=== PATIENT | female | born 1945 | race Caucasian/White ===

== ENCOUNTER 2017-08-16 16:40 | Emergency (ER) | payer MEDICARE, MEDICAID ==
[~2017-08-16] VITALS: Ht 162.6 cm; Wt 73.0 kg
[~2017-08-16 16:40] MED LIST: ASPIRIN 325MG325 MG PO; ASPIRIN 81MG TA81 MG PO; FLEXERIL10 MG PO; LORTAB 5/500 501 TAB PO; MEDROL 4MG. DOSE4 MG PO; NASAL SPRAY NS; PLAVIX 75MG TAB75 MG PO
--- NOTE | 2017-08-16 16:45 | Emergency Room Report ---
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 Clinical Suspician of Infection? Mental Status: Sepsis Risk: Have you (or family members/close friends) recently traveled outside the [place]? If Yes, where/when: Have you had exposure to infectious disease within the past month? TB? Other? Specify: Source patient, RN notes reviewed Exam Limitations no limitations Comment Pt comes to the ED with complaints of trouble breathing for the past few days. History of COPD but no nebs or inhalers and not on O2. Feels like she gets hot and coughs but non-productive and no sore throat. She says she still smokes but not very much. Also complains of DONOVAN Cardiac Chest Pain Chest pain indicative of cardiac No ALLERGIES Coded Allergies: Penicillins (08/26/16) Sulfa (Sulfonamide Antibiotics) (08/26/16) diphtheria toxoid,fluid (08/26/16) tetanus and diphtheria toxoids (TETANUS & DIPHTHERIA TOXOIDS) (08/26/16) Home Medications Reported Medications ASPIRIN (Aspirin 325MG) 325 MG PO DAILY History Medical History General CAD? No Angina: No [place]: No Hypertension? No Hyperlipidemia? No CHF? No DVT? No PE? No COPD? Yes Asthma? No Anemia? No GERD? No Gastric ulcers? No GI Bleed? No Hernia? No Thyroid Problems? No Hypothyroidism? No CVA? No Seizures? No Diabetes? No Renal Insuffiency? No End Stage Renal Disease? No UTI? No Stones? No BPH? No GB Disease: No Nephritic Syndrome? No Asplenia? No Hepatitis? No Sickle Cell Disease? No Arthritis? No Migraines? No Cataracts? No Glaucoma? No MRSA? No HIV? No TB? No Anxiety? No Depression? No Cancer? No More? 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 Lung Sounds bilateral: decreased breath sounds. 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 No Results/Orders Laboratory Tests 08/16/17 1812: Urine Color Pending, Urine Appearance Pending, Urine pH Pending, Ur Specific [place] Pending 08/16/17 1640: Sodium 140, Potassium 3.9, Chloride 106, Carbon Dioxide 26, BUN 12, Creatinine 0.9, Estimated Creat Clear 66, Estimated GFR (MDRD) 62, Glucose 109 H, Calcium 9.2, Total Bilirubin 0.2, AST 23, ALT 25, Alkaline Phosphatase 109, Creatine Kinase 364 H, CK-MB (CK-2) Rel Index 1.1, CK and CKMB Interp 4.1 H, Troponin I < 0.02, Total Protein 7.4, Albumin 3.9, Globulin 3.5 H, Albumin/Globulin Ratio 1.1, WBC 9.6, RBC 4.55, Hgb 13.9, Hct 42.8, MCV 94.2, RDW 12.7, Plt Count 215, MPV 8.7, Gran % 54.4, Gran # 5.2, Lymphocytes % 33.8, Monocytes % 6.0, Eosinophils % 4.9, Basophils % 0.8, Lymphocytes # 3.3, Monocytes # 0.6, Eosinophils # 0.5 H, Basophils # 0.1, PUBS MCHC 32.4, MCH 30.5 Current Medication Orders Sig/Cathy Start time Last Medication Dose Route Stop Time Status Admin Albuterol/Ipratropium 0 .STK-MED ONE 08/16 1803 DC INH Methylprednisolone 0 .STK-MED ONE 08/16 1801 DC Sodium Succinate .ROUTE Albuterol/Ipratropium 3 ML ONCE ONE 08/16 1800 DC 08/16 INH 08/16 Methylprednisolone 125 MG ONCE ONE 08/16 1800 DC 08/16 Sodium Succinate IV 08/16 1801 1802 Sodium Chloride 10 ML PRN PRN 08/16 1700 AC IV 08/17 1647 Orders Procedure Date/time Status DIET-NOTHING BY MOUTH 08/16 D Active URINALYSIS/COMPLETE 08/16 1809 Active RT REQUEST DUONEB 08/16 1757 Active ELECTROCARDIOGRAM REQUEST 08/[address] HEAD REQ 08/16 1647 Active IV SALINE LOCK 08/16 1647 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 08/16 1647 Active CBC WITH AUTO DIFF 08/16 1647 Complete CARDIAC ENZYMES 08/16 164 Complete CHEM 12 PROFILE 08/16 1647 Complete XRAY/CT/US XRAY/CT/US XRAY chest XR interpretation by reviewed by me Xray Results normal/NAD, COPD BUT NO ACUTE INFILTRATES Departure Departure Time of Disposition 1808 Disposition DC Home or Self Care(routine) Clinical Impression Primary Impression: Acute exacerbation of chronic obstructive pulmonary disease Secondary Impressions: Cystitis without hematuria Rhabdomyolysis Qualifiers: Rhabdomyolysis type: non-traumatic Qualified Code: M62.82 - Rhabdomyolysis Condition STABLE Referrals Leonel Taylor MD (PCP/Family): 3 Days-Call Office Patient Instructions Acute Cystitis, Chronic Obstructive Pulmonary Disease, DI for Acute Cystitis, DI for Chronic Obstructive Pulmonary Disease, DI for Rhabdomyolysis Additional Instructions Use medicines as directed and followup with PCP in 2 to 3 days for re- evaluation. Return to the ED with any worsening symptoms. Pt encouraged to drink lots of fluids to help with the Muscle enymes being elevated. Discharge Counseling Counseled pt/family regarding diagnosis, test results, home care, follow up needs Prescriptions Current Visit Scripts Prednisone (Prednisone 5MG) 5 MG PO DIRECTED #39 TAB 6 tabs QD X 3D 4 tabs QD X 3D 2 tabs QD X 3D 1 tab QD X 3D Albuterol Sulfate (Proair Hfa) 2 PUFF IH Q6HP PRN COPD #1 INH Ref 1 Levofloxacin (Levaquin 500MG) 500 MG PO DAILY #10 TAB ED Critical Care Critical Care No If Critical Care minutes are documented, the time involved in the performance of seperately reportable procedures was not counted toward critical care time documented. I directly delivered medical care to this critically ill and/or injured patient. Timely evaluation and treatment was necessary to address the significant organ system(s) dysfunction present in this patient. at [id number]
[2017-08-16 16:52] LABS: HEMOGLOBIN 13.9 g/dL (12.2-16.2); LYMPH # 3.3 K/mm3 (0.7-4.5); LYMPH % 33.8 % (10-50.0)
[2017-08-16 17:17] LABS: BUN 12 mg/dL (7-18)
[2017-08-16 17:37] LABS: GFR (ESTIMATED) 62 ML/MIN (59-)
--- NOTE | 2017-08-16 18:02 | RADIOLOGY REPORT PS360 ---
CHEST(2 VIEWS-NOT PORTABLE) HISTORY: CHEST PAIN ORDERING PHYSICIAN: Veronika Borden MD PATIENT AGE: 71 years COMPARISON: 08/26/2016 FINDINGS: The cardiomediastinal silhouette and pulmonary vascularity are within normal limits. The lungs are clear without infiltrates, suspicious nodules, or pleural effusions. No acute bony abnormalities. IMPRESSION: No change with no acute finding
--- NOTE | 2017-08-16 18:04 | RADIOLOGY REPORT PS360 ---
CT HEAD W/O CONTRAST HISTORY: Headache, history of aneurysm C/O WORSENING PAIN IN HEAD; HX OF ANEURYSM ORDERING PHYSICIAN: Veronika Borden MD PATIENT AGE: 71 years COMPARISON: 05/04/2013 TECHNIQUE: Axial images obtained without contrast. Brain and bone windows reviewed. FINDINGS: No midline shift, mass effect, intracranial hemorrhage, hydrocephalus, or extra-axial fluid collection is evident. There is a stent present within the right carotid artery cavernous and suprasellar portion. Nonspecific hypoattenuation is present in the periventricular subcortical white matter consistent with ischemic gliotic change from microvascular disease The calvarium has an unremarkable appearance. No mastoid effusion. The visualized paranasal sinuses are unremarkable. IMPRESSION: 1. No acute intracranial pathology. 2. Chronic microangiopathic changes.
[2017-08-16] MEDS ORDERED: PROAIR HFA0.09 MG/AC IH (18:12)
[2017-08-16] MEDS ORDERED: PREDNISONE 5MG.5 MG PO (18:12)
[2017-08-16] MEDS ORDERED: LEVAQUIN500 MG PO (18:13)
[2017-08-16 18:29] LABS: URINE BILIRUBIN - DIPSTICK NEGATIVE (NEG); URINE BLOOD TRACE-LYSED (NEG)
[2017-08-16 18:38] LABS: URINE SQUAMOUS CELLS 20-50 #/hpf (0-5)
[2017-08-16 18:55] VITALS: BP 133/92
--- OUTSIDE RECORDS SUMMARY | 2017-08-17 04:34 | External Medical Summary Rpt | CCD ---
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 Name Role Phone A Karen MENDIETA MD PSC, A Unavailable Unavailable Karen MENDIETA MD PSC ABORDO MEETA, ABORDO Unavailable Unavailable MEETA ALHAJERI ABD, Unavailable Unavailable ALHAJERI ABD [facility] Unavailable Unavailable MEDICAL, [facility] AYACH SEGUNDO, AYACH SEGUNDO Unavailable Unavailable AYOOB AND, AYOOB AND Unavailable Unavailable BALLERT ELSA, BALLERT Unavailable Unavailable ELSA ERWIN FRA, ERIWN Unavailable Unavailable FRA BERNERT CHARLOTTE, BERNERT Unavailable Unavailable CHARLOTTE BESSON JULIO C, BESSON Unavailable Unavailable JULIO C NIKITA SHADIA, NIKITA Unavailable Unavailable SHADIA HADLEY ALL, HADLEY ALL Unavailable Unavailable [place] [facility] IM[facility] Unavailable Unavailable SERVICE, [facility] Unavailable Unavailable SERVICE, [facility] BRUENING JR FADUMO, Unavailable Unavailable BRUENING JR FADUMO RAEANN RAN, Unavailable Unavailable CALCHERYL RAN [facility] Unavailable Unavailable HOSP, [facility] Unavailable Unavailable CAMPUS, [facility] CELLAROSI - YORBA, Unavailable Unavailable ASIF M, CELLAROSATNAM - EWELINARBEduardo, ASIF M [facility] Unavailable Unavailable [facility], [facility] Unavailable Unavailable [facility], [facility] TOBY JR DAMIAN, Unavailable Unavailable TOBY JR DAMIAN CROSSFIELD SHADIA, Unavailable Unavailable CROSSFIELD SHADIA COLTEN GALLEGOS, COLTEN GALLEGOS Unavailable Unavailable GORDON MAT, GORDON Unavailable Unavailable MAT DORITY SRI, DORITY Unavailable Unavailable SRI EUGENIA GABBIE, EUGENIA Unavailable Unavailable GABBIE ERLANDSON MAXINE, Unavailable Unavailable ERLANDSON MAXINE ERNSPIKER MAXINE, Unavailable Unavailable ERNSPIKER MAXINE ELTON DUNN, Unavailable Unavailable ELTON DUNN FRIED A, FRIED A Unavailable [facility] CANDELARIO PASHA, CANDELARIO Unavailable Unavailable PASHA SORTO II ALA, SORTO II Unavailable Unavailable [facility] Un[facility] Un[facility], [facility] Unavailable Unavailable HOSPITAL P, [facility] P [facility] Unavailable Unavailable SPECIALISTS, [facility] MONTALVO JULIO C, MONTALVO JULIO C Unavailable Unavailable [facility] Unavailable Unavailable PSC, [facility] Unavailable Unavailable KATHERINE, [facility] KATHERINE BRAYDON SINGH RAL, BRAYDON Unavailable Unavailable JR RAL [facility] Unavailable Unavailable IMAGING [facility], [facility] Unavailable Unavailable LLC, [facility] KILPELA JEA, KILPELA Unavailable Unavailable JEA USHA LEEANN, USHA LEEANN Unavailable Unavailable CLAUDETTE C, CLAUDETTE C Unavailable Unavailable [facility]UD[facility], [facility] Un[facility], Unavailable [facility]available [email or web address] [place], Unavailable Unavailable ATTN: [facility], [facility], ATTN: [facility] Unavailable Unavailable HOLDINGS, [facility] Unavailable Unavailable HOLDINGS, [facility], Unavailable Unavailable [facility], Unavailable Unavailable [facility] LINDSEY KAYLYN, LINDSEY KAYLYN Unavailable Unavailable LUTZ TRA, LUTZ TRA Unavailable Unavailable [facility] Unavailable Unavailable SERVICES, [facility] FARHAT SANTIAGO, FARHAT Unavailable Unavailable PAMELA EHSAN PAB, EHSAN Unavailable Unavailable PAB EHSAN PAB, EHSAN Unavailable Unavailable PAB EHSAN, SHAKIRA, Unavailable Unavailable EHSAN, SHAKIRA RUBI JULIO C, RUBI JULIO C Unavailable Unavailable NOELLE BRILL YOL, Unavailable Unavailable NOELLE BRILL YOL LONG BRANT, LONG BRANT Unavailable [facility]available [facility] TSE DUN, TSE Unavailable Unavailable DUN OCTAVIA MICAELA, Unavailable Unavailable OCTAVIA MICAELA LEIDY DUANE, LEIDY DUANE Unavailable Unavailable PALIWAL, VIDHU H, Unavailable Unavailable PALIWAL, VIDHU H PAMPATI [facility], PAMPATI Unavailable Unavailable [facility] PAMPATI, MAHENDER, Unavailable Unavailable PAMANNALEE, MIKE [facility], Unavailable Unavailable PLL[facility], [facility] HOLT A, HOLT A Unavailable Unavailable HOLT, A R, HOLT, A Unavailable Unavailable R PODAPATI, NAGESWARA Unavailable Unavailable R, PODAPATI, NAGESWARA R [facility], [facility], Unavailable Unavailable [facility], Unavailable Unavailable [facility] Unavailable Unavailable LLC, [facility] Unavailable Unavailable LLC, [facility], Unavailable Unavailable [facility] RAMAIAH DIN, RAMAIAH Unavailable Unavailable DIN RASLAU FLA, RASLAU Unavailable Unavailable FLA RICE, CASA Y, RICE, Unavailable Unavailable CASA Y LAUREANO SHADIA, Unavailable Unavailable LAUREANO SHADIA YASMANY TATA, YASMANY TATA Unavailable Unavailable RUSU SHADIA, RUSU SHADIA Unavailable Unavailable KENDRA LOUISA, KENDRA Unavailable Unavailable LOUISA SARTAWI TAR, SARTAWI Unavailable Unavailable TAR SCHLEENBAKER RAN, Unavailable Unavailable SCHLEENBAKER RAN ARUN ABHI, ARUN ABHI Unavailable Unavailable SOKAN BAB, SOKAN BAB Unavailable Unavailable [facility] Unavailable Unavailable [facility], [facility] Unavailable Unavailable [facility], [facility] Unavailable Unavailable EXTENDED H, [facility] EXTENDED H BUCHANAN SCO, BUCHANAN Unavailable Unavailable SCO STEYN PIE, STEYN PIE Unavailable Unavailable STILES NAN, STILES Unavailable Unavailable NAN TALANOW ROL, TALANOW Unavailable Unavailable ROL LALA PHI, LALA PHI Unavailable Unavailable HARP RATNA, HARP RATNA Unavailable Unavailable JEANNETTE MAT, JEANNETTE MAT Unavailable Unavailable [facility], Unavailable Unavailable [facility] BIANCA LEEANN, Unavailable Unavailable BIANCALUIS BRADSHAW WALKER FOR, WALKER Unavailable Unavailable FOR WHAYNE JR THO, WHAYNE Unavailable Unavailable JR THO Purpose Continuity of Care Document - 12-18-2007 through 2016 Problems Code Diagnosis DOS Provider Status [id number] UNS OPEN 09-03-2016 [facility] U[facility] INITIAL ENCOUNTER J449 CHRONIC 08-26-2016 [facility] P DISEASE UNS [id number] PAIN IN 08-26-2016 [facility] R05 COUGH 08-26-2016 [facility] R0602 SHORTNESS 08-26-2016 [place] [facility] [id number] UNS INJURY 08-26-2016 [facility] ENCOUNTER [id number] UNSPECIFIED 08-26-2016 [facility] P ENCOUNTER Z720 TOBACCO USE 08-26-2016 [facility] P I671 CEREBRAL 05-28-2016 [facility] NONRUPTURED [facility] I739 PERIPHERAL 05-28-2016 [facility] DISEASE [facility] UNSPECIFIED H538 OTHER 05-23-2016 [facility] DISTURBANCE [facility] S H9313 TINNITUS 05-23-2016 [facility] R51 HEADACHE 05-23-2016 [facility] [id number] PRIMARY 05-07-2016 [facility]STEOARTH[facility] T[facility] RIGHT [facility] PSC SHOULDER [id number] OTHER 05-07-2016 [facility] SYNOVITIS [facility] PSC TENOSYNOVIT IS RIGHT SHOULDER N81385 PAIN IN 04-12-2016 [facility] 38151 OSTEOARTHRO 06-14-2015 [facility] UNSPEC SERV GEN/LOC [facility]OUNDATION PELV REGION&THIG H 90223 UNSPECIFIED 06-14-2015 [facility] ARTHROPATHY [facility] OTHER SPECIFIED SITES V4364 HIP JOINT 06-14-2015 [facility] BY OTHER MEANS 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 V5481 AFTERCARE 12-07-2014 [facility] FOLLOW[facility] JOINT [facility] REPLACEMENT 57698 PRESSURE 11-26-2014 [facility] UNSPECIFIED MEDICAL SITE EQUIPME 7209 UNSPECIFIED 11-26-2014 [facility] INFLAMMATOR MEDICAL Y EQUIPME SPONDYLOPAT HY 4373 CEREBRAL 09-20-2014 [facility], SERV NONRUPTURED FOUNDATION V1259 PERS HX, 09-20-2014 [facility] DISEASES OF CIRCULATORY SYSTEM V6709 FOLLOW-UP 09-20-2014 [facility] FOLLOWING OTHER SURGERY 5990 URINARY 09-13-2014 [facility] INFECTION LA SITE NOT SPECIFIED 2858 OTHER 08-03-2014 [facility] SPECIFIED HEALTH ANEMIAS CAMPUS 01098 OTHER 08-03-2014 [facility] CHRONIC HEALTH PAIN CAMPUS 496 CHRONIC 08-03-2014 [facility]WAY [facility] OBSTRUCTION CAMPUS NEC 16606 MUSCLE 08-03-2014 [facility] WEAKNESS HEALTH (GENERALIZE CAMPUS D) 7812 ABNORMALITY 08-03-2014 [facility] OF [facility] 99614 UNSPECIFIED 08-03-2014 [facility] HEALTH OF URINE CAMPUS 73773 UNSPECIFIED 08-03-2014 [facility] URINARY [facility] INCONTINENC CAMPUS E 49136 OTH 07-28-2014 A Karen DELGADO MD PSC NS DUE INTERNAL JOINT PROSTHESIS 62354 PAIN IN 07-20-2014 [facility] PELVIC REGION AND THIGH 26598 UNSPECIFIED 07-17-2014 [facility] ARTHROPATHY [facility] PELVIC REGION AND THIGH 77612 NONTRAUMATI 07-17-2014 [facility] RUPTURE SERV OF TENDONS [facility]OUND[facility] OF BICEPS 7993 UNSPECIFIED 07-17-2014 [facility]BILITY [facility] 2859 UNSPECIFIED 07-14-2014 [facility] ANEMIA [facility] 7823 EDEMA 07-14-2014 [facility] V4365 KNEE JOINT 07-14-2014 [facility] BY OTHER [facility] MEANS 3384 CHRONIC 07-13-2014 [facility] SYNDROME [facility] 67880 UNSPECIFIED 07-13-2014 [facility] CONSTIPATIO [place] N 63302 PRESSURE 07-09-2014 [facility] BUTTOCK [facility] 57775 PRESSURE 07-09-2014 [facility] STAGE SERV II [facility]OUND[facility] 82825 GENERALIZED 07-09-2014 [facility] 7292 UNSPECIFIED 07-08-2014 [facility] NEURALGIA SERV NEURITIS [facility] AND RADICULITIS 1123 CANDIDIASIS 07-03-2014 [facility] 57798 OTHER 07-03-2014 [facility] SPECIFIED SERV ERYTHEMATOU [facility]OUNDAT[facility] S CONDITION OTHER 19422 PRESSURE 07-03-2014 [facility] LOWER SERV BACK [facility] 16221 PRESSURE 07-03-2014 [facility] STAGE SERV I [facility] 7140 RHEUMATOID 07-03-2014 [facility]THRITIS SERV [facility] 7820 DISTURBANCE 07-03-2014 [facility] V1302 PERSONAL 07-03-2014 [facility] URINARY HOS[facility] TRACT INFECTION V5789 OTHER 07-03-2014 [facility]CIF[facility]HAB[facility]AT [facility] ION PROCEDURE OTHER 31294 PRIMARY LOC 06-30-2014 [facility] OSTEOARTHRO FOUNDAT[facility] SIS PELVIC REGION&THIG H 55749 CHEST PAIN 06-30-2014 [facility] UNSPECIFIED SERV [facility] V4589 OTHER 06-30-2014 [facility] POSTSURGICA SERV L STATUS [facility] OTHER V5881 FITTING AND 06-30-2014 [facility] OF [facility] VASCULAR CATHETER 2102 BENIGN 06-28-2014 [facility] OF SERV MAJOR [facility] SALIVARY GLANDS 7840 HEADACHE 06-28-2014 [facility] 77400 OTHER 06-28-2014 [facility] DYSPNEA AND SERV [facility] RESPIRATORY ABNORMALITI ES 7295 PAIN IN 06-24-2014 [facility]FT [facility] TISSUES OF FOUNDATION LIMB 55875 SHORTNESS 06-24-2014 [facility] SERV [facility] 14853 OTHER 06-24-2014 [facility] NONSPECIFIC SERV ABNORMAL [facility] FINDING OF LUNG FIELD 7881 DYSURIA 06-16-2014 [facility] 4329 UNSPECIFIED 06-06-2014 [facility] INTRACRANIA L HEMORRHAGE V5863 LONG-TERM 06-06-2014 [facility] USE OF HOSPITAL ANTIPLATELE T/ANTITHROM BOTIC 01692 UNSPECIFIED 05-03-2014 [facility] TINNITUS SERV [facility] 79620 UNSPECIFIED 05-03-2014 [facility] SENSORINEUR [facility] AL HEARING LOSS 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 38968 SPINAL STEN 04-21-2014 [facility]UMB [facility] SERV W/O FOUNDATIO NEUROGENIC CLAUDICATIO N 7243 SCIATICA 04-21-2014 [facility] 5967 HEMORRHAGE 01-03-2014 [facility] INTO [facility] BLADDER [facility] WALL 2270 BENIGN 01-02-2014 [facility] OF SERV ADRENAL FOUNDATIO GLAND 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 591 HYDRONEPHRO 01-02-2014 [facility] SIS [facility] 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 [facility] 5969 UNSPECIFIED 01-02-2014 [facility] DISORDER [facility] OF BLADDER [facility] 61157 HEMATURIA 01-02-2014 [facility] UNSPECIFIED SERV [facility] 6238 OTHER 01-02-2014 [facility] SPECIFIED [facility] NONINFLAMMA SERVICE TORY DISORDER VAGINA 6259 UNSPEC 01-02-2014 [facility]MPTOM [facility] ASSOC [facility] W/FEMALE GENITAL ORGANS 43124 ABDOMINAL 01-02-2014 [facility] PAIN, AMBULANCE UNSPECIFIED SERVICE SITE 5952 OTHER 12-16-2013 [facility]RON[facility] CYSTITIS [facility] 5959 UNSPECIFIED 12-16-2013 [facility] CYSTITIS [facility] 54784 OTHER 12-16-2013 [facility]CIF[facility] DISORDERS FOUNDAT[facility] OF BLADDER 28974 GROSS 12-16-2013 [facility]EMAT[facility] 4292 UNSPECIFIED 12-13-2013 [facility] CARDIOVASCU LAR DISEASE V7283 OTHER 12-13-2013 [facility] PRE-OPERATI VE EXAMINATION V7284 UNSPECIFIED 12-13-2013 [facility] PRE-OPERATI [facility] VE EXAMINATION 6256 FEMALE 11-24-2013 [facility] INCONTINENC E 11284 URGE 11-24-2013 [facility] HOSPITAL E 39265 INCONTINENC 11-24-2013 [facility] SENSORY AWARENESS 5539 ABHISHEK UNS 11-15-2013 [facility] ABD SERV CAV W/O FOUNDATIO MENTION OBST/GANGRE N 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 29491 DIVERTICULO 11-15-2013 [facility] COLON 45069 CALCU 11-15-2013 [facility] AZLE W/O MENTION CHOLECYST/O BST 7935 NONSPECIFIC 11-15-2013 [facility] FINDING RAD & OTH EXAM ORGAN 72997 ANEURYSM OF 11-09-2013 [facility] SPECIFIED ARTERY 32301 OTHER 10-06-2013 [facility] URINARY [facility] INCONTINENC FOUNDATIO E 34826 POLYURIA 10-01-2013 [facility] 79909 DEHYDRATION 09-16-2013 [facility] 7226 DEGENERATIO 09-16-2013 [facility] INTERVERTEB RAL DISC SITE UNSPEC V8801 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 82535 MALIHA 08-10-2013 [facility]IGRAINE SERV NEC W/O FOUNDATIO INTRACT W/O STAT MIGRNOSUS 63422 NUCLEAR 08-10-2013 [facility] SCLEROSIS SERV [facility] 2382 NEOPLASM OF 08-09-2013 [facility] BEHAVIOR OF SKIN 51458 OTHER 08-09-2013 [facility] KERATOSIS V5866 LONG-TERM 07-15-2013 [facility] ASPIRIN 2410 NONTOXIC 05-26-2013 [facility] 2409 GOITER, 05-05-2013 [facility] UNSPECIFIED SERV F[facility] 4371 OTH 05-05-2013 [facility] GENERALIZED SERV ISCHEMIC FOUNDATIO CEREBROVASC ULAR DISEASE 4429 OTHER 05-04-2013 [facility] UNSPECIFIED SITE 2559 UNSPECIFIED 11-19-[address] [facility] OF ADRENAL GLANDS 2558 OTHER 10-05-2012 [facility] HOSPITAL DISORDERS OF ADRENAL GLANDS 5718 OTHER 10-05-2012 [facility] NONALCOHOLI C LIVER DISEASE 1120 CANDIDIASIS 09-25-2012 A Karne FABIAN MD [facility] 54113 OSTEOARTHRO 09-14-2012 [facility] UNSPEC EMERGENCY WHETHER SERVICES GEN/LOC UNSPEC SITE 7220 DISPLCMT 09-14-2012 [facility] MEDICAL INTERVERT IMAGING ASS DISC WITHOUT MYELOPATHY 7224 DEGENERATIO 09-14-2012 [facility] OF MEDICAL CERVICAL IMAGING ASS INTERVERTEB RAL DISC 8470 NECK SPRAIN 09-14-2012 [facility] 7821 RASH AND 09-07-2012 A Karen SUAZO MD [facility] NONSPECIFIC SKIN ERUPTION 7842 SWELLING 08-24-2012 [facility] M[facility] OR SERV LUMP IN FOUNDATIO HEAD AND NECK 683 ACUTE 06-22-2012 [facility] LYMPHADENIT SERV IS FOUNDATIO 7242 LUMBAGO 06-15-2012 Eduardo MENDIETA MD [facility] 2469 UNSPECIFIED 05-15-2012 [facility] DISORDER [facility] OF THYROID [facility] 27817 COR 05-15-2012 [facility] ATHEROSLERO SERV UNSPEC FOUNDATIO TYPE VESSEL ELIM IRA/LYNN T 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 IRA CORONARY ARTERY 4779 ALLERGIC 05-15-2012 [facility] RHINITIS [facility] CAUSE [facility] UNSPECIFIED 5533 DIAPHRAGMAT 05-15-2012 [facility] W/O HOSPITAL MENTION OBSTRUCTION /GANGREN 7231 CERVICALGIA 05-15-2012 [facility] 12178 DYSPHONIA 05-15-2012 [facility] 7856 ENLARGEMENT 05-15-2012 [facility] NODES 57768 OTHER VOICE 01-27-2012 [facility] RESONANCE [facility] DISORDERS 2720 PURE 10-01-2011 [facility] TEROLEMIA 2724 OTHER AND 10-01-2011 [facility] UNSPECIFIED NEUMANNS EXTENDED H HYPERLIPIDE MARJORIE 3559 MONONEURITI 10-01-2011 [facility] S OF NEUMANNS UNSPECIFIED EXTENDED H SITE 4910 SIMPLE 10-01-2011 [facility] CHRONIC NEUMANNS BRONCHITIS EXTENDED H 11557 UNSPECIFIED 10-01-2011 [facility] NE[facility]AN[facility] ARTHROPATHY EXTENDED H SITE UNSPECIFIED V5861 LONG-TERM 10-01-2011 [facility] USE OF ANTICOAGULA NTS V6759 OTHER 10-01-2011 [facility] EXAMINATION OTHER 4240 MITRAL 09-10-2011 [facility] DISORD[facility] MEDICAL 69010 OTHER CHEST 09-10-2011 [facility] MEDICAL 05629 ABDOMINAL 09-10-2011 [facility], SERVICES GENERALIZED 79399 ABDOMINAL 09-10-2011 [facility] OTHER REGIONAL SPECIFIED MEDICAL SITE V641 SURG/OTH 09-10-2011 [facility] NOT REGIONAL DONE MEDICAL BECAUSE CONTRAINDIC ATION 4659 ACUTE URIS 08-27-2011 [facility] OF NEUMANNS UNSPECIFIED EXTENDED H SITE 24511 OTHER 08-05-2011 [facility]URODIAGNO MALAISE AND STICPSC FATIGUE V5883 ENCOUNTER 06-21-2011 [facility] THERAPEUTIC DRUG MONITORING V7109 OBSERVATION 06-21-2011 [facility] OF OTHER [facility]AGNO[facility]ICS SUSPECTED MENTAL CONDITION 0539 HERPES 05-23-2011 [facility] WITHOUT EXTENDED H MENTION OF COMPLICATIO N 7244 THORACIC/JAY 05-23-2011 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 [facility] OR LARYNX 4786 EDEMA OF 05-14-2011 [facility] 4241 AORTIC 04-25-2011 [facility]ORD[facility] 59599 PRECORDIAL 04-25-2011 HEART & PAIN WEBSITE ADMIN V5869 LONG-TERM 04-18-2011 [facility] (CURRENT) [facility] USE OF OTHER MEDICATIONS 2278 SHAYNE 04-06-2011 [facility] GLANDS&RELA CIERA STRCT 35307 JAW PAIN 04-06-2011 [facility], ATTN: DANIEL 2374 NEOPLASM 03-27-2011 [facility] UN[facility]AIN [facility] BHV F[facility] OTH&UNSPEC ENDOCRN GLANDS 4019 UNSPECIFIED 03-13-2011 [facility], HYPERTENSIO ATTN: DANIEL N 05843 OTHER 03-13-2011 [place] [facility], DISORDER OF ATTN: DANIEL INTESTINES 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 5789 UNSPECIFIED 03-07-2011 [facility] HEMORRHAGE PHYSICIAN OF KATHERINE GASTROINTES TINAL TRACT 5781 BLOOD IN 03-04-2011 [facility] 2350 NEOPLASM 02-18-2011 [facility] BEHAVIOR KATHERINE MAJOR SALIV GLANDS 65575 TOX DIFFUSE 02-18-2011 [facility] W/O CLINIC PSC THYROTOX CRISIS/STOR M 4780 HYPERTROPHY 02-18-2011 [facility] PSC TURBINATES 78338 DYSPHAGIA 02-18-2011 [facility] UNSPECIFIED CLINIC PSC 2397 NEOPLSM UNS 02-07-2011 [facility], ENDOCRN ATTN: DANIEL GLND&OTH PART NERV SYS 7062 SEBACEOUS 02-01-2011 E[facility] PAB CYST 93966 EFFUSION OF 12-03-2010 [facility] SHOULDER STICPS JOINT 29248 PAIN IN 12-03-2010 NEURODIAGNO JOINT, [facility] SHOULDER REGION 53239 STIFFNESS 12-03-2010 NEURODIAGNO OF JOINT [facility] SHOULDER REGION 96353 OTHER 11-08-2010 [facility] SPECIFIED MEDI ARTHROPATHY [facility] SITE UNSPECIFIED 02839 LOC 10-04-2010 [facility] OSTEOARTHRO MED CTR, S NOT SPEC ATTN: DENE WHETHER PRIM/SEC HAND 00618 OSTEOARTHRO 10-04-2010 [facility] SIS UNSPEC [facility] GEN/LOCALIZ ED HAND 70065 SWELLING OF 10-04-2010 [facility] LIMB MED CTR, ATTN: DENE 9158 OTH&UNSPEC 10-04-2010 [facility] SUP INJURY MED CTR, FINGER ATTN: DENE WITHOUT MENTION INF 90682 OTHER&UNSPE 09-21-2010 [facility] C DISC MED CTR, DISORDER ATTN: EVERE UNSPEC REGION V571 OTHER 09-21-2010 [facility] PHYSICAL MED CTR, THERAPY ATTN: DENE 7212 THORACIC 09-04-2010 [facility] SPONDYLOSIS MED CTR WITHOUT MYELOPATHY 7241 PAIN IN 09-04-2010 [facility] THORACIC MED CTR SPINE 7245 UNSPECIFIED 09-04-2010 [facility] PAB BACKACHE 66890 PAINFUL 08-25-2010 [facility] RESPIRATION MED CTR 95242 HERPES 08-24-2010 [facility] PAB ZOSTER KERATOCONJU NCTIVITIS V574 ORTHOPTIC 08-21-2010 [facility] TRAINING MED CTR 66149 PAIN IN 07-19-2010 E[facility] PAB JOINT, LOWER LEG 24788 GALLSTONE 06-13-2010 [facility] 86784 DISORDER OF 06-06-2010 [facility] UNSPECIFIED CENT 39160 ACUTE 05-17-2009 [facility], LARYNGITIS, SHAKIRA WITHOUT MENTION OF OBSTRUCTIO 7234 BRACHIAL 03-02-2009 [facility], NEURITIS OR SHAKIRA RADICULITIS NOS 9156 FINGER SUP 09-07-2008 [place] [facility] W/O CODY MED CTR OPEN WOUND&W/O MENTION INF 21398 NAUSEA 12-19-2007 [facility] Allergies, Adverse Reactions, Alerts Type Drug Allergy Adverse Reaction to Substance Substance Reaction Severity PCN (penicillin) Unknown Unknown SULFA (sulfonamide) Unknown Unknown Dtap (Daptacel, Unknown Unknown Infanrix, [employer]) Diphtheria Toxoid, Unknown Unknown Adsorbed Vital Signs 05-04-2013 20:11 Name Value Interpretat Reference Comment ion Range Body 98.8 [degF] Temperature BP 83 mm[Hg] Diastolic BP Systolic 137 mm[Hg] Heart 78 /min Rate/Pulse O2% 96 % Respiratory 18 /min Rate 05-04-2013 20:03 Name Value Interpretat Reference Comment ion Range Body 98.8 [degF] Temperature 05-04-2013 19:24 Name Value Interpretat Reference Comment ion Range BP 90 mm[Hg] Diastolic BP Systolic 142 mm[Hg] Heart 79 /min Rate/Pulse O2% 96 % Respiratory 18 /min Rate Results Labs Lab Lab Date Result Refere Interp Status Commen Order Detail nces retati t Range on CBC w auto diff (08-16-2017 16:40) Automat = 4.9 % 0.1-12. complet ed 017 0 ed blood 16:40 eosinop hils/10 0 leukocy t Blood = 5.2 1.8-7.8 complet granulo 017 K/mm3 ed cytes 16:40 automat ed count (numb Granulo = 54.4 37.0-80 complet cyte 017 % .0 ed percent 16:40 age Blood = 42.8 37.0-47 complet hematoc 017 % .0 ed rit 16:40 (volume fractio n) Blood = 13.9 12.2-16 complet hemoglo 017 g/dL .2 ed bin 16:40 measure ment (mass/v olum Absolut = 3.3 0.7-4.5 complet e 017 K/mm3 ed lymphoc 16:40 yte count Lymphoc = 33.8 10-50.0 complet yte 017 % ed count, 16:40 blood, automat ed Mean = 30.5 27-31.2 complet corpusc 017 pg ed ular 16:40 hemoglo bin ([facility]) determ Automat = 32.4 31.8-35 complet ed 017 g/dl .4 ed erythro 16:40 cyte mean corpusc ular h Automat = 94.2 82.2-97 complet ed 017 fl .8 ed erythro 16:40 cyte mean corpusc ular v Absolut = 0.6 0.1-1.0 complet e 017 K/mm3 ed monocyt 16:40 e count Gilchrist % = 6.0 % 1.7-9.3 complet 017 ed 16:40 Automat = 8.7 7.4-10. complet ed 017 fl 4 ed blood 16:40 platele t mean volume landry Blood = 215 142-424 complet platele 017 K/mm3 ed t count 16:40 Red = 4.55 4.2-5.4 complet blood 017 M/mm3 ed cell 16:40 count Automat = 12.7 11.5-17 complet ed 017 % .5 ed erythro 16:40 cyte distrib ution width Blood = 9.6 4.8-10. complet leukocy 017 K/MM3 8 ed alen 16:40 count (number /volume ) Automat = 0.1 0-0.2 complet ed 017 K/MM3 ed blood 16:40 basophi l count (count/ vo Baso % = 0.8 % 0.1-2.0 complet 017 ed 16:40 Automat = 0.5 0.0-0.4 complet ed 017 K/mm3 ed blood 16:40 eosinop hil count BASIC METABOLIC PANEL (05-04-2013 19:10) Glucose 108 74-106 complet 013 mg/dL ed Bld-mCn 19:10 c BUN 11 7-18 complet Bld-mCn 013 mg/dL ed c 19:10 Creat 0.9 0.6-1.0 complet SerPl-m 013 mg/dL ed Cnc 19:10 ESTIMAT 05-04-2 78 50-200 complet ED 013 ML/MIN ed CREATIN 19:10 INE CLEARAN CE GFR 62 59- complet (ESTIMA 013 ML/MIN ed CIERA) 19:10 Sodium 05-04-2 141 136-145 complet SerPl-s 013 mmoL/L ed Cnc 19:10 Potassi 2 4.1 3.5-5.1 complet um 013 mmoL/L ed SerPl-s 19:10 Cnc Chlorid 105 98-107 complet e 013 mmoL/L ed SerPl-s 19:10 Cnc CO2 05-04- 30 21.0-32 complet SerPl-s 013 mmoL/L .0 ed Cnc 19:10 Calcium 05-04- 9.2 8.5-10. complet 013 mg/dL 1 ed SerPl-m 19:10 Cnc CBC with AUTO DIFF (05-04-2013 19:10) WBC # 07-02-2 10.6 4.8-10. complet Bld 013 K/MM3 8 ed Auto 19:10 RBC # 02-2 5.08 4.2-5.4 complet Bld 013 M/mm3 ed Auto 19:10 Hgb 02-2 15.4 12.2-16 complet Bld-mCn 013 g/dL .2 ed c 19:10 Hct Fr 05-04-2 48.1 % 37.0-47 complet Bld 013 .0 ed 19:10 MCV RBC 05-04-2 94.7 fl 82.2-97 complet 013 .8 ed 19:10 MCH RBC 02-2 30.4 pg 27-31.2 complet Qn 013 ed Auto 19:10 MEAN 02-2 32.1 31.8-35 complet CORPUSC 013 g/dl .4 ed ULAR 19:10 HGB CONC RDW RBC 02-2 13.7 % 11.5-17 complet Auto 013 .5 ed 19:10 Platele 05-04- 228 142-424 complet t Bld 013 K/mm3 ed Ql 19:10 Manual MEAN 05-04-2 7.9 fl 7.4-10. complet PLATELE 013 4 ed T 19:10 VOLUME Granulo 07-02-2 57.1 % 37.0-80 complet cytes 013 .0 ed Fr Bld 19:10 Auto LYMPH % 07-02-2 32.8 % 10-50.0 complet 013 ed 19:10 Monocyt 07-02-2 5.4 % 1.7-9.3 complet es Fr 013 ed Bld 19:10 Auto Eosinop 07-02-2 4.1 % 0.1-12. complet hil Fr 013 0 ed Bld 19:10 Auto Basophi 07-02-2 0.6 % 0.1-2.0 complet ls Fr 013 ed Bld 19:10 Auto Granulo 07-02-2 6.0 1.8-7.8 complet cytes # 013 K/mm3 ed Bld 19:10 Auto Lymphoc 07-02-2 3.5 0.7-4.5 complet ytes Fr 013 K/mm3 ed Bld 19:10 Auto Monocyt 07-02-2 0.6 0.1-1.0 complet es # 013 K/mm3 ed Bld 19:10 Auto Eosinop 07-02-2 0.4 0.0-0.4 complet hil # 013 K/mm3 ed Bld 19:10 Auto Basophi 07-02-2 0.1 0-0.2 complet ls # 013 K/MM3 ed Bld 19:10 Auto Procedures Procedure DOS Code Location Performer Comment DEBRIDEME 11619 [facility] NT OPEN [facility] WOUND 20 INC INC SQ CM/< DEBRIDEME 49455 TVAO VO NT OPEN 6 [facility] WOUND 20 INC INC SQ CM/< PHYSICAL 73504 [facility] VO THERAPY 6 [facility] EVALUATIO INC INC N RADIOLOGI 42947 [facility] ALL C EXAM 6 MEDICAL CHEST 2 IMAGING VIEWS ASS FRONTAL&L ATERAL CREATINE 72971 [facility] VO KINASE MB 6 [facility] FRACTION INC INC ONLY RADIOLOGI 47515 [facility] C 6 MEDICAL EXAMINATI IMAGING ON KNEE 3 ASS VIEWS CREATINE 49178 [facility] VO KINASE 6 [facility] TOTAL INC INC ECG 89879 [facility] VO ROUTINE 6 [facility] ECG INC INC W/LEAST 12 LDS TRCG ONLY W/O I&R COMPREHEN 06312 [facility] SIVE 6 [facility] [place] [address] T[facility] VO TROPONIN 6 [facility] QUANTITAT INC INC [place] BLOOD 30324 TAVO VO COUNT 6 [facility] COMPLETE INC INC AUTO&AUTO DIFRNTL WBC ECG 73958 TAVO FABRICIO ROUTINE 6 [facility] W/LEAST P 12 LDS I&R ONLY ANGIOGRAP 28123 [place] ALHAJERI HY 6 MEDICAL ABD EXTREMITY SERV FOUNDATIO UNILATERA N L RS&I 3D 74572 [place] ALHAJER[place] RENDERING 6 MEDICAL ABD SERV W/INTERP& FOUNDATIO POSTPROC N DIFF WORK STATION ANESTHESI 78804 [place] DORITY A 6 MEDICAL SRI DIAGNOSTI SERV C FOUNDATIO ARTERIOGR N APHY/VENO GRAPH SLCTV 92986 [place] LUZ MARINA CATH 6 MEDICAL ABD CAROTID/I SERV NNOM ART FOUNDATIO ANGIO N INTRCRANL ART CREATININ 863[address] [facility] E BLOOD 6 Y [place] [address] [place] RASLAU ANGIOGRAP 6 MEDICAL FLA HY HEAD SERV W/CONTRAS FOUNDATIO T/NONCONT N RAST LOCM Q9967 [facility] UNIVERS [phone] 6 Y Y MG/ML HOSPITAL HOSPITAL IODINE CONCENTRA TION PER ML THERAPEUT 67256 PROFESSIO CROSSFIEL IC PX 1/> 6 [facility] EACH 15 PSC MIN EXERCISES THERAPEUT 10902 PROFESSIO CROSSFIEL IC PX 1/> 6 [facility] EACH 15 PSC MIN EXERCISES PHYSICAL 26924 PROFESSIO CROSSFIEL THERAPY 6 NAL REHAB D SHADIA EVALUATIO ASSOC N PSC RADEX 89523 [facility]AC[facility] ALL SHOULDER 6 MEDICAL 1 VIEW IMAGING ASS RADEX 34880 TAVO VO SHOULDER 6 [facility] COMPLETE INC INC MINIMUM 2 VIEWS [address] [facility] HIPS 5 [facility] 2 VIEWS ANTEROPOS T PELVIS RADEX HIP 77112 LESLIE HOOD 5 MEDICAL FRA UNILATERA SERV L FOUNDATIO COMPLETE N MINIMUM 2 VIEWS RADIOLOGI 65230 LESLIE HOOD C 5 MEDICAL FRA EXAMINATI SERV ON PELVIS FOUNDATIO 1/2 N VIEWS HOS BED E0260 [facility] SEMI-ELEC 5 HOME HOME W/ANY MEDICAL MEDICAL TYPE SIDE EQUIPME EQUIPME RAIL W/MATTRSS PWR E0181 [facility] PRESSURE 5 HOME HOME REDUCING MEDICAL MEDICAL MATTRESS EQUIPME EQUIPME OVERLY/PA D PUMP PWR E0181 [facility] PRESSURE 4 HOME HOME REDUCING MEDICAL MEDICAL MATTRESS EQUIPME EQUIPME OVERLY/PA D PUMP HOS BED E0260 [facility] HOW[facility] SEMI-ELEC 4 HOME HOME W/ANY MEDICAL MEDICAL TYPE SIDE EQUIPME EQUIPME RAIL W/MATTRSS HOS BED E0260 [facility] HOW[facility] SEMI-ELEC 4 HOME HOME W/ANY MEDICAL MEDICAL TYPE SIDE EQUIPME EQUIPME RAIL W/MATTRSS PWR E0181 [facility] PRESSURE 4 HOME HOME REDUCING MEDICAL MEDICAL MATTRESS EQUIPME EQUIPME OVERLY/PA D PUMP GUIDE C17[address] [facility] WIRE 4 Y Y HOSPITAL HOSPITAL INJECTION J1644 [facility] HEPARIN 4 Y Y SODIUM [facility] PER 1000 [address]HROM[address] [facility] IN TIME 4 Y Y HOSPITAL HOSPITAL LOCM Q9967 [facility] [phone] 4 Y Y MG/ML HOSPITAL HOSPITAL IODINE CONCENTRA TION PER ML COMPREHEN [address] [facility] SIVE 4 Y Y METABOLIC [facility] PANEL INJECTION J0330 [facility] 4 Y Y SUCCINYLC [facility] HOLINE CHLORIDE UP TO 20 MG SLCTV 02819 [place] ALHAJER[place] CATH 4 MEDICAL ABD INTRNL SERV CAROTID FOUNDATIO ART ANGIO N INTRCRNL ART CLOSURE C[address] [facility] DEVICE 4 Y Y VASCULAR H[facility]PITAL HOSPITAL INTRDUCR/ C1894 [facility] SHEATH 4 Y Y NOT GUID [facility] INTRACARD EP NON-LASR BLOOD [address] [facility] COUNT 4 Y Y COMPLETE [facility] AUTOMATED INJECTION J3[address] [facility] FENTANYL 4 Y Y CITRATE [facility] 0.1 MG ANESTHESI 24877 [place] RAMAIAH A 4 MEDICAL DIN CAROTID/C SERV ORONARY FOUNDATIO THER N IVNTL RAD INFUSION J7030 [facility] NORMAL 4 Y Y SALINE [facility] SOLUTION 1000 CC SLCTV 34036 [place] ALHAJERI CATH 4 MEDICAL ABD CAROTID/I SERV NNOM ART FOUNDATIO ANGIO N INTRCRANL ART 3D 51845 [place] RENDERING 4 MEDICAL MEDICAL SERV SERV W/INTERP& FOUNDATIO FOUNDATIO POSTPROC N N DIFF WORK STATION US VASC [address] [facility] ACCESS 4 Y Y SITS VSL [facility] PATENCY NDL ENTRY PLCMT G0269 [facility] OCCL DEVC 4 Y Y [facility] IRENE/ART POST SURG/INTR VNL PROC CULTURE 28679 COMBINED COMBINED BACTERIAL 4 PHYSICIAN PHYSICIAN S LA S LA QUANTTATI VE COLONY COUNT URINE URNLS DIP 18340 COMBINED COMBINED 4 PHYSICIAN PHYSICIAN STICK/TAB S LA S LA LET REAGENT AUTO MICROSCOP Y SUSCEPTIB 59941 COMBINED COMBINED ILITY 4 PHYSICIAN PHYSICIAN STUDY S LA S LA ANTIMICRO BIAL DISK METHOD PWR E0181 [facility] LAWRENCE PRESSURE 4 HOME HOME REDUCING MEDICAL MEDICAL MATTRESS EQUIPME EQUIPME OVERLY/PA D PUMP HOS BED E0260 [facility] LAWRENCE SEMI-ELEC 4 HOME HOME W/ANY MEDICAL MEDICAL TYPE SIDE EQUIPME EQUIPME RAIL W/MATTRSS WHL ATTCH E0155 [facility] LAWRENCE RIGD 4 HOME HOME PICK-UP MEDICAL MEDICAL WALK-PAIR EQUIPME EQUIPME SEAT ATTCH WALK SBSQ 16917 A C KILPELA NURSING 4 GAYATRI ART [facility] PSC CARE/DAY E/M STABLE 10 MIN SBSQ 66350 A C KILPELA NURSING 4 GAYATRI ART [facility] PSC CARE/DAY E/M STABLE 10 MIN RADEX HIP [address] [facility] 4 Y Y UNILATERA [facility] L 1 VIEW RADIOLOGI 74252 [facility] 4 Y Y [facility] PELVIS 11/04 [facility] [address] [facility] 4 MEDICAL NAN DAY SERV MANAGEMEN FOUNDATIO T 30 MIN/< SBSQ 73596 [place] [address] MEDICAL [place] CARE/DAY SERV 25 FOUNDATIO MINUTES SBSQ 66560 [place] [address] MEDICAL NAN CARE/DAY SERV 25 FOUNDATIO MINUTES SBSQ 68189 [place] [address] MEDICAL NAN CARE/DAY SERV 25 FOUNDATIO MINUTES SBSQ 44169 [place] [address] MEDICAL NAN CARE/DAY SERV 25 FOUNDATIO MINUTES SBSQ 23208 [place] [address] MEDICAL NAN CARE/DAY SERV 25 FOUNDATIO MINUTES SBSQ 37997 [place] [address] MEDICAL NAN CARE/DAY SERV 25 FOUNDATIO MINUTES SBSQ 67654 [place] [address] MEDICAL MAXINE CARE/DAY SERV 25 FOUNDATIO MINUTES SBSQ 22174 [place] [address] MEDICAL KER RAN CARE/DAY SERV 25 FOUNDATIO MINUTES SBSQ 31050 [facility] 4 MEDICAL KER RAN CARE/DAY SERV 25 FOUNDATIO MINUTES SBSQ 93035 [place] [address] MEDICAL NAN CARE/DAY SERV 25 FOUNDATIO MINUTES SBSQ 75004 [place] [address] MEDICAL NAN CARE/DAY SERV 25 FOUNDATIO MINUTES SBSQ 45600 [place] [address] MEDICAL NAN CARE/DAY SERV 25 FOUNDATIO MINUTES SBSQ 20050 [place] [address] MEDICAL NAN CARE/DAY SERV 25 FOUNDATIO MINUTES DUP-SCAN 47953 EUGENIA EUGENIA XTR VEINS 4 GABBIE GABBIE COMPLETE BILATERAL STUDY SBSQ 37414 [place] [address] MEDICAL MICAELA CARE/DAY SERV 35 FOUNDATIO MINUTES SBSQ 06640 [place] [address] MEDICAL ALA CARE/DAY SERV 35 FOUNDATIO MINUTES N INITIAL 54385 [facility] 4 MEDICAL MICAELA CARE/DAY SERV 70 FOUNDATIO MINUTES SBSQ 87479 [facility] 4 MEDICAL ALA CARE/DAY SERV 35 FOUNDATIO MINUTES N SBSQ 35754 [facility] 4 MEDICAL ALA CARE/DAY SERV 25 FOUNDATIO MINUTES N SBSQ 28909 [facility] 4 MEDICAL ALA CARE/DAY SERV 25 FOUNDATIO MINUTES N LEVEL III 39776 [place] LAUREANO SURG 4 MEDICAL SHADIA PATHOLOGY SERV FOUNDATIO GROSS&MIRTA ROSCOPIC EXAM DECALCIFI 04876 [place] LAUREANO CATION 4 MEDICAL SHADIA PROCEDURE SERV FOUNDATIO ECG 75383 [place] CLAUDETTE CHI ROUTINE 4 MEDICAL ECG SERV W/LEAST FOUNDATIO 12 LDS N I&R ONLY RADEX HIP 78657 [facility] 4 MEDICAL MEDICAL UNILATERA SERV SERV L FOUNDATIO FOUNDATIO COMPLETE MINIMUM 2 VIEWS RADIOLOGI 93091 [place] ERWIN 4 MEDICAL FRA EXAMINATI SERV ON PELVIS FOUNDATIO 1/2 VIEWS ARTHRP 07602 [place] ARUN ABHI ACETBLR/P 4 MEDICAL EVELIN FEM SERV PROSTC FOUNDATIO AGRFT/ALG RFT SBSQ 59239 [facility] 4 MEDICAL ALA CARE/DAY SERV 25 FOUNDATIO MINUTES N SBSQ 20083 [facility] 4 MEDICAL ALA CARE/DAY SERV 25 FOUNDATIO MINUTES N SBSQ 54765 [facility] 4 MEDICAL CARE/DAY SERV 25 FOUNDATIO MINUTES N SBSQ 52539 [facility] 4 MEDICAL CARE/DAY SERV 25 FOUNDATIO MINUTES N SBSQ 21055 [facility] 4 MEDICAL CARE/DAY SERV 25 FOUNDATIO MINUTES N RADIOLOGI 81952 [facility] LEEANN C 4 MEDICAL EXAMINATI SERV ON CHEST FOUNDATIO [place] FRONTAL RADIOLOGI 16299 [place] [facility] C 4 MEDICAL EXAMINATI SERV ON CHEST FOUNDATIO [place] FRONTAL RADEX HIP 12833 [place] [facility] 4 MEDICAL UNILATERA SERV L FOUNDATIO COMPLETE MINIMUM 2 VIEWS ARTHRP 12257 [place] ARUN ABHI ACETBLR/P 4 MEDICAL EVELIN FEM SERV PROSTC FOUNDATIO AGRFT/ALG RFT ANESTHESI 45609 [facility] A OPEN 4 LTH JR FADUMO TOTAL HIP ANESTHESI A PSC ARTHROPLA STY RADIOLOGI 92584 [place] USHA LEEANN C 4 MEDICAL EXAMINATI SERV ON PELVIS FOUNDATIO 1/2 VIEWS ECG 14244 [place] CLAUDETTE CHI ROUTINE 4 MEDICAL ECG SERV W/LEAST FOUNDATIO 12 LDS N I&R ONLY LEVEL III 74239 [facility] SURG 4 MEDICAL [place] PATHOLOGY SERV FOUNDATIO GROSS&MIRTA ROSCOPIC EXAM DECALCIFI 49468 [facility] CATION 4 MEDICAL [place] PROCEDURE SERV FOUNDATIO INITIAL 63107 [facility] 4 MEDICAL CARE/DAY SERV 50 FOUNDATIO MINUTES N CUL BACT 35434 [facility] 4 DIAGNOSTI DIAGNOSTI ADDL [facility] Cream Style METHS DEFINITIV E EA ISOL CULTURE 18947 [facility] BCT 4 DIAGNOSTI DIAGNOSTI ISOL&PRSM [facility] PTV ID ISOLATE EA URINE CULTURE 55811 [facility] BACTERIAL 4 DIAGNOSTI DIAGNOSTI [facility] QUANTTATI VE COLONY COUNT URINE SUSCEPTIB 57198 [facility] LTY STDY 4 DIAGNOSTI DIAGNOSTI ANTIMICRB [facility] IAL MICRO/AGA R DILUTJ BLOOD 67518 [facility] UNIVERS COUNT 4 Y Y COMPLETE [facility] AUTOMATED URNLS DIP 45566 [facility] UNIVERS 4 Y Y STICK/TAB [facility] LET REAGENT AUTO MICROSCOP Y PREALBUMI [address] [facility] N 4 Y Y HOSPITAL HOSPITAL COLLECTIO [address] [facility] N VENOUS 4 Y Y BLOOD [facility] VENIPUNCT URE CULTURE [address] [facility] BACTERIAL 4 Y Y HOSPITAL [facility] QUANTTATI VE COLONY COUNT URINE CUL BACT 51163 [facility] UNIVERS AEROBIC 4 Y Y ADDL [facility] METHS DEFINITIV E EA ISOL SUSCEPTIB [address] [facility] LTY STDY 4 Y Y [facility] IAL MICRO/AGA R DILUTJ BASIC [address] [facility] METABOLIC 4 Y Y PANEL [facility] CALCIUM TOTAL RADEX HIP 29645 [facility] VO 4 MEM HOSP MEM HOSP UNILATERA INC INC L COMPLETE MINIMUM 2 VIEWS RADEX 54869 [facility] VO SPINE 4 MEM HOSP MEM HOSP LUMBOSACR INC INC AL ONLY BENDING 2/3 VIEWS [facility] 12987 [place] B[place] DISCHARGE 4 MEDICAL ELSA DAY SERV MANAGEMEN FOUNDATIO T 30 MIN/< AMB A[address] [facility] SERVICE 4 AMBULANCE AMBULANCE ALS SERVICE SERVICE EMERGENCY TRANSPORT LEVEL 1 GROUND A0425 Blume Distillation MILEAGE 4 AMBULANCE AMBULANCE PER SERVICE SERVICE STATUTE MILE 83985 [place] HEIDI RETROPERI 4 MEDICAL MAT TONEAL SERV REAL TIME FOUNDATIO W/[place] [address] [place] DEWAYNE ABDOMEN & 4 MEDICAL SCO PELVIS SERV W/CONTRAS FOUNDATIO T MATERIAL ANES 72870 [place] SEANIDER TRANSURET 4 MEDICAL RAN HRAL SERVICES W/[place] [address] [place] LINDSEY KAYLYN SURG 4 MEDICAL PATHOLOGY SERV FOUNDATIO GROSS&IMRTA ROSCOPIC EXAM CYSTOURET 40588 [place] HROSCOPY 4 MEDICAL ELSA WITH SERV BIOPSY FOUNDATIO ECG [address] [facility] ROUTINE 4 Y Y ECG [facility] W/LEAST 12 LDS TRCG ONLY W/O I&R ECG 25129 [place] YASMANY TATA ROUTINE 4 MEDICAL ECG SERV W/LEAST FOUNDATIO 12 LDS N I&R ONLY CULTURE [address] [facility] BACTERIAL 4 Y Y [facility] QUANTTATI VE COLONY COUNT URINE CULTURE [address] [facility] BCT 4 Y Y ISOL&[facility] PTV ID ISOLATE EA URINE CULTURE [address] [facility] BACTERIAL 4 Y Y [facility] QUANTTATI VE COLONY COUNT URINE URNLS DIP 18740 [place] 4 MEDICAL ELSA STICK/TAB SERV LET RGNT FOUNDATIO AUTO W/O MICROSCOP Y CYSTOURET 09554 [place] HROSCOPY 4 MEDICAL ELSA SERV FOUNDATIO CYSTOURET 29705 [place] HROSCOPY 4 MEDICAL ELSA SERV FOUNDATIO URNLS DIP 23718 [place] 4 MEDICAL ELSA STICK/TAB SERV LET RGNT FOUNDATIO AUTO W/[place] [address] [facility] ABDOMEN & 4 Y Y PELVIS [facility] W/O CONTRST 1/> BODY RE SUSCEPTIB [address] [facility] LTY STDY 4 Y Y ANTIMICRB [facility] IAL MICRO/AGA R DILUTJ LOCM Q99[address] [facility] [phone] 4 Y Y MG/ML [facility] IODINE CONCENTRA TION PER ML CUL BACT [address] [facility] AEROBIC 4 Y Y ADDL [facility] METHS DEFINITIV E EA ISOL CULTURE [address] [facility] BACTERIAL 4 Y Y [facility] QUANTTATI VE COLONY COUNT URINE 3D 85505 [place] RENDER[place] 4 MEDICAL MEDICAL SERV SERV W/INTERP& FOUNDATIO FOUNDATIO POSTPROC DIFF WORK STATION THROMBOPL [address] [facility] ASTIN 4 Y Y TIME HOSPITAL HOSPITAL PARTIAL PLASMA/WH OLE BLOOD INJECTION J2710 [facility] 4 Y Y NEOSTIGMI [facility] NE METHYLSUL FATE UP TO 0.5 MG INJECTION J3[address] [facility] FENTANYL 4 Y Y CITRATE [facility] 0.1 [address]ION J[address] [facility] NORMAL 4 Y Y SALINE [facility] SOLUTION 1000 CC ANESTHESI 66844 [place] TSE A 4 MEDICAL DUN CAROTID/C SERV ORONARY FOUNDATIO THER IVNTL RAD INJECTION J01[address] [facility] 4 Y Y ADRENALIN [facility] EPINEPHRI NE 0.1 MG US VASC [address] [facility] ACCESS 4 Y Y SITS VSL [facility] PATENCY NDL ENTRY PLCMT G0269 [facility] OCCL DEVC 4 Y Y HOSPITAL HOSPITAL IRENE/ART POST SURG/INTR VNL PROC COMPREHEN 8[address] [facility] SIVE 4 Y Y METABOLIC HOSPITAL HOSPITAL PANEL LOCM Q9967 [facility] [phone] 4 Y Y MG/ML HOSPITAL HOSPITAL IODINE CONCENTRA TION PER ML SLCTV 67960 [place] LUZ MARINA CATH 4 MEDICAL ABD INTRNL SERV CAROTID FOUNDATIO ART ANGIO INTRCRNL ART INJECTION J2405 [facility] 4 [facility] H[facility] 1 MG INTRDUCR/ C1894 [facility] SHEATH 4 Y Y NOT GUID [facility] INTRACARD EP NON-LASR CLOSURE C17[address] [facility] DEVICE 4 Y Y VASCULAR [facility]PITAL HOSPITAL BLOOD 35842 [facility] UNIVERS COUNT 4 Y Y COMPLETE [facility] AUTOMATED GUIDE C1769 [facility] WIRE 4 Y Y [facility] PROTHROMB [address] [facility] IN TIME 4 Y Y HOSPITAL HOSPITAL INJECTION J16[address] [facility] HEPARIN 4 Y Y SODIUM [facility] PER 1000 UNITS URNLS DIP 25861 [place] ALEX 3 MEDICAL ELSA STICK/TAB SERV LET RGNT FOUNDATIO AUTO W/O MICROSCOP Y FAREED 05439 [place] ALEX POST-VOID 3 MEDICAL ELSA ING SERV RESIDUAL FOUNDATIO URINE&/BL ADDER CAP CYTP [address] [facility] SLCTV 3 Y Y [facility] ENHANCEME NT INTERPJ XCPT C/V CULTURE [address] [facility] BACTERIAL 3 Y Y HOSPITAL HOSPITAL QUANTTATI VE COLONY COUNT URINE CULTURE 46361 [facility] BACTERIAL 3 EDDIE [facility] QUANTTATI VE COLONY COUNT URINE INFUSION J7030 [facility] NORMAL 3 Y Y SALINE HOSPITAL HOSPITAL SOLUTION 1000 CC BASIC [address] [facility] METABOLIC 3 Y Y PANEL HOSPITAL HOSPITAL CALCIUM TOTAL INJECTION J0[address] [facility] CEFEPIME 3 Y Y HOSPITAL HOSPITAL HYDROCHLO RIDE 500 MG BLOOD 07387 [facility] UNIVERS COUNT 3 Y Y COMPLETE HOSPITAL HOSPITAL AUTOMATED HOSPITAL [id number] [facility] OBSERVATI 3 Y Y ON HOSPITAL HOSPITAL SERVICE PER HOUR INJECTION J0[address] [facility] CEFEPIME 3 Y Y HOSPITAL [facility] HYDROCHLO RIDE 500 MG INJECTION J[address] [facility] 3 Y Y LEVOFLOXA [facility] WILLI 250 MG INFUSION J70[address] [facility] NORMAL 3 Y Y SALINE [facility] SOLUTION 1000 CC CULTURE [address] [facility] BACTERIAL 3 Y Y HOSPITAL [facility] QUANTTATI VE COLONY COUNT URINE INFUSION J7030 [facility] NORMAL 3 Y Y SALINE [facility] SOLUTION 1000 CC GROUND A0425 [facility] AMBULANCE AMBULANCE [place] [address] [facility] 3 Y Y THERAPY/P [facility] ROPHYLAXI S /DX 1ST TO 1 HR THERAPEUT [address] [facility] IC 3 Y Y INJECTION [facility] IV PUSH EACH NEW DRUG THER [address] [facility] PROPH/DX [address] [facility] SEQL IV PUSH SBST/DRUG FAC AMB A0427 [facility] 3 AMBULANCE AMBULANCE ALS SERVICE SERVICE EMERGENCY TRANSPORT LEVEL [address] [facility] 3 Y Y LEVOFLOXA [facility] WILLI 250 MG INJECTION J[address] [facility] 3 Y Y HYDROMORP [facility] STEVE UP TO 4 MG INJE[address] J[address] [facility] H[facility] 1 MG LOCM Q[address] [facility] [phone] Y Y MG/ML [facility] IODINE CONCENTRA TION PER ML COMPREHEN [address] [facility] SIVE 3 Y Y METABOLIC [facility] [place] [address] [facility] 3 Y Y THER [facility] PROPH ADDL SEQUENTIA L TO 1 HR INITIAL 01241 [facility]AT[facility] 3 EMERGENCY ON SERVICES CARE/[place] [address] [place] [address] [facility] ABDOMEN & 3 Y Y PELVIS [facility] W/CONTRAS T MATERIAL URNLS DIP [address] [facility] 3 Y Y STICK/TAB [facility] HOSPITAL LET REAGENT AUTO MICROSCOP Y BLOOD 43163 [facility] COUNT 3 Y Y COMPLETE [facility] AUTO&AUTO DIFRNTL WBC BASIC 54379 [facility] METABOLIC 3 EDDIE EDDIE PANEL [place] [address] [facility]G 3 DIAGNOSTI DIAGNOSTI PATHOLOGY CS CS GROSS&MIRTA ROSCOPIC EXAM SLCTV 83789 [place] CATH 3 MEDICAL ABD INTRNL SERV CAROTID FOUNDATIO ART ANGIO INTRCRNL ART ANGRPH 94652 [place] CATH F-UP 3 MEDICAL MEDICAL STD TCAT SERV SERV OTHER FOUNDATIO FOUNDATIO THAN THROMBYLS IS TRANSCATH 12217 [place] ETER 3 MEDICAL ABD EMBOLIZAT SERV ION ANY FOUNDATIO METH RS&I ANES ICRA 16166 [place] PIE 3 MEDICAL ICAR/AORT SERV IC THER FOUNDATIO IVNTL RAD ARTL ARTL 28127 [place] PIE CATHJ/CAN 3 MEDICAL NULJ SERV MNTR/JOE FOUNDATIO SFUSION SPX PRQ TCAT 24924 [place] PERMANENT 3 MEDICAL MEDICAL SERV SERV OCCLUSION FOUNDATIO FOUNDATIO /EMBOLIZA TION PRQ QUALITY ASSURANCE COACH 3D 76095 [place] RENDERING 3 MEDICAL MEDICAL SERV SERV W/INTERP& FOUNDATIO FOUNDATIO POSTPROC DIFF WORK STATION US SOFT 47525 [facility] VO TISSUE 3 [facility] HEAD & INC [place] [address] [place] ANGIOGRAP 3 MEDICAL FLA HY HEAD SERV W/CONTRAS FOUNDATIO T/[place] [address] [place] ANGIOGRAP 3 MEDICAL FLA HY NECK SERV W/CONTRAS FOUNDATIO T/[place] [address] [facility] VO HEAD/BRAI 3 [facility] N W/O INC INC CONTRAST MATERIAL BLOOD 56310 [facility] VO COUNT 3 [facility] COMPLETE INC INC AUTO&AUTO DIFRNTL WBC BASIC 87967 [facility] VO METABOLIC 3 [facility] PANEL INC INC CALCIUM TOTAL 3D 46673 [facility] TAVO RENDERING 3 [facility] W/INTERP INC INC & [place] 3D [address] [place] RENDERING 3 MEDICAL ABD SERV W/INTERP& FOUNDATIO POSTPROC DIFF WORK STATION ANESTHESI 93769 [place] SATISH PIE A 3 MEDICAL CAROTID/C SERV ORONARY FOUNDATIO THER IVNTL RAD SLCTV [address]73 [place] CATH 3 MEDICAL ABD INTRNL SERV CAROTID FOUNDATIO ART ANGIO INTRCRNL ART LOCM Q9967 [facility] UNIV[facility] [phone] 2 Y Y MG/ML [facility] [place] [address] [place] AYOOB AND ABDOMEN & 2 MEDICAL PELVIS SERV W/CONTRAS FOUNDATIO T MATERIAL GLUCOSE 93522 Eduardo Jones RUBI JULIO C QUANTITAT 2 GAYATRI ART [place] [address] TAVO VO CERVICAL 2 [facility] SPINE W/O INC INC CONTRAST MATERIAL THERAPEUT 67857 T[facility] VO IC 2 [facility] PROPHYLAC INC INC TIC/DX INJECTION SUBQ/IM 3D 24615 T[facility] VO RENDERING 2 [facility] INC INC W/INTERP& POSTPROC DIFF WORK STATION SBSQ 36845 [place] [facility] 2 MEDICAL CARE/DAY SERV 15 FOUNDATIO MINUTES SLCTV 92339 [place] CATHJ 2 MEDICAL MEDICAL 3RD+ ORD SERV SERV SLCTV FOUNDATIO FOUNDATIO THRC/BRCH /CPHLC BRNCH ANGIOGRAP 61523 [place] HY 2 MEDICAL ABD CAROTID SERV CEREBRAL FOUNDATIO UNILATERA L RS&I TRANSCATH 34497 [place] ETER 2 MEDICAL MEDICAL EMBOLIZAT SERV SERV ION ANY FOUNDATIO FOUNDATIO METH RS&I ANGRP 46311 [place] CATH F-UP 2 MEDICAL MEDICAL STD TCAT SERV SERV OTHER FOUNDATIO FOUNDATIO THAN THROMBYLS IS TCAT 56112 [place] PERMANENT 2 MEDICAL MEDICAL SERV SERV OCCLUSION FOUNDATIO FOUNDATIO /EMBOLIZA TION PRQ QUALITY ASSURANCE COACH ARTL 73740 [place] CATHJ/CAN 2 MEDICAL SRI NULJ SERV MNTR/JOE FOUNDATIO SFUSION SPX PRQ ANES ICRA 35204 [place] 2 MEDICAL SRI ICAR/AORT SERV IC THER FOUNDATIO IVNTL RAD ARTL ECG 31722 [place] C ROUTINE 2 MEDICAL ECG SERV W/LEAST FOUNDATIO 12 LDS I&R ONLY URNLS DIP [address] [facility] 2 Y Y STICK/TAB HOSPITAL [facility] LET REAGENT AUTO MICROSCOP Y BLOOD [address] [facility] COUNT 2 Y Y COMPLETE [facility] AUTOMATED COLLECTIO [address] [facility] N VENOUS 2 Y Y BLOOD [facility] VENIPUNCT URE BASIC [address] [facility] METABOLIC 2 Y Y PANEL [facility] CALCIUM [place]OTAL [place] VASC 26931 [place] ACCESS 2 MEDICAL ABD SITS VSL SERV PATENCY FOUNDATIO NDL ENTRY PLCMT [id number] [facility] OCCL DEVC 2 Y Y HOSPITAL [facility] IRENE/ART POST SURG/INTR VNL PROC 3D [address] [facility] RENDERING 2 Y Y [facility]PITAL [facility] W/INTERP& POSTPROC DIFF WORK STATION ANESTHESI 38979 [place] A 2 MEDICAL SRI DIAGNOSTI SERV C FOUNDATIO ARTERIOGR APHY/VENO GRAPH INFUSION J7030 [facility] NORMAL 2 Y Y SALINE [facility] SOLUTION 1000 CC INJECTION J18[address] [facility] 2 Y Y KETOROLAC [facility] TROMETHAM INE PER 15 MG INJECTION J[address] [facility] 2 Y Y NEOSTIGMI [facility] NE METHYLSUL FATE UP TO 0.5 MG INJECTION J[address] [facility] 2 Y Y SUCCINYLC [facility] HOLINE CHLORIDE UP TO [address]M [address] [facility] [phone] Y Y MG/ML [facility] HOSPITAL IODINE CONCENTRA TION PER ML CLOSURE C1760 [facility] DEVICE 2 Y Y VASCULAR [facility] INTRDUCR/ C1894 [facility] SHEATH 2 Y Y NOT GUID [facility] INTRACARD EP NON-LASR ARTL 33761 [place] CATHJ/CAN 2 MEDICAL SRI NULJ SERV MNTR/JOE FOUNDATIO SFUSION SPX PRQ SLCTV [address] [facility] CATH 1ST 2 Y Y 2ND ORD HOSPITAL HOSPITAL THRC/BRCH /CPHLC BRNCH ANGIOGRAP 63385 [facility] 2 Y Y [facility]ITAL HOSPITAL /CERVICAL /&/INTRAC RAN RS&I ANGIOGRAP 36978 [facility] 2 Y Y CERVICOCE [facility] REBRAL CATHETER RS&I SLCTV 85764 [facility] 2 Y Y 3RD+ ORD [facility] SLCT THR/BR [facility] J7120 [facility] LACTATE 2 Y Y INFUSION HOSPITAL HOSPITAL UP TO 1000 CC ANGIOGRAP 55317 [facility] 2 Y Y [facility] HOSPITAL CEREBRAL BILATERAL RS&I ANGIOGRAP 50722 [facility] 2 Y Y [facility] HOSPITAL CERVICAL BILATERAL RS&I GUIDE C17[address] [facility] WIRE 2 Y Y HOSPITAL HOSPITAL INJECTION J1644 [facility] HEPARIN 2 Y Y SODIUM HOSPITAL HOSPITAL PER 1000 UNITS ECG [address] [facility] ROUTINE 2 Y Y ECG HOSPITAL HOSPITAL W/LEAST 12 LDS TRCG ONLY W/O I&R PROTHROMB [address] [facility] IN TIME 2 Y Y HOSPITAL HOSPITAL ECG 57360 [place] ROUTINE 2 MEDICAL ECG SERV W/LEAST FOUNDATIO 12 LDS I&R ONLY BLOOD [address] [facility] COUNT 2 Y Y COMPLETE HOSPITAL HOSPITAL AUTOMATED URNLS DIP [address] [facility] 2 Y Y STICK/TAB HOSPITAL HOSPITAL LET REAGENT AUTO MICROSCOP Y THROMBOPL [address] [facility] ASTIN 2 Y Y TIME HOSPITAL HOSPITAL PARTIAL PLASMA/WH OLE BLOOD BASIC [address] [facility] METABOLIC 2 Y Y PANEL HOSPITAL HOSPITAL CALCIUM TOTAL US SOFT [address] [facility] TISSUE 2 Y Y HEAD & HOSPITAL HOSPITAL NECK REAL TIME IMGE DOCM LOCM Q9967 [facility] [phone] 2 Y Y MG/ML HOSPITAL HOSPITAL IODINE CONCENTRA TION PER ML CT SOFT [address] [facility] TISSUE 2 Y Y NECK [facility] HOSPITAL W/[place] [address] [facility] UREA 2 Y Y NITROGEN [facility] QUANTITAT [place] CREATININ [address] [facility] E BLOOD [address] [address] THORAX [address] [facility] 2 Y Y W/CONTRAS [facility] T MATERIAL LARYNGOSC 27540 [place] BIAN[place] OPY 2 MEDICAL LEEANN FLEXIBLE SERV DIAGNOSTI FOUNDATIO C COMPREHEN 08708 [facility] SIVE 1 DIAGNOSTI DIAGNOSTI METABOLIC CS CS PANEL LIPID 80440 [facility] PANEL 1 DIAGNOSTI DIAGNOSTI CS CS PRESCRIPT G8553 [facility] IONS GEN 1 NEUMANNS PAB TRANSMITT EXTENDED ED H QUALIFIED ERX SYS THROMBOPL 62653 [facility] ASTIN 1 AN AN TIME REGIONAL REGIONAL PARTIAL MEDICAL MEDICAL PLASMA/WH OLE BLOOD INFUSION J7030 [facility] NORMAL 1 AN AN SALINE REGIONAL REGIONAL SOLUTION MEDICAL MEDICAL 1000 CC BASIC 96204 [facility] METABOLIC 1 AN AN PANEL REGIONAL REGIONAL CALCIUM MEDICAL MEDICAL TOTAL LOCM Q9967 [facility] [phone] 1 AN AN MG/ML REGIONAL REGIONAL IODINE MEDICAL MEDICAL CONCENTRA TION PER ML COLLECTIO 70805 [facility] N VENOUS 1 AN AN BLOOD REGIONAL REGIONAL VENIPUNCT MEDICAL MEDICAL URE BLOOD 10260 [facility] COUNT 1 AN AN COMPLETE REG[facility]AL REGIONAL AUTO&AUT[place] [address] [facility] ABDOMEN 1 AN AN W/O & REGIONAL REGIONAL W/CONTRAS MEDICAL MEDICAL T MATERIAL BLEEDING 36589 [facility] TIME TEST 1 AN AN REGIONAL REGIONAL MEDICAL MEDICAL PROTHROMB 38839 [facility] IN TIME 1 AN AN REGIONAL REGIONAL MEDICAL MEDICAL PRESCRIPT G8553 [facility] EHSAN IONS GEN 1 NEUMANNS PAB TRANSMITT EXTENDED ED H QUALIFIED ERX SYS MRI 69879 NEURODIAG LUTZ TRA SPINAL 1 NOSTICPSC CANAL CERVICAL W/O CONTRAST MATRL MRI 34039 NEURODIAG LUTZ TRA SPINAL 1 NOSTICPSC CANAL LUMBAR W/O CONTRAST MATERIAL PRESCRIPT G8553 [facility] IONS GEN 1 NEUMANNS PAB TRANSMITT EXTENDED ED H QUALIFIED ERX SYS HEPATIC 97813 [facility] FUNCTION 1 DIAGNOSTI DIAGNOSTI PANEL CS CS US SOFT 40585 [place] [facility] BRANT TISSUE 1 MEDICAL HEAD & SERV NECK REAL FOUNDATIO TIME IMGE DOCM PRESCRIPT G8553 [facility] EHSAN IONS GEN 1 NEUMANNS PAB TRANSMITT EXTENDED ED H QUALIFIED ERX SYS BILIRUBIN 36756 [facility] DIRECT 1 [place] [address] [facility] PHOSPHATA 1 DIAGNOSTI DIAGNOSTI SE CS CS ALKALINE TRANSFERA 34625 [facility] SE 1 DIAGNOSTI DIAGNOSTI ASPARTATE CS CS AMINO AST SGOT TRANSFERA 98450 [facility] SE 1 DIAGNOSTI DIAGNOSTI ALANINE CS CS AMINO ALT SGPT BILIRUBIN 48776 [facility] TOTAL 1 DIAGNOSTI DIAGNOSTI CS CS ALBUMIN 21069 [facility] SERUM 1 DIAGNOSTI DIAGNOSTI PLASMA/WH CS CS OLE BLOOD PRESCRIPT G8553 [facility] GEN 1 NEUMANNS PAB TRANSMITT EXTENDED ED H QUALIFIED ERX SYS EXC PRTD [address] [facility] CARLA/PRTD 1 Y Y GLND LAT [facility] DSJ&PRSRV FACIAL NR LEVEL V 38837 [facility] UNIVERS SURG 1 Y Y PATHOLOGY [facility] GROSS&MIRTA ROSCOPIC EXAM LARYNGOSC 25705 [facility]IVERS UNIVERS OPY W/WO 1 Y Y TRACHEOSC [facility] OPY W/MICRO/T ELESCOPE ECG [address] [facility] ROUTINE 1 Y Y ECG [facility] W/LEAST 12 LDS TRCG ONLY W/O I&R ECG 80371 [place]UD[place] C ROUTINE 1 MEDICAL ECG SERV W/LEAST FOUNDATIO 12 LDS I&R ONLY R& L HRT 65681 [facility] & CATH 1 VASCULAR VASCULAR W/INJEC SPECIALIS SPECIALIS HRT TS ART/GRFT& L VENT I CV STRS 35548 [facility] TST 1 VASCULAR XERS&/OR SPECIALIS RX CONT TS ECG W/O I&R CV STRS 00647 [facility] TST 1 MED CTR, MED CTR, XERS&/OR ATTN: ATTN: RX CONT DENE DENE ECG TRCG ONLY INJECTION J2785 [facility] 1 MED CTR, MED CTR, REGADENOS ATTN: ATTN: ON 0.1 MG DENE DENE ECHO 92158 [facility] TTHRC R-T 1 MED CTR, MED CTR, 2D ATTN: ATTN: W/WOM-MOD DENE DENE E COMPL SPEC&COLR D TECHNETIU A9500 [facility] M TC-99M 1 MED CTR, MED CTR, SESTAMIBI ATTN: ATTN: DX PER DANIEL SANCHEZ STUDY DOSE MYOCARDIA 00716 [facility] & L SPECT 1 VASCULAR VASCULAR SINGLE SPECIALIS SPECIALIS STUDY AT [facility] REST OR STRESS MYOCARDIA 00637 [facility] L SPECT 1 MED CTR, MED CTR, MULTIPLE ATTN: ATTN: STUDIES DENE DENE CREATININ 42852 [facility] E OTHER 1 [employer] SOURCE PH BODY 51393 [facility] FLUID NOT 1 [employer] ELSEWHERE SPECIFIED SPECTROPH 94105 [facility] OTOMETRY 1 [employer] ANALYT NOT ELSEWHERE SPECIFIED CT THORAX 23901 [facility] 1 MED CTR, MED CTR, W/CONTRAS ATTN: ATTN: [place] [address] [facility] INFUSION 1 MED CTR, MED CTR, HYDRATION ATTN: ATTN: INITIAL DENE DENE 31 MIN-1 [place] [address] [facility] INFUSION 1 MED CTR, MED CTR, THERAPY ATTN: ATTN: PROPHYLAX DENE DENE IS/DX EA HOUR CUL BACT 99906 [place] AEROBIC 1 MED CTR, MED CTR, ADDL ATTN: ATTN: METHS DENE DENE DEFINITIV E EA ISOL CULTURE 69687 [place] BACTERIAL 1 MED CTR, MED CTR, ATTN: ATTN: QUANTTATI DENE DENE VE COLONY COUNT URINE LOCM Q9967 [place] [phone] 1 MED CTR, MED CTR, MG/ML ATTN: ATTN: IODINE DENE DENE CONCENTRA TION PER ML COMPREHEN 74586 [place] SIVE 1 MED CTR, MED CTR, METABOLIC ATTN: ATTN: PANEL DENE DENE COLLECTIO 50529 [place] N VENOUS 1 MED CTR, MED CTR, BLOOD ATTN: ATTN: VENIPUNCT DENE DENE URE INJECTION J0696 [place] 1 [facility] CTR, MED CTR, CEFTRIAXO ATTN: ATTN: NE SODIUM DENE DENE PER 250 MG ARTERIAL 27510 [place] PUNCTURE 1 MED CTR, MED CTR, WITHDRAWA ATTN: ATTN: L BLOOD DENE DENE DX SUSCEPTIB 55772 [place] LTY STDY 1 MED CTR, MED CTR, ANTIMICRB ATTN: ATTN: IAL EVERE DENE MICRO/AGA R DILUTJ BLOOD 77893 [place] GASES ANY 1 MED CTR, MED CTR, ATTN: ATTN: COMBINATI DANIEL DENRadha ON PH PCO2 PO2 CO2 HCO3 HEMOGLOBI 07347 [place] N 1 MED CTR, MED CTR, METHEMOGL ATTN: ATTN: OBANSELMO SANCHEZ QUANTITAT [place] NATRIURET 43392 [place] IC 1 MED CTR, MED CTR, PEPTIDE ATTN: ATTN: DANIEL DENE URNLS DIP 89262 [place] 1 MED CTR, MED CTR, STICK/TAB ATTN: ATTN: ERIN SANCHEZ [place] [address] [place] TROPONIN 1 MED CTR, MED CTR, QUANTITAT ATTN: ATTN: [place] DENE DENE BLOOD 57378 [place] COUNT 1 MED CTR, MED CTR, COMPLETE ATTN: ATTN: AUTO&AUTO DENE DENE DIFRNTL WBC RADIOLOGI 18150 [place] C 1 MED CTR, MED CTR, EXAMINATI ATTN: ATTN: ON CHEST DENE DENE SINGLE VIEW FRONTAL CT THORAX 29219 [facility] NIKITA 1 RIVER HBP SHADIA W/CONTRAS LLC T MATERIAL CREATINE 41005 [place] KINASE 1 MED CTR, MED CTR, TOTAL ATTN: ATTN: DENE DENE ECG 30414 [place] ROUTINE 1 MED CTR, MED CTR, ECG ATTN: ATTN: W/LEAST DENE DENE 12 LDS TRCG ONLY W/O I&[place] [address] [place] MAGNESIUM 1 MED CTR, MED CTR, ATTN: ATTN: DENE DENE GASES 45376 [place] BLOOD PH 1 MED CTR, MED CTR, DIRECT ATTN: ATTN: FAREED XCPT DENE DENE PULSE OXIMITRY CARBOXYHE 25229 [place] MOGLOBIN 1 MED CTR, MED CTR, QUANTITAT ATTN: ATTN: [place] DENE DENE CREATINE 70017 [place] KINASE MB 1 MED CTR, MED CTR, FRACTION ATTN: ATTN: ONLY DENE DENE FIBRIN 04626 [place] DGRADJ 1 MED CTR, MED CTR, PRODUCTS ATTN: ATTN: D-DIMER DENE DENE QUAL/SEMI JUAN CARLOS CYTP FINE 03190 [place] NDL 1 MEDICAL BRILL YOL ASPIRATE SERV IMMT FOUNDATIO CYTOHIST STD EA EVAL CYTP FINE 82160 [place] NDL 1 MEDICAL BRILL YOL ASPIRATE SERV IMMT FOUNDATIO CYTOHIST STD DX 1ST CYTP EVAL 00593 [place] FINE 1 MEDICAL BRILL YOL NEEDLE SERV ASPIRATE FOUNDATIO INTERP & RE[place] [address] [place] FRIED A GUIDANCE 1 MEDICAL NEEDLE SERV PLACEMENT FOUNDATIO IMG S&I FINE 63454 [place] FRIED A NEEDLE 1 MEDICAL ASPIRATIO SERV N WITH FOUNDATIO IMAGING GUIDANCE RADEX 88838 [facility] ABDOMEN 1 1 MED CTR, MED CTR, ATTN: ATTN: ANTEROPOS DENE DENE TERIOR VIEW RADEX 92081 [facility] ABDOMEN 1 1 MED CTR, MED CTR, ATTN: ATTN: ANTEROPOS DENE DENE TERIOR VIEW INJECTION J2765 [facility] 1 MED CTR, MED CTR, METOCLOPR ATTN: ATTN: AMIDE HCL DENE DENE UP TO 10 MG ESOPHAGOG 13243 [facility] ASTRODUOD 1 MED CTR, MED CTR, ENOSCOPY ATTN: ATTN: TRANSORAL DENE DENE DIAGNOSTI C INJECTION J2250 [facility] 1 MED CTR, MED CTR, MID[place]OLAM ATTN: ATTN: HCL PER DENE DENE 1 MG SIGMOIDOS 64357 [facility] COPY FLX 1 MED CTR, MED CTR, DX ATTN: ATTN: W/COLLJ DENE DENE SPEC BR/WA IF PFRMD COLONOSCO 56684 BRENDA HORN PY FLX DX 1 PHYSICIAN MAXINE W/COLLJ KATHERINE SPEC WHEN PFRMD ECG 97662 [facility] ROUTINE 1 MEDICAL MEETA ECG SPECIALIT W/LEAST Y CL 12 LDS I&[place] [address] [facility] ABDOMEN & 1 RIVER HBP SHADIA [facility] [facility] W/CONTRAS T MATERIAL RADIOLOGI 32175 [place] [facility] C EXAM 1 RIVER HBP SHADIA CHEST 2 LLC VIEWS FRONTAL&[place] [address] [facility] THYROID 1 [facility] Pr[facility]ync [facility] STIMULATI NG HORMONE TSH BLOOD 48044 [facility] COUNT 1 [facility] COMPLETE AUTO&AUTO DIFRNTL WBC COMPREHEN 73584 [facility] SIVE 1 [facility] METABOLIC PANEL CYTP EVAL 60030 [place] COLTEN GALLEGOS FINE 1 MEDICAL NEEDLE SERV ASPIRATE FOUNDATIO INTERP & REPORT FINE 95662 [place] COLTEN GALLEGOS NEEDLE 1 MEDICAL ASPIRATIO SERV N W/O FOUNDATIO IMAGING GUIDANCE LARYNGOSC 17238 BRENDA [place] OPY 1 ENT TAR INDIRECT CLIN[place] [address] [place] UREA 1 MED CTR, MED CTR, NITROGEN ATTN: ATTN: QUANTITAT DENRadha SANCHEZ [place] CT SOFT 87987 [place] TISSUE 1 MED CTR, MED CTR, NECK ATTN: ATTN: W/CONTRAS DANIEL SANCHEZ T MATERIAL CREATININ 35508 [place] E BLOOD 1 MED CTR, MED CTR, ATTN: ATTN: DANIEL SANCHEZ COLLECTIO 21807 [place] N VENOUS 1 MED CTR, MED CTR, BLOOD ATTN: ATTN: VENIPUNCT DANIEL SANCHEZ URE US SOFT 13601 [place] TISSUE 1 MED CTR, MED CTR, HEAD & ATTN: ATTN: NECK REAL DENRadha SANCHEZ TIME IMGE DOCM LIPID 71800 [facility] PANEL 1 [facility] COMPREHEN 78531 [facility] SIVE 1 [facility] METABOLIC PANEL BLOOD 77437 [facility] COUNT 1 [facility] COMPLETE AUTO&[place] [address] [facility] THYROID 1 [facility] STIMULATI NG HORMONE TSH MRI 21217 NEURODIAG [place] SPINAL 1 NOSTICPSC ROL CANAL CERVICAL W/O CONTRAST MATRL MRI 06773 [facility]IAG [place] SPINAL 1 NOSTICPSC ROL CANAL LUMBAR W/O CONTRAST MATERIAL MRI ANY 11496 [facility]UR[facility]IAG [place] JT UPPER 1 NOSTICPSC ROL EXTREMITY W/O CONTRAST MATRL WALKER E0143 GEO GEO FOLDING 1 CO MEDI CO MEDI [facility] E/FIXED HEIGHT HEPATIC 48362 [facility] FUNCTION 0 [facility] Pr[facility]ync [facility] PANEL THERAPEUT 92394 [place] IC PX 1/> 0 MED CTR, MED CTR, AREAS ATTN: ATTN: EACH 15 DENE DENE MIN EXERCISES THERAPEUT 40880 [place] IC PX 1/> 0 MED CTR, MED CTR, AREAS ATTN: ATTN: EACH 15 DENE DENE MIN EXERCISES E-STIM G0283 [place] 1/> AREAS 0 MED CTR, MED CTR, OTH THAN ATTN: ATTN: WND CARE DENE DENE PART TX PLAN E-STIM G0283 [place] 1/> AREAS 0 MED CTR MED CTR OTH THAN WND CARE PART TX PLAN THERAPEUT 70171 [place] IC PX 1/> 0 MED CTR MED CTR AREAS EACH 15 MIN EXERCISES THERAPEUT 30169 [place] IC PX 1/> 0 MED CTR MED CTR AREAS EACH 15 MIN EXERCISES E-STIM G0283 [place] 1/> AREAS 0 MED CTR MED CTR OTH THAN WND CARE PART TX PLAN E-STIM G0283 [place] 1/> AREAS 0 MED CTR MED CTR OTH THAN WND CARE PART TX PLAN THERAPEUT 90553 [place] IC PX 1/> 0 MED CTR MED CTR AREAS EACH 15 MIN EXERCISES PHYSICAL 43354 [place] THERAPY 0 MED CTR MED CTR RE-EVALUA TION THERAPEUT 26216 [place] IC PX 1/> 0 MED CTR MED CTR AREAS EACH 15 MIN EXERCISES E-STIM G0283 [place] 1/> AREAS 0 MED CTR MED CTR OTH THAN WND CARE PART TX PLAN RADEX 32874 [place] SPINE 0 MED CTR MED CTR LUMBOSACR AL 2/3 VIEWS RADEX 90688 [place] SPINE 0 MED CTR MED CTR THORACIC 3 VIEWS E-STIM G0283 [place] 1/> AREAS 0 MED CTR MED CTR OTH THAN WND CARE PART TX PLAN THERAPEUT 89787 [place] IC PX 1/> 0 MED CTR MED CTR AREAS EACH 15 MIN EXERCISES THERAPEUT 38756 [place] IC PX 1/> 0 MED CTR MED CTR AREAS EACH 15 MIN EXERCISES E-STIM G0283 [place] 1/> AREAS 0 MED CTR MED CTR OTH THAN WND CARE PART TX PLAN RADIOLOGI 40716 [place] C 0 MED CTR MED CTR EXAMINATI ON CHEST SINGLE VIEW FRONTAL ECG 22039 [facility] ROUTINE 0 PAB PAB ECG W/LEAST 12 LDS W/I&R E-STIM G0283 [place] 1/> AREAS 0 MED CTR MED CTR OTH THAN WND CARE PART TX PLAN THERAPEUT 87705 [place] IC PX 1/> 0 MED CTR MED CTR AREAS EACH 15 MIN EXERCISES THERAPEUT 46749 [place] IC PX 1/> 0 MED CTR MED CTR AREAS EACH 15 MIN EXERCISES E-STIM G0283 [place] 1/> AREAS 0 MED CTR MED CTR OTH THAN WND CARE PART TX PLAN E-STIM G0283 [place] 1/> AREAS 0 MED CTR MED CTR OTH THAN WND CARE PART TX PLAN THERAPEUT 37319 [place] IC PX 1/> 0 MED CTR MED CTR AREAS EACH 15 MIN EXERCISES THERAPEUT 48245 [place] IC PX 1/> 0 MED CTR MED CTR AREAS EACH 15 MIN EXERCISES E-STIM G0283 [place] 1/> AREAS 0 MED CTR MED CTR OTH THAN WND CARE PART TX PLAN E-STIM G0283 [place] 1/> AREAS 0 MED CTR MED CTR OTH THAN WND CARE PART TX PLAN THERAPEUT 19175 [place]X 1/> 0 MED CTR MED CTR AREAS EACH 15 MIN EXERCISES THERAPEUT 79664 [place] PX 1/> 0 MED CTR MED CTR AREAS EACH 15 MIN EXERCISES PHYSICAL 63003 [place] THERAPY 0 MED CTR MED CTR RE-EVALUA TION E-STIM G0283 [place] 1/> AREAS 0 MED CTR MED CTR OTH THAN WND CARE PART TX PLAN E-STIM G0283 [facility] 1/> AREAS 0 MED CTR MED CTR OTH THAN WND CARE PART TX PLAN THERAPEUT 34612 [facility] IC PX 1/> 0 MED CTR MED [facility] AREAS EACH 15 MIN EXERCISES E-STIM G0283 [facility] 1/> AREAS 0 MED CTR MED [facility] [place] [address] [facility] THYROID 0 [employer] STIMULATI NG HORMONE TSH THERAPEUT 75586 [facility] IC PX 1/> 0 [facility] AREAS EACH 15 MIN EXERCISES BLOOD 22364 [facility] COUNT 0 [employer] COMPLETE AUTO&AUTO DIFRNTL WBC COMPREHEN 51737 [facility] SIVE 0 [employer] METABOLIC PANEL THERAPEUT 19876 [facility] IC PX 1/> 0 MED CTR MED [facility] AREAS EACH 15 MIN EXERCISES E-STIM G0283 [facility] 1/> AREAS 0 MED CTR MED CTR OTH THAN WND CARE PART TX PLAN E-STIM G0283 [facility] 1/> AREAS 0 MED CTR MED CTR OTH THAN WND CARE PART TX PLAN THERAPEUT 59781 [facility] IC PX 1/> 0 MED CTR [facility] AREAS EACH 15 MIN EXERCISES URINLS 86278 [facility] E[facility] DIP 0 PAB PAB STICK/TAB LET REAGNT NON-AUTO MICRSCPY CULTURE 10734 [facility] BACTERIAL 0 [employer] QUANTTATI VE COLONY COUNT URINE CULTURE 74308 [facility] BCT 0 [employer] ISOL&PRSM PTV ID ISOLATE EA URINE STANDARD K0001 GEO DUFFY 0 CO [facility] THERAPEUT 65973 [facility] IC PX 1/> 0 MED CTR MED [facility] AREAS EACH 15 MIN EXERCISES E-STIM G0283 [facility] 1/> AREAS 0 MED CTR MED CTR OTH THAN WND CARE PART TX PLAN E-STIM G0283 [facility] 1/> AREAS 0 MED CTR MED CTR OTH THAN WND CARE PART TX PLAN THERAPEUT 53727 [facility] 1/> 0 MED CTR MED CTR AREAS EACH 15 MIN EXERCISES THERAPEUT 44259 [facility] 1/> 0 MED [facility] MED [facility] AREAS EACH 15 MIN EXERCISES E-STIM G0283 [facility] 1/> AREAS 0 MED [facility] MED CTR OTH THAN WND CARE PART TX PLAN E-STIM G0283 [facility] 1/> AREAS 0 [facility] OTH THAN WND CARE PART TX PLAN PHYSICAL 01789 [facility] THERAPY 0 MED CTR MED CTR EVALUATIO N MRI 58584 NEURODIAG LUTZ TRA SPINAL 0 NOSTICPSC CANAL LUMBAR W/O CONTRAST MATERIAL URINLS 63703 EHSAN EHSAN DIP 0 PAB PAB STICK/[place] [address] [facility] PAMPATI ABDOMINAL 0 [place] [facility] REAL IMAGING TIME CENT W/IMAGE LIMITED CULTURE 39031 [facility] BACTERIAL 0 [employer] INC [employer] INC QUANTTATI VE COLONY COUNT URINE CULTURE 32077 [facility] BCT 0 [place] [facility] [employer] [facility] ISOL&PRSM PTV ID ISOLATE EA URINE STANDARD K0001 GEO GEO MetabarCHAI 0 CO [facility] URINLS 36596 EHSAN EHSAN DIP 0 PAB PAB STICK/TAB LET REAGNT NON-AUTO MICRSCPY RADEX 91548 BREATHIT HOLT A SPINE 0 [facility] THORACIC IMAGING MINIMUM 4 CENT VIEWS RADEX 79351 BREATH[facility] HOL[facility] A SPINE 0 [facility] LUMBOSACR IMAGING AL CENT MINIMUM 4 VIEWS CULTURE 00545 [facility] BCT 0 [place] [facility] [employer] INC ISOL&PRSM PTV ID ISOLATE EA URINE CULTURE 76977 [facility] BACTERIAL 0 [employer] INC QUANTTATI VE COLONY COUNT URINE STANDARD K0001 GEO GEO WHEELCHAI 0 [facility] STANDARD K0001 GEO GEO WHEELCHAI 0 [facility] STANDARD K0001 GEO GEO WHEELCHAI 0 CO MEDI CO [facility] STANDARD K0001 GEO GEO WHEELCHAI 0 CO [facility] STANDARD K0001 GEO GEO WHEELCHAI 0 CO MED[facility] CO [facility] STANDARD K0001 GEO GEO WHEELCHAI 0 CO MEDI CO [facility] STANDARD K0001 GEO GEO WHEELCHAI 9 CO MEDI CO [facility] STANDARD K0001 GEO GEO WHEELCHAI 9 CO MEDI CO [facility] STANDARD K0001 GEO GEO WHEELCHAI 9 CO MEDI CO [facility] STANDARD K0001 GEO GEO WHEELCHAI 9 CO MEDI [facility] HOM[facility]ARE COMPREHEN 26473 [facility] SIVE 9 [facility] METABOLIC PANEL BLOOD 57024 [facility] COUNT 9 [facility] COMPLETE AUTO&[place] [address] [facility] THYROID 9 [facility] STIMULATI NG HORMONE TSH LIPID 13230 [facility] PANEL 9 [facility] MRI 54476 GRAM HOLT, A SPINAL 9 RESOURCES R CANAL CERVICAL W/O CONTRAST MATRL RADEX 68730 [facility] SPINE 1 8 MED CTR MED CTR VIEW SPECIFY LEVEL RADEX 64817 [facility] FINGR 8 MED CTR MED CTR MINIMUM 2 VIEWS INCI 8605 [facility] W/REMOVAL 8 MED CTR MED CTR FB/DEVICE FROM SKIN & SUBQ TISSUE GENERAL 33248 [facility] HEALTH 8 MED CTR MED CTR PANEL RADEX 77649 BREATHIT PAMPATI, HIPS 8 [facility] BILATERAL IMAGING 2 VIEWS CENTER ANTEROPOS T PELVIS ECG 62026 [facility] [place] ROUTINE 8 MED CTR MED CTR ECG W/LEAST 12 LDS TRCG ONLY W/O I&R CREATINE 46877 [facility] [place] KINASE 8 MED CTR MED CTR TOTAL CREATINE 14208 [facility] [place] K[place] MB 8 MED CTR MED CTR FRACTION ONLY BLOOD 66955 [facility] [place] COUNT 8 MED CTR MED CTR COMPLETE AUTO&AUTO DIFRNTL WBC COMPREHEN 83793 [facility] [place] [facility] [place] SIVE 8 MED CTR MED CTR METABOLIC PANEL COLLECTIO 77467 [facility] [place] N VENOUS 8 MED CTR MED CTR BLOOD VENIPUNCT URE ECHO 61111 APPALACHI PALIWAL, TRANSTHOR 8 AN HEART VIDHU H C R-T 2D CENTER W/WO M-MODE REC F-UP/LMTD DOP 98060 APPAL[facility] PALIWAL, ECHOCARD 8 AN [facility] COLOR CENTER FLOW VELOCITY MAPPING DOP 17625 [facility] ECHOCARD 8 AN HEART VIDHU H PULSE CENTER WAVE W/SPECTRA L F-UP/LMTD STD OBSERVATI 14381 [facility] RICE, ON CARE 8 FAMILY CASA Y DISCHARGE PRACTICE CTR MANAGEMEN T Encounters Encounter Start End Date Code Location Performer Type Date [facility] T[facility] 6 6 [facility] EMERGENCY 82609 TAVO 6 6 [facility] T VISIT LOW/MODER SEVERITY EMERGENCY 98562 HARRISON LERMA 6 6 PHYSICIAN FOR DEPARTMEN [facility] T VISIT HIGH/URGE NT SEVERITY HOSPITAL TAVO - 6 6 [facility] OFFICE 83939 [place] LUZ MARINA [facility] 6 6 MEDICAL ABD T VISIT 5 SERV MINUTES FOUNDATIO [facility] UNIVERSIT - 6 6 Y [facility] TAV[facility] 6 6 [facility]PAT[facility] T OFF[facility] 13105 Eduardo Karen [facility] 6 6 GAYATRI ART T VISIT PSC 15 MINUTES OFFICE 01104 [facility] 5 5 MEDICAL T VISIT SERV 10 FOUNDATIO MINUTES [facility] UNIVERSIT [facility] [address] [facility] T OFFICE 34832 LESLIE MOE [facility] 5 5 MEDICAL T VISIT SERV 15 FOUNDATIO MINUTES [facility] UNIVERSIT [facility] 5 5 Y [facility] UNIVERSIT - 4 4 Y [facility] INPATIENT 4 4 [facility] UNIVERSIT [facility] 4 4 Y [facility] INPATIENT 4 4 [facility] CARDINAL - 4 4 [facility] UNIVERSIT [facility] [address] [facility] T OFFICE 83555 LESLIE MOE [facility] 4 4 MEDICAL T NEW 30 SERV MINUTES FOUNDATIO OFFICE 47630 [facility] 4 4 MEDICAL RAL T VISIT SERV 25 FOUNDATIO MINUTES OFFICE 87208 LESLIE CANDELARIO [facility] 4 4 MEDICAL PASHA T VISIT SERV 25 FOUNDATIO MINUTES OFFICE 68500 LESLIE LALA [facility] 4 4 MEDICAL T VISIT SERV 15 FOUNDATIO MINUTES HOSPITAL TAVO - 4 4 [facility] 12836 LESLIE GORDON DEPT 4 4 MEDICAL MAT VISIT SERV HIGH FOUNDATIO SEVERITY& THREAT [facility] UNIVERSIT - 4 4 Y [facility] UNIVERSIT - OTHER 4 4 Y [facility] HOSPITAL UNIVERSIT [facility] 4 4 Y [facility] UNIVERSIT - 4 4 Y [facility] UNIVERSIT - [address] [facility] T OFFICE 46427 LESLIE JOHNSON OUTPATIEN 3 3 MEDICAL ELSA T NEW 30 SERV MINUTES FOUNDATIO EMERGENCY 11195 [place] FARHAT DEPT 3 3 MEDICAL PAMELA VISIT SERV HIGH FOUNDATIO SEVERITY& THREAT [facility] UNIVERSIT - [address] [facility] T EMERGENCY 79943 UNIVERSIT 3 3 Y [facility] T VISIT HIGH/URGE NT SEVERITY OFFICE 11851 [place] OUTPATIEN 3 3 MEDICAL JR DAMIAN T NEW 20 SERV MINUTES [facility] UNIVERSIT - [address] [facility] T OFFICE 50699 LESLIE LEDEZMARI [facility] 3 3 MEDICAL ABD T VISIT SERV 25 FOUNDATIO MINUTES OFFICE 10602 [facility] 3 3 Y T VISIT 5 [facility] TAVO - 3 3 [facility] T Emergency RAYSHAWN Jain MD (ER) 3 18:49 3 20:35 [facility] EMERGENCY 52789 JAMES SMART DEPT 3 3 EMERGENCY VISIT SERVICES HIGH SEVERITY& THREAT REPLACED BY [facility] EMERGENCY 09474 TAVO 3 3 [facility] T VISIT LOW/MODER SEVERITY [facility] TAVO - 3 3 [facility] T OFFICE 16431 [facility] 3 3 Y T VISIT 5 [facility] UNIVERSIT - [address] [facility] T OFFICE 72459 [place] ALMARYARI OUTPATIEN 3 3 MEDICAL ABD T VISIT SERV 25 FOUNDATIO MINUTES OFFICE 50316 UN[facility]IT [facility] 3 3 Y T VISIT HOSPITAL 15 MINUTES HOSPITAL UNIVERSIT - 3 3 Y [facility] UNIVERSIT - [address] [facility] T OFFICE 17684 Eduardo BUNCH OUTPATISHERYL 2 2 GAYATRI ART T VISIT PSC 15 MINUTES EMERGENCY 46685 JAMES SMART DEPT 2 2 EMERGENCY VISIT SERVICES HIGH SEVERITY& THREAT [facility] TAVO - 2 2 [facility] OUT[facility]IEN INC T EMERGENCY 32289 TAVO 2 2 [facility] T VISIT MODERATE SEVERITY OFFICE 37164 Eduardo BUNCH OUTPATISHERYL 2 2 GAYATRI ART T VISIT PSC 15 MINUTES OFFICE 51348 LESLIE RAZA OUTPATIEN 2 2 MEDICAL ABD T VISIT SERV 15 FOUNDATIO MINUTES OFFICE 43971 [place] BIANCA OUTPATIEN 2 2 MEDICAL LEEANN T VISIT SERV 15 FOUNDATIO MINUTES [facility] UNIVERSIT - [address] [facility] T OFFICE 55375 [place] BIAN[place] OUTPATIEN 2 2 MEDICAL LEEANN T VISIT SERV 15 FOUNDATIO MINUTES OFFICE 40578 [place] ALHAJERI OUTPATIEN 2 2 MEDICAL ABD T VISIT SERV 15 FOUNDATIO MINUTES OFFICE 16836 Eduardo AGGARWAL 2 2 GAYATRI ART T NEW 20 PSC MINUTES HOSPITAL UNIVERSIT - 2 2 Y [facility] UNIVERSIT - [address] [facility] T OFFICE 31597 LESLIE RAZA OUTPATIEN 2 2 MEDICAL ABD T NEW 45 SERV MINUTES [facility] 38509 LESLIE ALEMANO [facility] 2 2 MEDICAL LEEANN T VISIT SERV 15 FOUNDATIO MINUTES OFFICE 64075 [place] BIANCA [facility] 2 2 MEDICAL LEEANN T VISIT SERV 25 FOUNDATIO MINUTES OFFICE 33844 [facility] 1 1 NEUMANNS PAB T VISIT EXTENDED 25 H MINUTES [facility] 1 1 [facility] MEDICAL OFF[facility] 28118 [facility] 1 1 NEUMANNS PAB T VISIT EXTENDED 15 H MINUTES OFFICE 27572 [facility] 1 1 NEUMANNS PAB T VISIT EXTENDED 15 H MINUTES OFFICE 02904 [facility] 1 1 NEUMANNS PAB T VISIT EXTENDED 25 H MINUTES OFFICE 55414 [facility] 1 1 NEUMANNS PAB T VISIT EXTENDED 15 H MINUTES OFFICE 41419 [facility] 1 1 NEUMANNS PAB T VISIT EXTENDED 25 H MINUTES HOSPITAL [facility]ERSIT - 1 [address] [facility] 1 [address] [facility] 27616 [facility]ART & LEIDY DUANE [facility] 1 1 VASCULAR T VISIT SPECIALIS 25 TS MINUTES HOSPITAL [place] 1 1 [facility], [facility] ATTN: T DENE OFFICE 05299 LESLIE GOMEZ [facility] 1 1 MEDICAL THO T NEW 45 SERV MINUTES FOUNDATIO OFFICE 66364 [facility]IE VAL[facility]ZUELA [facility] 1 1 MEDICAL LEEANN T VISIT SERV 40 FOUNDATIO MINUTES EMERGENCY 34083 [place] 1 1 [facility]IVER [facility] T VISIT MODERATE SEVERITY [facility] [place] - 1 1 [facility] CTR, OUTPATIEN ATTN: T [place] EMERGENCY 90079 [place] 1 1 [facility] CTR, DEPARTMEN ATTN: T VISIT DENE HIGH/URGE NT SEVERITY [facility]OSPITAL [place] - 1 1 [facility] CTR, OUTPATIEN ATTN: T [facility] [place] 1 1 MED CTR, OUTPATIEN ATTN: [facility] [place] 1 1 MED CTR, OUTPATIEN ATTN: T DENE OFFICE 83526 BRENDA ERNSPIKER OUTPATIEN 1 1 PHYSICIAN MAXINE T VISIT KATHERINE 10 MINUTES OFFICE 98490 EHSAN EHSAN OUTPATIEN 1 1 PAB PAB T VISIT 15 MINUTES OFFICE 76280 LESLIE BOOKERBIANCA OUTPATIEN 1 1 MEDICAL LEEANN T NEW 45 SERV MINUTES FOUNDATIO OFFICE 48112 BRENDA PAYTONROBERWI OUTPATIEN 1 1 ENT TAR T NEW 45 CLINIC MINUTES PSC OFFICE 84638 BRENDA CHOWDHURYSPIKER OUTPATIEN 1 1 PHYSICIAN MAXINE T VISIT KATHERINE 10 MINUTES [facility]OSP[facility] [place] 1 1 [facility], OUTPATIEN ATTN: T DENE OFFICE 11474 BRENDA ERNSPIKER OUTPATIEN 1 1 PHYSICIAN MAXINE T NEW 20 KATHERINE MINUTES OFFICE 92855 EHSAN EHSAN OUTPATIEN 1 1 PAB PAB T VISIT 25 MINUTES OFFICE 34475 EHSAN EHSAN OUTPATIEN 1 1 PAB PAB T VISIT 25 MINUTES OFFICE 09407 EHSAN EHSAN OUTPATIEN 1 1 PAB PAB T VISIT 25 MINUTES [facility]OSPITAL [place] 0 0 [facility], OUTPATIEN ATTN: T [facility] OFFICE 80067 EHSAN EHSAN OUTPATIEN 0 0 PAB PAB T VISIT 25 MINUTES EMERGENCY 25168 [place] 0 0 MED CTR, DEPARTMEN ATTN: T VISIT [facility] MODERATE SEVERITY [facility] [place] - 0 0 MED CTR, OUTPATIEN ATTN: T [facility] [place] - 0 0 MED CTR OUTPATIEN T OFFICE 32961 EHSAN EHSAN OUTPATIEN 0 0 PAB PAB T VISIT 25 MINUTES [facility]OSP[facility] [place] 0 0 [facility] T [facility] [place] [facility] 0 0 [facility] OUTPATIEN T OFFICE 43958 EHSAN EHSAN OUTPATIEN 0 0 PAB PAB T VISIT 25 MINUTES [facility] [place] 0 0 MED CTR OUTPATIEN T OFFICE 83995 EHSAN EHSAN OUTPATIEN 0 0 PAB PAB T VISIT 15 MINUTES OFFICE 42048 [facility]TE [facility] OUTPATIEN 0 0 [place] T NEW 30 CLINIC MINUTES [facility] [place] - 0 0 MED CTR OUTPATIEN T OFFICE 30022 EHSAN EHSAN OUTPATIEN 0 0 PAB PAB T VISIT 15 MINUTES OFFICE 15814 EHSAN EHSAN OUTPATIEN 0 0 PAB PAB T VISIT 25 MINUTES [facility] [place] [facility] [place] 0 0 MED CTR OUTPATIEN T OFFICE 38261 EHSAN EHSAN OUTPATIEN 0 0 PAB PAB T VISIT 25 MINUTES OFFICE 68194 EHSAN EHSAN OUTPATIEN 0 0 PAB PAB T VISIT 25 MINUTES OFFICE 97512 EHSAN EHSAN OUTPATIEN 0 0 PAB PAB T VISIT 15 MINUTES OFFICE 13812 EHSAN EHSAN OUTPATIEN 0 0 PAB PAB T VISIT 25 MINUTES OFFICE 89234 EHSAN EHSAN OUTPATIEN 0 0 PAB PAB T VISIT 25 MINUTES OFFICE 81857 EHSAN, EHSAN, OUTPATIEN 9 9 SHAKIRA SHAKIRA T VISIT 15 MINUTES OFFICE 09635 EHSAN, EHSAN, OUTPATIEN 9 9 SHAKIRA SHAKIRA T VISIT 15 MINUTES OFFICE 67366 EHSAN, EHSAN, OUTPATIEN 9 9 SHAKIRA SHAKIRA T VISIT 25 MINUTES OFFICE 44696 EHSAN, EHSAN, OUTPATIEN 9 9 SHAKIRA SHAKIRA T VISIT 15 MINUTES OFFICE 24226 EHSAN, EHSAN, OUTPATIEN 9 9 SHAKIRA SHAKIRA T VISIT 25 MINUTES EMERGENCY 11754 [place] 8 8 MED CTR DEPARTMEN T VISIT MODERATE SEVERITY [facility]OSP[facility] - 8 8 MED CTR OUTPATIEN T EMERGENCY 50735 [facility] 8 8 [facility]GENC[facility] ASIF T VISIT PHYS INC M HIGH/URGE NT SEVERITY EMERGENCY 89383 [facility] 8 8 MED CTR DEPARTMEN T VISIT HIGH/URGE NT SEVERITY [facility]OSPITAL [facility] - 8 8 MED CTR OUTPATIEN T OFFICE 53029 EHSAN, EHSAN, OUTPATIEN 8 8 SHAKIRA SHAKIRA T VISIT 15 MINUTES OFFICE 42481 EHSAN, EHSAN, OUTPATIEN 8 8 SHAKIRA SHAKIRA T VISIT 15 MINUTES OFFICE 65109 TAINA LUTHER 8 8 [facility] NEW[facility]ESTAB [facility] PATIENT 40 MIN OFFICE 67495 EHSAN MOSER OUTPATIEN 8 8 SHAKIRA ROSENBERG T VISIT 15 MINUTES EMERGENCY 69351 ROSALINDA DUNN, 8 8 [facility] HIGH/URGE NT SEVERITY
--- OUTSIDE RECORDS SUMMARY | 2017-08-17 04:34 | External Medical Summary Rpt | CCD ---
Author Author , NAHID Organization NAHID Address Unknown Phone [email or web address] Care Team Providers Care Guest Service Team Leader Name Role Phone A Karen MENDIETA MD PSC, A Unavailable Unavailable Karen MENDIETA MD PSC ABORDO MEETA, ABORDO Unavailable Unavailable MEETA ALHAJERI ABD, Unavailable Unavailable ALHAJERI ABD [facility] Unavailable Unavailable MEDICAL, [facility] MEDICAL AYACH SEGUNDO, AYACH SEGUNDO Unavailable Unavailable AYOOB AND, AYOOB AND Unavailable Unavailable BALLERT ELSA, BALLERT Unavailable Unavailable ELSA ERWIN FRA, ERWIN Unavailable Unavailable FRA BERNERT CHARLOTTE, BERNERT Unavailable Unavailable CHARLOTTE BESSON JULIO C, BESSON Unavailable Unavailable JULIO C NIKITA SHADIA, NIKITA Unavailable Unavailable SHADIA HADLEY ALL, HADLEY ALL Unavailable Unavailable [facility] [facility]ENT [facility]available Unavailable SERVICE, [facility]available Unavailable SERVICE, [facility] SERVICE BRUENING JR FADUMO, Unavailable Unavailable BRUENING JR FADUMO RAEANN RAN, Unavailable Unavailable CALCHERYL RAN [facility] Unavailable Unavailable HOSP, [facility] Unavailable Unavailable CAMPUS, [facility] CELLAROSI - YORBA, Unavailable Unavailable ASIF [...] II ALA, SORTO II Unavailable Unavailable ALA [facility] Unavailable Unavailable INC, [facility] Unavailable Unavailable HOSPITAL P, [facility] Unavailable Unavailable SPECIALISTS, [facility] MONTALVO JULIO C, MONTALVO JULIO C Unavailable Unavailable [facility] Unavailable Unavailable PSC, [facility] Unavailable Unavailable KATHERINE, [facility] KATHERINE BRAYDON SINGH RAL, BRAYDON Unavailable Unavailable JR RAL [facility] Unavailable Unavailable IMAGING ASS, [facility] Unavailable Unavailable LLC, [facility] KILPELA JEA, KILPELA Unavailable Unavailable JEA USHA LEEANN, USHA LEEANN Unavailable Unavailable CLAUDETTE C, CLAUDETTE C Unavailable Unavailable [facility], [facility] Un[facility] Un[facility], [facility], Unavailable Unavailable [facility] [place] [facility], Unavailable Unavailable ATTN: [facility], [facility], ATTN: [facility] Unavailable Unavailable HOLDINGS, [facility] Unavailable Unavailable HOLDINGS, [facility], Unavailable Unavailable [facility], Unavailable Unavailable [facility] LINDSEY KAYLYN, LINDSEY KAYLYN Unavailable Unavailable LUTZ TRA, LUTZ TRA Unavailable Unavailable [facility] Unavailable Unavailable SERVICES, [facility] FARHAT SANTIAGO, FARHAT Unavailable Unavailable [...] NAN TALANOW ROL, TALANOW Unavailable Unavailable ROL LAAL PHI, LALA PHI Unavailable Unavailable HARP RATNA, HARP RATNA Unavailable Unavailable JEANNETTE MAT, JEANNETTE MAT Unavailable Unavailable [facility], Unavailable Unavailable [facility] BIANCA LEEANN, Unavailable Unavailable [facility]ADSHAW WALKER FOR, WALKER Unavailable Unavailable FOR WHAYNE JR THO, WHAYNE Unavailable Unavailable JR THO Purpose Continuity of Care Document - 12-18-2007 through 2016 Problems Code Diagnosis DOS Provider Status [id number] UNS OPEN 09-03-2016 [facility]SO WOUND UNS [facility] INITIAL ENCOUNTER J449 CHRONIC 08-26-2016 [facility] P DISEASE UNS [id number] PAIN IN 08-26-2016 [facility] [place] R05 COUGH 08-26-2016 [facility] R0602 SHORTNESS 08-26-2016 [place] [facility] [id number] UNS INJURY 08-26-2016 [facility] ENCOUNTER [id number] UNSPECIFIED 08-26-2016 [facility] P ENCOUNTER Z720 TOBACCO USE 08-26-2016 [facility] P I671 CEREBRAL 05-28-2016 [facility] NONRUPTURED [facility] I739 PERIPHERAL 05-28-2016 [facility] DISEASE [facility] UNSPECIFIED H538 OTHER 05-23-2016 [facility] DISTURBANCE [facility] S H9313 TINNITUS 05-23-2016 [facility]ILATERAL [facility] R51 HEADACHE 05-23-2016 [facility] [id number] PRIMARY 05-07-2016 [facility]STEOARTH[facility] T[facility] RIGHT [facility] PSC SHOULDER [id number] OTHER 05-07-2016 [facility] SYNOVITIS L RE[facility] AND ASS[facility] PSC TENOSYNOVIT IS RIGHT SHOULDER [id number] PAIN IN 04-12-2016 [place] [facility] 05026 OSTEOARTHRO 06-14-2015 [facility] UNSPEC SERV GEN/LOC FOUNDATION PELV REGION&THIG H 81733 UNSPECIFIED 06-14-2015 [facility] ARTHROPATHY [facility] OTHER SPECIFIED SITES V4364 HIP JOINT 06-14-2015 [facility] BY OTHER MEANS 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 12-07-2014 [facility] 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 V5481 AFTERCARE 12-07-2014 [facility] FOLLOWING [facility] JOINT [facility] REPLACEMENT 71915 PRESSURE 11-26-2014 [facility] UNSPECIFIED MEDICAL SITE EQUIPME 7209 UNSPECIFIED 11-26-2014 [facility] INFLAMMATOR MEDICAL Y EQUIPME SPONDYLOPAT HY 4373 CEREBRAL 09-20-2014 [facility]EURYS[facility], SERV NONRUPTURED FOUNDATION V1259 PERS HX, 09-20-2014 [facility] DISEASES OF CIRCULATORY SYSTEM V6709 FOLLOW-UP 09-20-2014 [facility] FOLLOWING OTHER SURGERY 5990 URINARY 09-13-2014 [facility] INFECTION LA SITE NOT SPECIFIED 2858 OTHER 08-03-2014 [facility] SPECIFIED HEALTH ANEMIAS CAMPUS 70139 OTHER 08-03-2014 [facility] CHRONIC HEALTH PAIN CAMPUS 496 CHRONIC 08-03-2014 [facility] AIRWAY HEALTH OBSTRUCTION CAMPUS NEC 69590 MUSCLE 08-03-2014 [facility] WEAKNESS HEALTH (GENERALIZE CAMPUS D) 7812 ABNORMALITY 08-03-2014 [facility] 61305 UNSPECIFIED 08-03-2014 [facility] HEALTH OF URINE CAMPUS 55135 UNSPECIFIED 08-03-2014 [facility] URINARY [facility] E 93422 OTH 07-28-2014 A Karen DELGADO MD PSC NS DUE INTERNAL JOINT PROSTHESIS 83156 PAIN IN 07-20-2014 [facility] PELVIC REGION AND THIGH 89833 UNSPECIFIED 07-17-2014 [facility] ARTHROPATHY [facility] PELVIC REGION AND THIGH 11816 NONTRAUMATI 07-17-2014 [place] [facility] RUPTURE SERV OF TENDONS FOUNDAT[facility] OF BICEPS 7993 UNSPECIFIED 07-17-2014 [place] [facility] DEBILITY [facility] 2859 UNSPECIFIED 07-14-2014 [place] [facility] ANEMIA [facility] 7823 EDEMA 07-14-2014 [facility] V4365 KNEE JOINT 07-14-2014 [facility]PLAC[facility] BY OTHER FOUNDAT[facility] MEANS 3384 CHRONIC 07-13-2014 [facility] [place] [facility] SYNDROME [facility] 52850 UNSPECIFIED 07-13-2014 [facility] CONSTIPATIO FOUNDATIO N 47983 PRESSURE 07-09-2014 [place] [facility] BUTTOCK [facility] 64892 PRESSURE 07-09-2014 [facility] STAGE SERV II [facility]OUNDAT[facility] 58918 GENERALIZED 07-09-2014 [facility] [facility] 7292 UNSPECIFIED 07-08-2014 [place] [facility] NEURALGIA SERV NEURITIS FOUNDAT[facility] AND RADICULITIS 1123 CANDIDIASIS 07-03-2014 [facility] 74063 OTHER 07-03-2014 [place] [facility] SPECIFIED SERV ERYTHEMATOU FOUNDATIO S CONDITION OTHER 48482 PRESSURE 07-03-2014 [facility] LOWER SERV BACK [facility]OUND[facility] 86365 PRESSURE 07-03-2014 [facility] STAGE SERV I [facility]OUNDATIO 7140 RHEUMATOID 07-03-2014 [place] [facility]THRITIS SERV [facility] 7820 DISTURBANCE 07-03-2014 [facility] V1302 PERSONAL 07-03-2014 [facility] UR[facility]ARY HOS[facility] TRACT INFECTION V5789 OTHER 07-03-2014 [facility] SPECIFIED [facility]HABIL[facility]AT [facility] ION PROCEDURE OTHER 96605 PRIMARY LOC 06-30-2014 [facility] OSTEOARTHRO FOUNDATIO SIS PELVIC REGION&THIG H 56387 CHEST PAIN 06-30-2014 [place] [facility] UNSPECIFIED SERV F[facility] V4589 OTHER 06-30-2014 [place] [facility] POSTSURGICA SERV L STATUS [facility]OUNDAT[facility] OTHER V5881 FITTING AND 06-30-2014 [place] [facility] OF [facility] VASCULAR CATHETER 2102 BENIGN 06-28-2014 [place] [facility] NEOPLAS[place] OF SERV MAJOR FOUNDATION SALIVARY GLANDS 7840 HEADACHE 06-28-2014 [facility] 97724 OTHER 06-28-2014 [place] [facility] DYSPNEA AND SERV [facility] RESPIRATORY ABNORMALITI ES 7295 PAIN IN 06-24-2014 [place] [facility] SOFT [facility] TISSUES OF FOUNDATION LIMB 24545 SHORTNESS 06-24-2014 [place] [facility] BREATH SERV [facility] 51061 OTHER 06-24-2014 [place] [facility] NONSPECIFIC SERV ABNORMAL [facility] FINDING OF LUNG FIELD 7881 DYSURIA 06-16-2014 [facility] 4329 UNSPECIFIED 06-06-2014 [facility] INTRACRANIA L HEMORRHAGE V5863 LONG-TERM 06-06-2014 [facility] USE OF HOSPITAL ANTIPLATELE T/ANTITHROM BOTIC 47368 UNSPECIFIED 05-03-2014 [place] [facility] TINNITUS SERV [facility] 43725 UNSPECIFIED 05-03-2014 [facility] SENSORINEUR [facility] AL HEARING LOSS 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 70771 SPINAL STEN 04-21-2014 [place] [facility] LUMB [facility] SERV W/O FOUNDATIO NEUROGENIC CLAUDICATIO N 7243 SCIATICA 04-21-2014 [facility] 5967 HEMORRHAGE 01-03-2014 [place] [...] [place] [facility] DISORDER [facility] OF BLADDER FOUNDAT[facility] 33284 HEMATURIA 01-02-2014 [place] [facility] UNSPECIFIED SERV [facility] 6238 OTHER 01-02-2014 [facility] SPECIFIED [facility]ANCE NONINFLAMMA SERVICE TORY DISORDER VAGINA 6259 UNSPEC 01-02-2014 [place] [facility] SYMPTOM SERV ASSOC [facility] W/FEMALE GENITAL ORGANS 15752 ABDOMINAL 01-02-2014 [facility] PAIN, AMBULANCE UNSPECIFIED SERVICE SITE 5952 OTHER 12-16-2013 [place] [facility] CHRONIC [facility] CYSTITIS [facility] 5959 UNSPECIFIED 12-16-2013 [place] [facility] CYSTITIS [facility] 93982 OTHER 12-16-2013 [place] [facility] SPECIFIED SERV DISORDERS FOUNDATIO OF BLADDER 49225 GROSS 12-16-2013 [facility] HEMATURIA SERVICES 4292 UNSPECIFIED 12-13-2013 [facility] CARDIOVASCU LAR DISEASE V7283 OTHER 12-13-2013 [facility] PRE-OPERATI VE EXAMINATION V7284 UNSPECIFIED 12-13-2013 [facility] PRE-OPERATI FOUNDATION VE EXAMINATION 6256 FEMALE 11-24-2013 [facility] INCONTINENC E 97147 URGE 11-24-2013 [facility]OSP[facility] E 81348 INCONTINENC 11-24-2013 [facility] SENSORY AWARENESS 5539 ABHISHEK UNS 11-15-2013 [facility] S[facility] ABD SERV CAV W/O FOUNDATIO MENTION OBST/GANGRE N 01023 DIVERTICULO 11-15-2013 [facility] SIS OF SERV SMALL FOUNDATIO INTESTINE 88507 DIVERTICULO 11-15-2013 [facility] COLON 31871 CALCU 11-15-2013 [facility] W/O MENTION CHOLECYST/O BST 7935 NONSPECIFIC 11-15-2013 [facility] FINDING RAD & OTH EXAM ORGAN 56620 ANEURYSM OF 11-09-2013 [facility] SPECIFIED ARTERY 93573 OTHER 10-06-2013 [place] [facility] URINARY SERV INCONTINENC FOUNDATIO E 97963 POLYURIA 10-01-2013 [facility] 59973 DEHYDRATION 09-16-2013 [facility] 7226 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 BOTH CERVIX AND UTERUS 66559 MALIHA 08-10-2013 [facility] MIGRAINE SERV NEC W/O FOUNDATIO INTRACT W/O STAT MIGRNOSUS 03535 NUCLEAR 08-10-2013 [facility] SCLEROSIS SERV [facility] 2382 NEOPLASM OF 08-09-2013 [facility] BEHAVIOR OF SKIN 36074 OTHER 08-09-2013 [facility] KERATOSIS V5866 LONG-TERM 07-15-2013 [facility] USE OF [facility]OSPITAL ASPIRIN 2410 NONTOXIC 05-26-2013 [facility] GOITER INC 2409 GOITER, 05-05-2013 [facility] UNSPECIFIED SERV F[facility]ATIO 4371 OTH 05-05-2013 [facility] GENERALIZED SERV ISCHEMIC FOUNDATIO CEREBROVASC ULAR DISEASE 4429 OTHER 05-04-2013 [facility] UNSPECIFIED SITE 2559 UNSPECIFIED 11-19-2012 [facility] OF ADRENAL GLANDS 2558 OTHER 10-05-2012 [facility] DISORDERS OF ADRENAL GLANDS 5718 OTHER 10-05-2012 [facility] NONALCOHOLI C LIVER DISEASE 1120 CANDIDIASIS 09-25-2012 A Karen FABIAN MD [facility] 37280 OSTEOARTHRO 09-14-2012 [facility] UNSPEC EMERGENCY WHETHER SERVICES GEN/LOC UNSPEC SITE 7220 DISPLCMT 09-14-2012 [facility] INTERVERT IMAGING ASS DISC WITHOUT MYELOPATHY 7224 DEGENERATIO 09-14-2012 [facility] OF MEDICAL CERVICAL IMAGING ASS INTERVERTEB RAL DISC 8470 NECK SPRAIN 09-14-2012 [facility] 7821 RASH AND 09-07-2012 A Karen SUAZO MD [facility] NONSPECIFIC SKIN ERUPTION 7842 SWELLING 08-24-2012 [facility] MASS OR SERV LUMP IN FOUNDATIO HEAD AND NECK 683 ACUTE 06-22-2012 [facility] LYMPHADENIT SERV IS FOUNDATIO 7242 LUMBAGO 06-15-2012 Eduardo MENDIETA MD PSC 2469 UNSPECIFIED 05-15-2012 [facility] DISORDER [facility] OF THYROID FOUNDAT[facility] 28510 COR 05-15-2012 [facility] ATHEROSLERO SERV UNSPEC FOUNDATIO TYPE VESSEL [place]/LYNN T 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 OSIS [place] CORONARY ARTERY 4779 ALLERGIC 05-15-2012 [facility] RHINITIS SERV CAUSE F[facility]AT[facility] UNSPECIFIED 5533 DIAPHRAGMAT 05-15-2012 [facility] ALICE W/O HOSPITAL MENTION OBSTRUCTION /GANGREN 7231 CERVICALGIA 05-15-2012 [facility] 13947 DYSPHONIA 05-15-2012 [facility] 7856 ENLARGEMENT 05-15-2012 [facility] NODES 86691 OTHER VOICE 01-27-2012 [facility] AND SERV RESONANCE [facility] DISORDERS 2720 PURE 10-01-2011 [facility] HYPERCHOLES [facility]AGNOSTICS TEROLEMIA 2724 OTHER AND 10-01-2011 [facility] UNSPECIFIED NEUMANNS EXTENDED H HYPERLIPIDE MARJORIE 3559 MONONEURITI 10-01-2011 [facility] S OF NEUMANNS UNSPECIFIED EXTENDED H SITE 4910 SIMPLE 10-01-2011 [facility] CHRONIC NEUMANNS BRONCHITIS EXTENDED H 23268 UNSPECIFIED 10-01-2011 [facility] NEUMANNS ARTHROPATHY EXTENDED H SITE UNSPECIFIED V5861 LONG-TERM 10-01-2011 [facility]CURRENT[facility] USE OF ANTICOAGULA NTS V6759 OTHER 10-01-2011 [facility] FOLLOW-UP [facility]AGNOSTICS EXAMINATION OTHER 4240 MITRAL 09-10-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[facility] DISORDERS MEDICAL 59473 OTHER CHEST 09-10-2011 [facility] MEDICAL 19898 ABDOMINAL 09-10-2011 RADI[facility] PA[facility], SERVICES GENERALIZED 16799 ABDOMINAL 09-10-2011 [facility] OTHER REGIONAL SPECIFIED MEDICAL SITE V641 SURG/OTH 09-10-2011 [facility] PROC NOT REGIONAL DONE MEDICAL BECAUSE CONTRAINDIC ATION 4659 ACUTE URIS 08-27-2011 [facility] OF NEUMANNS UNSPECIFIED EXTENDED H SITE 02644 OTHER 08-05-2011 NEURODIAGNO MALAISE AND STICPSC FATIGUE V5883 ENCOUNTER 06-21-2011 [facility] THERAPEUTIC DRUG MONITORING V7109 OBSERVATION 06-21-2011 [facility] OF OTHER DIAGNOSTICS SUSPECTED MENTAL CONDITION 0539 HERPES 05-23-2011 [facility] NEUMANNS WITHOUT EXTENDED H MENTION OF COMPLICATIO N 7244 THORACIC/JAY 05-23-2011 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 MANAGER VISUAL V5869 LONG-TERM 04-18-2011 [facility] (CURRENT) [place] [facility] USE OF OTHER MEDICATIONS 2278 SHAYNE 04-06-2011 [place] [facility] GLANDS&RELA CIERA STRCT 80116 JAW PAIN 04-06-2011 [place] [facility], ATTN: DANIEL 2374 NEOPLASM 03-27-2011 [facility]AIN SERV BHV FOUNDATIO OTH&UNSPEC ENDOCRN GLANDS 4019 UNSPECIFIED 03-13-2011 [facility], HYPERTENSIO ATTN: DANIEL N 29165 OTHER 03-13-2011 [place] [facility] SPECIFIED [facility], DISORDER OF ATTN: DANIEL INTESTINES 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 5789 UNSPECIFIED 03-07-2011 [facility] HEMORRHAGE PHYSICIAN OF KATHERINE GASTROINTES TINAL TRACT 5781 BLOOD IN 03-04-2011 [facility] STOOL [facility] [facility] 2350 NEOPLASM 02-18-2011 [facility] BEHAVIOR KATHERINE MAJOR SALIV GLANDS 78022 TOX DIFFUSE 02-18-2011 [facility] W/O CLINIC PSC THYROTOX CRISIS/STOR M 4780 HYPERTROPHY 02-18-2011 [facility] OF [facility] PSC TURBINATES 29992 DYSPHAGIA 02-18-2011 [facility] UNSPECIFIED CLINIC PSC 2397 NEOPLSM UNS 02-07-2011 [facility] NATR [facility], ENDOCRN ATTN: DANIEL GLND&OTH PART NERV SYS 7062 SEBACEOUS 02-01-2011 [facility] PAB CYST 38013 EFFUSION OF 12-03-2010 NEUR[facility]IAGNO SHOULDER STICPS JOINT 23988 PAIN IN 12-03-2010 NEURODIAGNO JOINT, [facility] SHOULDER REGION 42889 STIFFNESS 12-03-2010 NEURODIAGNO OF JOINT [facility] SHOULDER REGION 13741 OTHER 11-08-2010 [facility] SPECIFIED MEDI ARTHROPATHY [facility] SITE UNSPECIFIED 90238 LOC 10-04-2010 [facility] MED CTR, S NOT SPEC ATTN: DENE WHETHER PRIM/SEC HAND 83006 OSTEOARTHRO 10-04-2010 [place] SIS UNSPEC [facility] WHETHER [facility] GEN/LOCALIZ ED HAND 96880 SWELLING OF 10-04-2010 [facility] LIMB MED CTR, ATTN: [facility] 9158 OTH&UNSPEC 10-04-2010 [facility] SUP INJURY MED CTR, FINGER ATTN: DEN[facility] WITHOUT MENTION INF 97353 OTHER&UNSPE 09-21-2010 [facility] C DISC MED CTR, DISORDER ATTN: EVERE UNSPEC REGION V571 OTHER 09-21-2010 [facility] PHYSICAL MED CTR, THERAPY ATTN: DENE 7212 THORACIC 09-04-2010 [facility] SPONDYLOSIS MED CTR WITHOUT MYELOPATHY 7241 PAIN IN 09-04-2010 [facility] THORACIC MED CTR SPINE 7245 UNSPECIFIED 09-04-2010 [facility] PAB BACKACHE 69182 PAINFUL 08-25-2010 [facility] RESPIRATION MED CTR 32183 HERPES 08-24-2010 [facility] PAB ZOSTER KERATOCONJU NCTIVITIS V574 ORTHOPTIC 08-21-2010 [facility] TRAINING MED CTR 85412 PAIN IN 07-19-2010 [facility] PAB JOINT, LOWER LEG 46583 GALLSTONE 06-13-2010 [facility] 93990 DISORDER OF 06-06-2010 [facility] UNSPECIFIED CENT 29255 ACUTE 05-17-2009 [facility], LARYNGITIS, SHAKIRA WITHOUT MENTION OF OBSTRUCTIO 7234 BRACHIAL 03-02-2009 [facility], NEURITIS OR SHAKIRA RADICULITIS NOS 9156 FINGER SUP 09-07-2008 [place] [facility] FB W/O CODY MED CTR OPEN WOUND&W/O MENTION INF 97418 NAUSEA 12-19-2007 [facility] Allergies, Adverse Reactions, Alerts [...] 017 K/mm3 ed monocyt 16:40 e count [place] % = 6.0 % 1.7-9.3 complet 017 [...] Procedure DOS Code Location Performer Comment DEBRIDEME 23195 [facility] VO NT OPEN 6 [facility] WOUND 20 INC INC SQ CM/< DEBRIDEME 14225 [facility] VO NT OPEN 6 [facility] WOUND 20 INC INC SQ CM/< PHYSICAL 27451 [facility] VO THERAPY 6 [facility] EVALUATIO INC INC N RADIOLOGI 58243 [facility] ALL C EXAM 6 MEDICAL CHEST 2 IMAGING VIEWS ASS FRONTAL&L ATERAL CREATINE 65845 [facility] VO KINASE MB 6 [facility] FRACTION INC INC ONLY RADIOLOGI 56328 [place] [place] [facility] ALL C 6 MEDICAL EXAMINATI IMAGING ON KNEE 3 ASS VIEWS CREATINE 12918 [facility] VO KINASE 6 [facility] TOTAL INC INC ECG 14304 [facility] VO ROUTINE 6 [facility] ECG INC INC W/LEAST 12 LDS TRCG ONLY W/O I&R COMPREHEN 59389 [facility] SIVE 6 [facility] [place] [address] [facility] VO TROPONIN 6 [facility] QUANTITAT INC INC [place] BLOOD 01006 [facility] VO COUNT 6 [facility] COMPLETE INC INC AUTO&AUTO DIFRNTL WBC ECG 57825 [facility] FABRICIO ROUTINE 6 [facility] W/LEAST P 12 LDS I&R ONLY ANGIOGRAP 15351 [place] [facility] HY 6 MEDICAL ABD EXTREMITY SERV FOUNDATIO UNILATERA N L RS&I 3D 05486 [place] [facility] RENDERING 6 MEDICAL ABD SERV W/INTERP& FOUNDATIO POSTPROC N DIFF WORK STATION ANESTHESI 42900 [place] DORITY A 6 MEDICAL SRI DIAGNOSTI SERV C FOUNDATIO ARTERIOGR N APHY/VENO GRAPH SLCTV 28107 [place] [facility] MARINA CATH 6 MEDICAL ABD CAROTID/I SERV NNOM ART FOUNDATIO ANGIO N INTRCRANL ART CREATININ 49788 [facility] E BLOOD 6 Y [place] [facility] [address] [place] RASLA[place] ANGIOGRAP 6 MEDICAL FLA HY HEAD SERV W/CONTRAS FOUNDATIO T/NONCONT N RAST LOCM Q9967 [facility] [phone] Y Y MG/ML HOSPITAL HOSPITAL IODINE CONCENTRA TION PER ML THERAPEUT 30248 PROFESSIO CROSSFIEL IC PX 1/> 6 [facility]AL [facility] EACH 15 PSC MIN EXERCISES THERAPEUT 74122 PROFESSIO CROSSFIEL IC PX 1/> 6 [facility] EACH 15 PSC MIN EXERCISES PHYSICAL 29927 PROFESSIO CROSSFIEL THERAPY 6 NAL REHAB D SHADIA EVALUATIO ASSOC N PSC RADEX 05527 [facility] ALL SHOULDER 6 MEDICAL 1 VIEW IMAGING ASS RADEX 58245 [facility] VO SHOULDER 6 [facility] COMPLETE INC INC MINIMUM [address] V[address] [facility] HIPS 5 Y Y [facility] 2 VIEWS ANTEROPOS T PELVIS RADEX HIP 32250 LESLIE HOOD 5 MEDICAL FRA UNILATERA SERV L FOUNDATIO COMPLETE N MINIMUM 2 VIEWS RADIOLOGI 73848 LELSIE HOOD C 5 MEDICAL FRA EXAMINATI SERV [...] EQUIPME EQUIPME OVERLY/PA D PUMP GUIDE [id number] [facility] WIRE 4 Y Y H[facility]PITAL [facility] INJECTION J1644 [facility] HEPARIN 4 Y Y SODIUM [facility] PER [address] [facility] IN TIME 4 Y Y HOSPITAL HOSPITAL LOCM Q9967 [facility] [phone] Y Y MG/ML HOSPITAL HOSPITAL IODINE CONCENTRA TION PER ML COMPREHEN 53818 [facility] SIVE 4 Y Y METABOLIC [facility] PANEL INJECTION J0330 [facility] 4 Y Y SUCCINYLC [facility] HOLINE CHLORIDE UP TO 20 MG SLCTV 34059 [place]ER[place] CATH 4 MEDICAL ABD INTRNL SERV CAROTID FOUNDATIO ART ANGIO N INTRCRNL ART CLOSURE C1760 [facility] DEVICE 4 Y Y VASCULAR [facility]PITAL HOSPITAL INTRDUCR/ C1894 [facility] SHEATH 4 Y Y NOT GUID [facility] INTRACARD EP NON-LASR BLOOD 50205 [facility] COUNT 4 Y Y COMPLETE [facility] AUTOMATED INJECTION J3010 [facility] FENTANYL 4 Y Y CITRATE [facility] 0.1 MG ANESTHESI 92179 [place] RAMAIAH A 4 MEDICAL DIN CAROTID/C SERV ORONARY FOUNDATIO THER N IVNTL RAD INFUSION J7030 [facility] NORMAL 4 Y Y SALINE [facility] SOLUTION 1000 CC SLCTV 01040 [place]HA[place]ER[place] CATH 4 MEDICAL ABD CAROTID/I SERV NNOM ART FOUNDATIO ANGIO N INTRCRANL ART 3D [address] [place]ER[place] 4 MEDICAL MEDICAL SERV SERV W/INTERP& FOUNDATIO FOUNDATIO POSTPROC N N DIFF WORK STATION [place] VASC [address]85 [facility] ACCESS 4 Y Y SITS VSL [facility] PATENCY NDL ENTRY PLCMT [id number] [facility] OCCL DEVC 4 Y Y [facility] IRENE/ART POST SURG/INTR VNL PROC CULTURE 91186 COMBINED COMBINED BACTERIAL 4 PHYSICIAN PHYSICIAN S LA S LA QUANTTATI VE COLONY COUNT URINE URNLS DIP 81223 COMBINED COMBINED 4 PHYSICIAN PHYSICIAN STICK/TAB S LA S LA LET REAGENT AUTO MICROSCOP Y SUSCEPTIB 44621 COMBINED COMBINED ILITY 4 PHYSICIAN PHYSICIAN STUDY [...] WALK-PAIR EQUIPME EQUIPME SEAT ATTCH WALK SBSQ 34891 A C [facility] PSC CARE/DAY E/M STABLE 10 MIN SBSQ 07618 A C [facility] 4 [facility] PSC CARE/DAY E/M STABLE [address] [facility] 4 Y Y UNILATERA [facility] HOSPITAL L 1 VIEW RADIOLOGI 76964 [facility] 4 Y Y [facility] ON PELVIS 11/04 [facility] 10673 [facility] 4 MEDICAL NAN DAY SERV MANAGEMEN FOUNDATIO T 30 MIN/< SBSQ 52749 [place] [address] MEDICAL [place] CARE/DAY SERV 25 FOUNDATIO MINUTES SBSQ 09495 [place] [address] MEDICAL NAN CARE/DAY SERV 25 FOUNDATIO MINUTES SBSQ 98306 [place] [address] MEDICAL NAN CARE/DAY SERV 25 FOUNDATIO MINUTES SBSQ 02116 [place] [address] MEDICAL NAN CARE/DAY SERV 25 FOUNDATIO MINUTES SBSQ 36759 [place] [address] MEDICAL NAN CARE/DAY SERV 25 FOUNDATIO MINUTES SBSQ 88393 [place] [address] MEDICAL NAN CARE/DAY SERV 25 FOUNDATIO MINUTES SBSQ 66363 [place] [address] MEDICAL MAXINE CARE/DAY SERV 25 FOUNDATIO MINUTES SBSQ 17845 [place] [address] MEDICAL KER RAN CARE/DAY SERV 25 FOUNDATIO MINUTES SBSQ 49787 [facility] 4 MEDICAL KER RAN CARE/DAY SERV 25 FOUNDATIO MINUTES SBSQ 17479 [place] [address] MEDICAL NAN CARE/DAY SERV 25 FOUNDATIO MINUTES SBSQ 69125 [place] [address] MEDICAL NAN CARE/DAY SERV 25 FOUNDATIO MINUTES SBSQ 07981 [place] [address] MEDICAL NAN CARE/DAY SERV 25 FOUNDATIO MINUTES SBSQ 46229 [place] [address] MEDICAL NAN CARE/DAY SERV 25 FOUNDATIO MINUTES DUP-SCAN 21275 EUGENIA EUGENIA XTR VEINS 4 GABBIE GABBIE COMPLETE BILATERAL STUDY SBSQ 31052 [place] [address] MEDICAL MICAELA CARE/DAY SERV 35 FOUNDATIO MINUTES SBSQ 76888 [place] [address] MEDICAL ALA CARE/DAY SERV 35 FOUNDATIO MINUTES N INITIAL 85378 [facility] 4 MEDICAL MICAELA CARE/DAY SERV 70 FOUNDATIO MINUTES SBSQ 32973 [facility] 4 MEDICAL ALA CARE/DAY SERV 35 FOUNDATIO MINUTES N SBSQ 61297 [facility] 4 MEDICAL ALA CARE/DAY SERV 25 FOUNDATIO MINUTES N SBSQ 36243 [facility] 4 MEDICAL ALA CARE/DAY SERV 25 FOUNDATIO MINUTES N LEVEL III 05477 [facility]O SURG 4 MEDICAL SHADIA PATHOLOGY SERV FOUNDATIO GROSS&MIRTA ROSCOPIC EXAM DECALCIFI 81140 [place] [facility] CATION 4 MEDICAL SHADIA PROCEDURE SERV FOUNDATIO ECG 46038 [place] CLAUDET[place] CHI ROUTINE 4 MEDICAL ECG SERV W/LEAST FOUNDATIO 12 LDS N I&R ONLY RADEX HIP 74011 [facility] 4 MEDICAL MEDICAL UNILATERA SERV SERV L FOUNDATIO FOUNDATIO COMPLETE MINIMUM 2 VIEWS RADIOLOGI 97776 [place] ERWIN 4 MEDICAL FRA EXAMINATI SERV ON PELVIS FOUNDATIO 1/2 VIEWS ARTHRP 37910 [place] ARUN ABHI ACETBLR/P 4 MEDICAL EVELIN FEM SERV PROSTC FOUNDATIO AGRFT/ALG RFT SBSQ 95245 [facility] 4 MEDICAL ALA CARE/DAY SERV 25 FOUNDATIO MINUTES N SBSQ 78602 [facility] 4 MEDICAL ALA CARE/DAY SERV 25 FOUNDATIO MINUTES N SBSQ 58491 [facility] 4 MEDICAL CARE/DAY SERV 25 FOUNDATIO MINUTES N SBSQ 67346 [facility] 4 MEDICAL CARE/DAY SERV 25 FOUNDATIO MINUTES N SBSQ 76795 [facility] 4 MEDICAL CARE/DAY SERV 25 FOUNDATIO MINUTES N RADIOLOGI 55648 [facility] LEEANN C 4 MEDICAL EXAMINATI SERV ON CHEST FOUNDATIO [place] RADIOLOGI 74018 [place] [facility] C 4 MEDICAL EXAMINATI SERV ON CHEST FOUNDATIO [place] FRONTAL RADEX HIP 48540 [place] [facility] 4 MEDICAL UNILATERA SERV L FOUNDATIO COMPLETE MINIMUM 2 VIEWS ARTHRP 56410 [place] ARUN ABHI ACETBLR/P 4 MEDICAL EVELIN FEM SERV PROSTC FOUNDATIO AGRFT/ALG RFT ANESTHESI 43993 [facility] A OPEN 4 LTH JR FADUMO TOTAL HIP ANESTHESI A PSC ARTHROPLA STY RADIOLOGI 61555 [place] USHA LEEANN C 4 MEDICAL EXAMINATI SERV ON PELVIS FOUNDATIO 1/2 VIEWS ECG 06707 [place] CLA[facility] CHI ROUTINE 4 MEDICAL ECG SERV W/LEAST FOUNDATIO 12 LDS N I&R ONLY LEVEL III 79588 [facility] SURG 4 MEDICAL [place] PATHOLOGY SERV FOUNDATIO GROSS&MIRTA ROSCOPIC EXAM DECALCIFI 28587 [facility] CATION 4 MEDICAL [place] PROCEDURE SERV FOUNDATIO INITIAL 96905 [facility] 4 MEDICAL CARE/DAY SERV 50 FOUNDATIO MINUTES N CUL BACT 03645 [facility] AER[facility]IC 4 DIAGNOSTI DIAGNOSTI ADDL [facility] Scrybe METHS DEFINITIV E EA ISOL CULTURE 86473 [facility] BCT 4 DIAGNOSTI DIAGNOSTI ISOL&PRSM [facility] PTV ID ISOLATE EA URINE CULTURE 64375 [facility] BACTERIAL 4 DIAGNOSTI DIAGNOSTI [facility] QUANTTATI VE COLONY COUNT URINE SUSCEPTIB 29459 [facility] LTY STDY 4 DIAGNOSTI DIAGNOSTI ANTIMICRB [facility] IAL MICRO/AGA R DILUTJ BLOOD 36507 [facility] COUNT 4 Y Y COMPLETE [facility] AUTOMATED URNLS DIP 76161 [facility] 4 Y Y STICK/TAB [facility] LET REAGENT AUTO MICROSCOP Y PREALBUMI 43002 [facility] N 4 Y Y HOSPITAL HOSPITAL COLLECTIO 56600 [facility] N VENOUS 4 Y Y BLOOD [facility] VENIPUNCT URE CULTURE 49417 [facility] BACTERIAL 4 Y Y HOSPITAL [facility] QUANTTATI VE COLONY COUNT URINE CUL BACT 57623 [facility] AEROBIC 4 Y Y ADDL [facility] METHS DEFINITIV E EA ISOL SUSCEPTIB 24195 [facility] LTY STDY 4 Y Y [facility] IAL MICRO/AGA R DILUTJ BASIC 91574 [facility] METABOLIC 4 Y Y PANEL [facility] CALCIUM TOTAL RADEX HIP 55735 T[facility]O VO 4 MEM HOSP MEM HOSP UNILATERA INC INC L COMPLETE MINIMUM 2 VIEWS RADEX 29494 T[facility] VO SPINE 4 MEM HOSP MEM HOSP LUMBOSACR INC INC AL ONLY BENDING 2/3 VIEWS [facility] 24408 [place] DISCHARGE 4 MEDICAL ELSA DAY SERV MANAGEMEN FOUNDATIO T 30 MIN/< AMB [id number] Güven[facility]hber[facility] SERVICE 4 AMBULANCE AMBULANCE ALS SERVICE SERVICE EMERGENCY TRANSPORT LEVEL 1 GROUND A0425 inDinero MILEAGE 4 AMBULANCE AMBULANCE PER SERVICE SERVICE STATUTE MILE 10330 [place] HEIDI RETROPERI 4 MEDICAL MAT TONEAL SERV REAL TIME FOUNDATIO W/[place] [address] [place] DEWAYNE ABDOMEN & 4 MEDICAL SCO PELVIS SERV W/CONTRAS FOUNDATIO T MATERIAL ANES 31884 [place] SEANIDER TRANSURET 4 MEDICAL RAN HRAL SERVICES W/[place] [address] [place] LINDSEY KAYLYN SURG 4 MEDICAL PATHOLOGY SERV FOUNDATIO GROSS&MIRTA ROSCOPIC EXAM CYSTOURET 68572 [place] HROSCOPY 4 MEDICAL ELSA WITH SERV BIOPSY FOUNDATIO ECG 12379 [facility] ROUTINE 4 Y Y ECG [facility] W/LEAST 12 LDS TRCG ONLY W/O I&R ECG 11099 [place] YASMANY TATA ROUTINE 4 MEDICAL ECG SERV W/LEAST FOUNDATIO 12 LDS N I&R ONLY CULTURE 06041 [facility] BACTERIAL 4 Y Y [facility] QUANTTATI VE COLONY COUNT URINE CULTURE 87523 [facility] BCT 4 Y Y ISOL&[facility] PTV ID ISOLATE EA URINE CULTURE 06103 [facility] BACTERIAL 4 Y Y [facility] QUANTTATI VE COLONY COUNT URINE URNLS DIP 94085 [place] 4 MEDICAL ELSA STICK/TAB SERV LET RGNT FOUNDATIO AUTO W/O MICROSCOP Y CYSTOURET 21035 [place] HROSCOPY 4 MEDICAL ELSA SERV FOUNDATIO CYSTOURET 20504 [place] HROSCOPY 4 MEDICAL ELSA SERV FOUNDATIO URNLS DIP 40383 [place] 4 MEDICAL ELSA STICK/TAB SERV LET RGNT FOUNDAT[place] AUTO W/[place] [address] [facility] ABDOMEN & 4 Y Y PELVIS [facility] W/O CONTRST 1/> BODY RE SUSCEPTIB 54300 [facility] LTY STDY 4 Y Y ANTIMICRB [facility] IAL MICRO/AGA R DILUTJ LOCM Q9967 [facility] 300-399 4 Y Y MG/ML [facility] IODINE CONCENTRA TION PER ML CUL BACT 68832 [facility] AEROBIC 4 Y Y ADDL [facility] METHS DEFINITIV E EA ISOL CULTURE 34856 [facility] BACTERIAL 4 Y Y [facility] QUANTTATI VE COLONY COUNT URINE 3D 41568 [place] RENDERING 4 MEDICAL MEDICAL SERV SERV W/INTERP& FOUNDATIO FOUNDATIO POSTPROC DIFF WORK STATION THROMBOPL 29199 [facility] ASTIN 4 Y Y TIME HOSPITAL HOSPITAL PARTIAL PLASMA/WH OLE BLOOD INJECTION J2710 [facility] 4 Y Y NEOSTIGMI [facility] NE METHYLSUL FATE UP TO 0.[address] [facility] FENTANYL 4 Y Y CITRATE [facility] 0.[address] [facility] NORMAL 4 Y Y SALINE [facility] SOLUTION 1000 CC ANESTHESI 75397 [place] TSE A 4 MEDICAL DUN CAROTID/C SERV ORONARY FOUNDATIO THER IVNTL RAD INJECTION J0171 [facility] 4 Y Y ADRENALIN [facility] EPINEPHRI NE 0.[address] [facility] ACCESS 4 Y Y SITS VSL [facility] HOSPITAL PATENCY NDL ENTRY PLCMT G0269 [facility] OCCL DEVC 4 Y Y HOSPITAL HOSPITAL IRENE/ART POST SURG/INTR VNL PROC COMPREHEN 14175 [facility] SIVE 4 Y Y METABOLIC HOSPITAL HOSPITAL PANEL LOCM Q9967 [facility] [phone] 4 Y Y MG/ML HOSPITAL HOSPITAL IODINE CONCENTRA TION PER ML SLCTV 75532 [place] LUZ MARINA CATH 4 MEDICAL ABD INTRNL SERV CAROTID FOUNDATIO ART ANGIO INTRCRNL ART INJECTION J2405 [facility] 4 Y [facility] PER 1 MG INTRDUCR/ C1894 [facility] SHEATH 4 Y Y NOT GUID [facility] INTRACARD EP NON-LASR CLOSURE C1760 [facility] DEVICE 4 Y Y VASCULAR HOSPITAL HOSPITAL BLOOD 08238 [facility] COUNT 4 Y Y COMPLETE [facility] AUTOMATED GUIDE C1769 [facility] WIRE 4 Y Y [facility] PROTHROMB 83323 [facility] IN TIME 4 Y Y HOSPITAL HOSPITAL INJECTION J1644 [facility] HEPARIN 4 Y Y SODIUM [facility] PER 1000 UNITS URNLS DIP 10120 [place] ALEX 3 MEDICAL ELSA STICK/TAB SERV LET RGNT FOUNDATIO AUTO W/O MICROSCOP Y FAREED 78939 [place] ALEX POST-VOID 3 MEDICAL ELSA ING SERV RESIDUAL FOUNDATIO URINE&/BL ADDER CAP CYTP 73544 [facility] SLCTV 3 Y Y CELL [facility]ITAL HOSPITAL ENHANCEME NT INTERPJ XCPT C/V CULTURE 24413 [facility] BACTERIAL 3 Y Y HOSPITAL HOSPITAL QUANTTATI VE COLONY COUNT URINE CULTURE 32540 LAB [facility] LAB KATHERINE BACTERIAL 3 EDDIE [facility] QUANTTATI VE COLONY COUNT URINE INFUSION J7030 [facility] NORMAL 3 Y Y SALINE HOSPITAL HOSPITAL SOLUTION [address] [facility] METABOLIC 3 Y Y PANEL HOSPITAL HOSPITAL CALCIUM TOTAL INJECTION J0692 [facility] CEFEPIME 3 Y Y HOSPITAL HOSPITAL HYDROCHLO RIDE 500 MG BLOOD 93658 [facility] COUNT 3 Y Y COMPLETE HOSPITAL HOSPITAL AUTOMATED HOSPITAL G0378 [facility] OBSERVATI 3 Y Y ON HOSPITAL HOSPITAL SERVICE PER HOUR INJECTION J0692 [facility] CEFEPIME 3 Y Y HOSPITAL [facility] HYDROCHLO RIDE [address] IN[address] [facility] 3 Y Y LEVOFLOXA [facility] WILLI [address] IN[address] [facility] NORMAL 3 Y Y SALINE [facility] SOLUTION [address] [facility] BACTERIAL 3 Y Y HOSPITAL [facility] QUANTTATI VE COLONY COUNT URINE INFUSION J7030 [facility] NORMAL 3 Y Y SALINE [facility] SOLUTION 1000 CC GROUND A0425 [facility] MILEAGE 3 AMBULANCE AMBULANCE [place] [address] [facility] 3 Y Y THERAPY/P [facility] ROPHYLAXI S /DX 1ST TO [address] [facility] IC 3 Y Y INJECTION [facility] IV PUSH EACH NEW DRUG THER 77229 [facility] PROPH/DX 3 Y Y NJX [facility] SEQL IV PUSH SBST/DRUG FAC AMB A0427 [facility] SERVICE 3 AMBULANCE AMBULANCE ALS SERVICE SERVICE EMERGENCY TRANSPORT LEVEL [address] [facility] 3 Y Y LEVOFLOXA [facility] WILLI [address] [facility] 3 Y Y HYDROMORP [facility] STEVE UP TO [address] IN[address] [facility] 3 Y [facility] PER [address] [facility] 300-399 3 Y Y MG/ML [facility] IODINE CONCENTRA TION PER ML COMPREHEN 43402 [facility] SIVE 3 Y Y METABOLIC [facility] [place] [place] [address] [facility] 3 Y Y THER [facility] PROPH ADDL SEQUENTIA L TO 1 HR INITIAL 97110 JAMES HUFFATI 3 EMERGENCY ON SERVICES CARE/[place] [address] [place] [place] [address] [facility] ABDOMEN & 3 Y Y PELVIS [facility] W/CONTRAS T MATERIAL URNLS DIP 05788 [facility] 3 Y Y STICK/TAB [facility] HOSPITAL LET REAGENT AUTO MICROSCOP Y BLOOD 36611 [facility] COUNT 3 Y Y COMPLETE [facility] AUTO&AUTO DIFRNTL WBC BASIC 24023 LAB KATHERINE LAB KATHERINE METABOLIC 3 EDDIE EDDIE PANEL [facility] [place] [address] [facility] SURG 3 DIAGNOSTI DIAGNOSTI PATHOLOGY CS CS GROSS&MIRTA ROSCOPIC EXAM SLCTV 95815 [place] ALHAJER[place] CATH 3 MEDICAL ABD INTRNL SERV CAROTID FOUNDATIO ART ANGIO INTRCRNL ART ANGRPH 20910 [place] CATH F-UP 3 MEDICAL MEDICAL STD TCAT SERV SERV OTHER FOUNDATIO FOUNDATIO THAN THROMBYLS IS TRANSCATH 74449 [place] ALHAJER[place] ETER 3 MEDICAL ABD EMBOLIZAT SERV ION ANY FOUNDATIO METH RS&I ANES ICRA 50824 [place] STEYN PIE 3 MEDICAL ICAR/AORT SERV IC THER FOUNDATIO IVNTL RAD ARTL ARTL 58791 [place] STE[place] PIE CATHJ/CAN 3 MEDICAL NULJ SERV MNTR/JOE FOUNDATIO SFUSION SPX PRQ TCAT 12296 [place] PERMANENT 3 MEDICAL MEDICAL SERV SERV OCCLUSION FOUNDATIO FOUNDATIO /EMBOLIZA TION PRQ JEWEL FLAT SURFACER 3D 02923 [place] RENDERING 3 MEDICAL MEDICAL SERV SERV W/INTERP& FOUNDATIO FOUNDATIO POSTPROC DIFF WORK STATION US SOFT 63964 T[facility] VO TISSUE 3 MEM HOSP MEM HOSP HEAD & INC [place] [address] [place] RASLAU ANGIOGRAP 3 MEDICAL FLA HY HEAD SERV W/CONTRAS FOUNDATIO T/[place] [address] [place] ANGIOGRAP 3 MEDICAL FLA HY NECK SERV W/CONTRAS [place]AT[place] T/[place] [address] [facility] VO HEAD/BRAI 3 MEM HOSP MEM HOSP N W/O INC INC CONTRAST MATERIAL BLOOD 98867 T[facility] VO COUNT 3 MEM HOSP MEM HOSP COMPLETE INC INC AUTO&AUTO DIFRNTL WBC BASIC 51441 T[facility] VO METABOLIC 3 MEM HOSP MEM HOSP PANEL INC INC CALCIUM TOTAL 3D 69221 T[facility]O TAVO RENDERING 3 MEM HOSP MEM HOSP W/INTERP INC INC & [place] 3D [address]66 [place] ALHAJERI RENDERING 3 MEDICAL ABD SERV W/INTERP& FOUNDATIO POSTPROC DIFF WORK STATION ANESTHESI 55049 [place] SATISH PIE A 3 MEDICAL CAROTID/C SERV ORONARY FOUNDATIO THER IVNTL RAD SLCTV 67288 [place] ALHAJERI CATH 3 MEDICAL ABD INTRNL SERV CAROTID FOUNDATIO ART ANGIO INTRCRNL ART LOCM Q9967 [facility] 300-399 2 Y Y MG/ML [facility] [place] [address] [place] AYOOB AND ABDOMEN & 2 MEDICAL PELVIS SERV W/CONTRAS FOUNDATIO T MATERIAL GLUCOSE 29215 Eduardo Jones RUBI JULIO C QUANTITAT 2 [facility] [address] TAVO VO CERVICAL 2 [facility] SPINE W/O INC INC CONTRAST MATERIAL THERAPEUT 01078 T[facility] VO IC 2 MEM HOS[facility] PROPHYLAC INC INC TIC/DX INJECTION SUBQ/IM 3D 10734 T[facility] VO RENDERING 2 MEM HOS[facility] INC INC W/INTERP& POSTPROC DIFF WORK STATION SBSQ 08485 [place] [facility] 2 MEDICAL CARE/DAY SERV 15 FOUNDATIO MINUTES SLCTV 05819 [place] CATHJ 2 MEDICAL MEDICAL 3RD+ ORD SERV SERV SLCTV FOUNDATIO FOUNDATIO THRC/BRCH /CPHLC BRNCH ANGIOGRAP 26190 [place] AL[place]ER[place] HY 2 MEDICAL ABD CAROTID SERV CEREBRAL FOUNDATIO UNILATERA L RS&I TRANSCATH 51465 [place] ETER 2 MEDICAL MEDICAL EMBOLIZAT SERV SERV ION ANY FOUNDATIO FOUNDATIO METH RS&I ANGRP 47739 [place] CATH F-UP 2 MEDICAL MEDICAL STD TCAT SERV SERV OTHER FOUNDATIO FOUNDATIO THAN THROMBYLS IS TCAT 85762 [place] PERMANENT 2 MEDICAL MEDICAL SERV SERV OCCLUSION FOUNDATIO FOUNDATIO /EMBOLIZA TION PRQ JEWEL FLAT SURFACER ARTL 39492 [place] DORITY CATHJ/CAN 2 MEDICAL SRI NULJ SERV MNTR/JOE FOUNDATIO SFUSION SPX PRQ ANES ICRA 64575 [place] DORITY 2 MEDICAL SRI ICAR/AORT SERV IC THER FOUNDATIO IVNTL RAD ARTL ECG 48244 [place] CLAUDETTE C ROUTINE 2 MEDICAL ECG SERV W/LEAST FOUNDATIO 12 LDS I&R ONLY URNLS DIP 27989 [facility] 2 Y Y STICK/TAB HOSPITAL [facility] LET REAGENT AUTO MICROSCOP Y BLOOD 46304 [facility] COUNT 2 Y Y COMPLETE [facility] AUTOMATED COLLECTIO 25460 [facility] N VENOUS 2 Y Y BLOOD [facility] VENIPUNCT URE BASIC 35755 [facility] METABOLIC 2 Y Y PANEL [facility] CALCIUM TOTAL US VASC 72922 [place] ALHAJERI ACCESS 2 MEDICAL ABD SITS VSL SERV PATENCY FOUNDATIO NDL ENTRY PLCMT G0269 [facility] OCCL DEVC 2 Y Y HOSPITAL [facility] IRENE/ART POST SURG/INTR VNL PROC 3D 21673 [facility] RENDERING 2 Y Y HOSPITAL [facility] W/INTERP& POSTPROC DIFF WORK STATION ANESTHESI 94978 [place] D[place] A 2 MEDICAL SRI DIAGNOSTI SERV C FOUNDATIO ARTERIOGR APHY/VENO GRAPH INFUSION J7030 [facility] NORMAL 2 Y Y SALINE [facility] SOLUTION [address] [facility] 2 Y Y KETOROLAC [facility] TROMETHAM INE PER [address] IN[address] [facility] 2 Y Y NEOSTIGMI [facility] NE METHYLSUL FATE UP TO 0.[address] [facility] 2 Y Y SUCCINYLC [facility] HOLINE CHLORIDE UP TO [address] [facility] 300-399 2 Y Y MG/ML [facility]PITAL IODINE CONCENTRA TION PER ML CLOSURE C1760 [facility] DEVICE 2 Y Y VASCULAR [facility] INTRDUCR/ C1894 [facility] SHEATH 2 Y Y NOT GUID [facility] INTRACARD EP NON-LASR ARTL 34176 [place] CATHJ/CAN 2 MEDICAL SRI NULJ SERV MNTR/JOE FOUNDATIO SFUSION SPX PRQ SLCTV 26020 [facility] CATH 1ST 2 Y Y 2ND ORD HOSPITAL HOSPITAL THRC/BRCH /CPHLC BRNCH ANGIOGRAP 77996 [facility] 2 Y Y [facility]TEBRAL HOSPITAL HOSPITAL /CERVICAL /&/INTRAC RAN RS&I ANGIOGRAP 93798 [facility] 2 Y Y CERVICOCE [facility] REBRAL CATHETER RS&I SLCTV 64529 [facility] 2 Y Y 3RD+ ORD HOSPITAL [facility] SLCT THR/BR /[facility] J7120 [facility] LACTATE 2 Y Y INFUSION HOSPITAL HOSPITAL UP TO 1000 CC ANGIOGRAP 37504 [facility] 2 Y Y [facility] CEREBRAL BILATERAL RS&I ANGIOGRAP 33196 [facility] 2 Y Y [facility] CERVICAL BILATERAL RS&I GUIDE C1769 [facility] WIRE 2 Y Y HOSPITAL HOSPITAL INJECTION J1644 [facility] HEPARIN 2 Y Y SODIUM HOSPITAL HOSPITAL PER [address] [facility] ROUTINE 2 Y Y ECG HOSPITAL HOSPITAL W/LEAST 12 LDS TRCG ONLY W/O I&R PROTHROMB 05093 [facility] IN TIME 2 Y Y HOSPITAL HOSPITAL ECG 39236 [place] CLAUDETTE C ROUTINE 2 MEDICAL ECG SERV W/LEAST FOUNDATIO 12 LDS I&R ONLY BLOOD 07304 [facility] COUNT 2 Y Y COMPLETE HOSPITAL HOSPITAL AUTOMATED URNLS DIP 99076 [facility] 2 Y Y STICK/TAB HOSPITAL HOSPITAL LET REAGENT AUTO MICROSCOP Y THROMBOPL 30316 [facility] ASTIN 2 Y Y TIME HOSPITAL HOSPITAL PARTIAL PLASMA/WH OLE BLOOD BASIC 81055 [facility] METABOLIC 2 Y Y PANEL HOSPITAL HOSPITAL CALCIUM TOTAL US SOFT 15968 [facility] TISSUE 2 Y Y HEAD & HOSPITAL HOSPITAL NECK REAL TIME IMGE DOCM LOCM Q9967 [facility] 300-399 2 Y Y MG/ML HOSPITAL HOSPITAL IODINE CONCENTRA TION PER ML CT SOFT 14875 [facility] TISSUE 2 Y Y NECK [facility] H[facility] W/[place] [address] [facility] UREA 2 Y Y NITROGEN [facility] QUANTITAT [place] CREATININ 32188 [facility] E BLOOD 2 Y [address] [facility] THORAX 23881 [facility] 2 Y Y W/CONTRAS [facility] T MATERIAL LARYNGOSC [address] [place] OPY 2 MEDICAL LEEANN FLEXIBLE SERV DIAGNOSTI FOUNDATIO C COMPREHEN 58049 [facility] SIVE 1 DIAGNOSTI DIAGNOSTI METABOLIC CS CS PANEL LIPID 74385 [facility] PANEL 1 DIAGNOSTI DIAGNOSTI CS CS PRESCRIPT [id number] [facility] IONS GEN 1 NEUMANNS PAB TRANSMITT EXTENDED ED H QUALIFIED ERX SYS THROMBOPL 07716 [facility] ASTIN 1 AN AN TIME REGIONAL [facility]IONAL PARTIAL MEDICAL MEDICAL PLASMA/WH OLE BLOOD INFUSION J7030 [facility] NORMAL 1 AN AN SALINE [facility]AL [facility]AL SOLUTION MEDICAL MEDICAL 1000 CC BASIC 00225 [facility] METABOLIC 1 AN AN PANEL REGIONAL REGIONAL CALCIUM MEDICAL MEDICAL TOTAL LOCM Q9967 [facility] 300-399 1 AN AN MG/ML REGIONAL REGIONAL IODINE MEDICAL MEDICAL CONCENTRA TION PER ML COLLECTIO 07796 [facility] N VENOUS 1 AN AN BLOOD REGIONAL REGIONAL VENIPUNCT MEDICAL MEDICAL URE BLOOD 11706 [facility] COUNT 1 AN AN COMPLETE [facility]AL [facility]AL AUTO&[place] [address] [facility] ABDOMEN 1 AN AN W/O & REGIONAL REGIONAL W/CONTRAS MEDICAL MEDICAL T MATERIAL BLEEDING 72054 [facility] TIME TEST 1 AN AN [facility]AL [facility]AL MEDICAL MEDICAL PROTHROMB 19315 [facility] IN TIME 1 AN AN REGIONAL REGIONAL MEDICAL MEDICAL PRESCRIPT G8553 [facility] EHSAN IONS GEN 1 NEUMANNS PAB TRANSMITT EXTENDED ED H QUALIFIED ERX SYS MRI 95660 NEURODIAG L[facility]Z TRA SPINAL 1 NOSTICPSC CANAL CERVICAL W/O CONTRAST MATRL MRI 85343 NEURODIAG LUTZ TRA SPINAL 1 NOSTICPSC CANAL LUMBAR W/O CONTRAST MATERIAL PRESCRIPT G8553 [facility] IONS GEN 1 NEUMANNS PAB TRANSMITT EXTENDED ED H QUALIFIED ERX SYS HEPATIC 36703 [facility] QUEST FUNCTION 1 DIAGNOSTI DIAGNOSTI PANEL CS CS US SOFT 95688 [place] TISSUE 1 MEDICAL HEAD & SERV NECK REAL FOUNDATIO TIME IMGE DOCM PRESCRIPT G8553 [facility] IONS GEN 1 NEUMANNS PAB TRANSMITT EXTENDED ED H QUALIFIED ERX SYS BILIRUBIN 81784 [facility] QUEST DIRECT 1 [place] [address] [facility] PHOSPHATA 1 DIAGNOSTI DIAGNOSTI SE CS CS ALKALINE TRANSFERA 54844 [facility] QUEST SE 1 DIAGNOSTI DIAGNOSTI ASPARTATE CS CS AMINO AST SGOT TRANSFERA 06898 [facility] SE 1 DIAGNOSTI DIAGNOSTI ALANINE CS CS AMINO ALT SGPT BILIRUBIN 64396 [facility] TOTAL 1 DIAGNOSTI DIAGNOSTI CS CS ALBUMIN 55518 [facility] SERUM 1 DIAGNOSTI DIAGNOSTI PLASMA/WH CS CS OLE BLOOD PRESCRIPT G8553 [facility]HOLE[facility] IONS GEN 1 NEUMANNS PAB TRANSMITT EXTENDED ED H QUALIFIED ERX SYS EXC PRTD 55077 [facility] CARLA/PRTD 1 Y Y GLND LAT [facility] DSJ&PRSRV FACIAL NR LEVEL V 42431 [facility] SURG 1 Y Y PATHOLOGY [facility] GROSS&MIRTA ROSCOPIC EXAM LARYNGOSC 50474 [facility] OPY W/WO 1 Y Y TRACHEOSC [facility] OPY W/MICRO/T ELESCOPE ECG [address]6210 [facility] ROUTINE 1 Y Y ECG [facility] W/LEAST 12 LDS TRCG ONLY W/O I&R ECG 81253 [place] C ROUTINE 1 MEDICAL ECG SERV W/LEAST FOUNDATIO 12 LDS I&R ONLY R& L HRT 61263 HEART & HEART & CATH 1 VASCULAR VASCULAR W/INJEC SPECIALIS SPECIALIS HRT TS ART/GRFT& L VENT I CV STRS 70665 HEART & [facility] TST 1 VASCULAR XERS&/OR SPECIALIS RX CONT TS ECG W/O I&R CV STRS 70034 [facility] TST 1 MED CTR, MED CTR, XERS&/OR ATTN: ATTN: RX CONT DENE DENE ECG TRCG ONLY INJECTION J2785 [facility] 1 MED CTR, MED CTR, REGADENOS ATTN: ATTN: ON 0.1 MG DENE DENE ECHO 94061 [facility] TTHRC R-T 1 MED CTR, MED CTR, 2D ATTN: ATTN: W/WOM-MOD DENE DENE E COMPL SPEC&COLR D TECHNETIU A9500 [facility] M TC-99M 1 MED CTR, MED CTR, SESTAMIBI ATTN: ATTN: DX PER DANIEL SANCHEZ STUDY DOSE MYOCARDIA 91885 HEART & HEART & L SPECT 1 VASCULAR VASCULAR SINGLE SPECIALIS SPECIALIS STUDY AT [facility] REST OR STRESS MYOCARDIA 51441 [facility] L SPECT 1 MED CTR, MED CTR, MULTIPLE ATTN: ATTN: STUDIES DENE DENE CREATININ 00390 [facility] E OTHER 1 [employer] SOURCE PH BODY 60571 [facility] FLUID NOT 1 [employer] ELSEWHERE SPECIFIED SPECTROPH 83824 [facility] OTOMETRY 1 [employer] ANALYT NOT ELSEWHERE SPECIFIED CT THORAX 95452 [facility] 1 MED CTR, MED CTR, W/CONTRAS ATTN: ATTN: [place] [address] [facility] INFUSION 1 MED CTR, MED CTR, HYDRATION ATTN: ATTN: INITIAL DENE DENE 31 MIN-1 [place] [address] [facility] INFUSION 1 MED CTR, MED CTR, THERAPY ATTN: ATTN: PROPHYLAX DENE DENE IS/DX EA HOUR CUL BACT 45023 [place] AEROBIC 1 MED CTR, MED CTR, ADDL ATTN: ATTN: METHS DENE DENE DEFINITIV E EA ISOL CULTURE 71652 [place] BACTERIAL 1 MED CTR, MED CTR, ATTN: ATTN: QUANTTATI DENE DENE VE COLONY COUNT URINE LOCM Q9967 [place] [phone] 1 MED CTR, MED CTR, MG/ML ATTN: ATTN: IODINE DENE DENE CONCENTRA TION PER ML COMPREHEN 84259 [place] SIVE 1 MED CTR, MED CTR, METABOLIC ATTN: ATTN: PANEL DENE DENE COLLECTIO 45553 [place] N VENOUS 1 MED CTR, MED CTR, BLOOD ATTN: ATTN: VENIPUNCT DENE DENE URE INJECTION J0696 [place] 1 [facility] CTR, MED CTR, CEFTRIAXO ATTN: ATTN: NE SODIUM DENE DENE PER 250 MG ARTERIAL 32551 [place] PUNCTURE 1 MED CTR, MED CTR, WITHDRAWA ATTN: ATTN: L BLOOD DENE DENE DX SUSCEPTIB 69331 [place] LTY STDY 1 MED CTR, MED CTR, ANTIMICRB ATTN: ATTN: IAL EVERE DENE MICRO/AGA R DILUTJ BLOOD 45977 [place] GASES ANY 1 MED CTR, MED CTR, ATTN: ATTN: COMBINATI DANIEL DENRadha ON PH PCO2 PO2 CO2 HCO3 HEMOGLOBI 67089 [place] N 1 MED CTR, MED CTR, METHEMOGL ATTN: ATTN: OBANSELMO SANCHEZ QUANTITAT [place]ST[place] NATRIURET 75907 [place] IC 1 MED CTR, MED CTR, PEPTIDE ATTN: ATTN: DANIEL DENE URNLS DIP 01370 [place] 1 MED CTR, MED CTR, STICK/TAB ATTN: ATTN: ERIN SANCHE[place] [address] [place] TROPONIN 1 MED CTR, MED CTR, QUANTITAT ATTN: ATTN: WESTLEY DENE DENE BLOOD 04963 [place] COUNT 1 MED CTR, MED CTR, COMPLETE ATTN: ATTN: AUTO&AUTO DENE DENE DIFRNTL WBC RADIOLOGI 96310 [place] C 1 MED CTR, MED CTR, EXAMINATI ATTN: ATTN: ON CHEST DENE DENE SINGLE VIEW FRONTAL CT THORAX 64680 [facility] NIKITA 1 RIVER HBP SHADIA W/CONTRAS LLC T MATERIAL CREATINE 76517 [place] KINASE 1 MED CTR, MED CTR, TOTAL ATTN: ATTN: DENE DENE ECG 33803 [place] ROUTINE 1 MED CTR, MED CTR, ECG ATTN: ATTN: W/LEAST DENE DENE 12 LDS TRCG ONLY W/O I&[place] [address] [place] MAGNESIUM 1 MED CTR, MED CTR, ATTN: ATTN: DENE DENE GASES 05614 [place] BLOOD PH 1 MED CTR, MED CTR, DIRECT ATTN: ATTN: FAREED XCPT DENE DENE PULSE OXIMITRY CARBOXYHE 34480 [place] MOGLOBIN 1 MED CTR, MED CTR, QUANTITAT ATTN: ATTN: WESTLEY DENE DENE CREATINE 08151 [place] KINASE MB 1 MED CTR, MED CTR, FRACTION ATTN: ATTN: ONLY DENE DENE FIBRIN 95903 [place] DGRADJ 1 MED CTR, MED CTR, PRODUCTS ATTN: ATTN: D-DIMER DENE DENE QUAL/SEMI JUAN CARLOS CYTP FINE 01721 [place] NDL 1 MEDICAL BRILL YOL ASPIRATE SERV IMMT FOUNDATIO CYTOHIST STD EA EVAL CYTP FINE 56455 [place] NDL 1 MEDICAL BRILL YOL ASPIRATE SERV IMMT FOUNDATIO CYTOHIST STD DX 1ST CYTP EVAL 33038 [place] FINE 1 MEDICAL BRILL YOL NEEDLE SERV ASPIRATE FOUNDATIO INTERP & RE[place] [address] [place] FRIED A GUIDANCE 1 MEDICAL NEEDLE SERV PLACEMENT FOUNDATIO IMG S&I FINE 44662 [place] FRIED A NEEDLE 1 MEDICAL ASPIRATIO SERV N WITH FOUNDATIO IMAGING GUIDANCE RADEX 37939 [facility] ABDOMEN 1 1 MED CTR, MED CTR, ATTN: ATTN: ANTEROPOS DENE DENE TERIOR VIEW RADEX 31154 [facility] ABDOMEN 1 1 MED CTR, MED CTR, ATTN: ATTN: ANTEROPOS DENE DENE TERIOR VIEW INJECTION J2765 [facility] 1 MED CTR, MED CTR, METOCLOPR ATTN: ATTN: AMIDE HCL DENE DENE UP TO 10 MG ESOPHAGOG 10450 [facility] ASTRODUOD 1 MED CTR, MED CTR, ENOSCOPY ATTN: ATTN: TRANSORAL DENE DENE DIAGNOSTI C INJECTION J2250 [facility] 1 MED CTR, MED CTR, MIDAZOLAM ATTN: ATTN: HCL PER DENE DENE 1 MG SIGMOIDOS 95523 [facility] COPY FLX 1 MED CTR, MED CTR, DX ATTN: ATTN: W/COLLJ DENE DENE SPEC BR/WA IF PFRMD COLONOSCO 07341 BRENDA HORN PY FLX DX 1 PHYSICIAN MAXINE W/COLLJ KATHERINE SPEC WHEN PFRMD ECG 39685 [facility] ROUTINE 1 MEDICAL MEETA ECG SPECIALIT W/LEAST Y CL 12 LDS I&[place] [address] [place] [facility] ABDOMEN & 1 RIVER HBP SHADIA [employer] LLC W/CONTRAS T MATERIAL RADIOLOGI 16315 [place] [facility] C EXAM 1 RIVER HBP SHADIA CHEST 2 LLC VIEWS FRONTAL&[place] [address] [facility] THYROID 1 INRFOOD [facility] INRFOOD [facility] STIMULATI NG HORMONE TSH BLOOD 95423 [facility] COUNT 1 [facility] COMPLETE AUTO&AUTO DIFRNTL WBC COMPREHEN 47723 [facility] SIVE 1 INRFOOD [facility] METABOLIC PANEL CYTP EVAL 51787 [place] COLTEN GALLEGOS FINE 1 MEDICAL NEEDLE SERV ASPIRATE FOUNDATIO INTERP & REPORT FINE 79738 [place] COLTEN GALLEGOS NEEDLE 1 MEDICAL ASPIRATIO SERV N W/O FOUNDATIO IMAGING GUIDANCE LARYNGOSC 03158 BRENDA [place] OPY 1 ENT TAR INDIRECT CLINIC [place] [address] [place] UREA 1 MED CTR, MED CTR, NITROGEN ATTN: ATTN: QUANTITAT DENRadha SANCHEZ [place] CT SOFT 22606 [place] TISSUE 1 MED CTR, MED CTR, NECK ATTN: ATTN: W/CONTRAS DANIEL SANCHEZ T MATERIAL CREATININ 07209 [place] E BLOOD 1 MED CTR, MED CTR, ATTN: ATTN: DANIEL SANCHEZ COLLECTIO 12719 [place] N VENOUS 1 MED CTR, MED CTR, BLOOD ATTN: ATTN: VENIPUNCT DANIEL SANCHEZ URE US SOFT 00654 [place] TISSUE 1 MED CTR, MED CTR, HEAD & ATTN: ATTN: NECK REAL DENRadha SANCHEZ TIME IMGE DOCM LIPID 75448 [facility] PANEL 1 [facility] COMPREHEN 34979 [facility] SIVE 1 [facility] METABOLIC PANEL BLOOD 19645 [facility] COUNT 1 [facility] COMPLETE AUTO&[place] [address] [facility] THYROID 1 [facility] STIMULATI NG HORMONE TSH MRI 85103 NEURODIAG [place] SPINAL 1 NOSTICPSC ROL CANAL CERVICAL W/O CONTRAST MATRL MRI 35229 NEURODIAG [place] SPINAL 1 NOSTICPSC ROL CANAL LUMBAR W/O CONTRAST MATERIAL MRI ANY 53417 NEURODIAG [place] JT UPPER 1 NOSTICPSC ROL EXTREMITY W/O CONTRAST MATRL WALKER E0143 GEO GEO FOLDING 1 CO MEDI CO MEDI [facility] ADJUSTABL E/FIXED HEIGHT HEPATIC 95209 [facility] FUNCTION 0 INRFOOD [facility] INRFOOD [facility] PANEL THERAPEUT 97617 [place] IC PX 1/> 0 MED CTR, MED CTR, AREAS ATTN: ATTN: EACH 15 DENE DENE MIN EXERCISES THERAPEUT 75076 [place] IC PX 1/> [...] THAN WND CARE PART TX PLAN THERAPEUT 92475 [place] IC PX 1/> 0 MED CTR MED CTR AREAS EACH 15 MIN EXERCISES THERAPEUT 95942 [place] IC PX 1/> 0 MED CTR MED CTR AREAS EACH 15 MIN EXERCISES E-STIM G0283 [place] 1/> AREAS 0 MED CTR MED CTR OTH THAN WND CARE PART TX PLAN E-STIM G0283 [place] 1/> AREAS 0 MED CTR MED CTR OTH THAN WND CARE PART TX PLAN THERAPEUT 82421 [place] IC PX 1/> 0 MED CTR MED CTR AREAS EACH 15 MIN EXERCISES PHYSICAL 87972 [place] THERAPY 0 MED CTR MED CTR RE-EVALUA TION THERAPEUT 84841 [place] IC PX 1/> 0 MED CTR MED CTR AREAS EACH 15 MIN EXERCISES E-STIM G0283 [place] 1/> AREAS 0 MED CTR MED CTR OTH THAN WND CARE PART TX PLAN RADEX 40660 [place] SPINE 0 MED CTR MED CTR LUMBOSACR AL 2/3 VIEWS RADEX 47539 [place] SPINE 0 MED CTR MED CTR THORACIC 3 VIEWS E-STIM G0283 [place] 1/> AREAS 0 MED CTR MED CTR OTH THAN WND CARE PART TX PLAN THERAPEUT 26394 [place] IC PX 1/> 0 MED CTR MED CTR AREAS EACH 15 MIN EXERCISES THERAPEUT 25157 [place] IC PX 1/> 0 MED CTR MED CTR AREAS EACH 15 MIN EXERCISES E-STIM G0283 [place] 1/> AREAS 0 MED CTR MED CTR OTH THAN WND CARE PART TX PLAN RADIOLOGI 10539 [place] C 0 MED CTR MED CTR EXAMINATI ON CHEST SINGLE VIEW FRONTAL ECG 42994 EHSAN EHSAN ROUTINE 0 PAB PAB ECG W/LEAST 12 LDS W/I&R E-STIM G0283 [place] 1/> AREAS 0 MED CTR MED CTR OTH THAN WND CARE PART TX PLAN THERAPEUT 58116 [place] IC PX 1/> 0 MED CTR MED CTR AREAS EACH 15 MIN EXERCISES THERAPEUT 71151 [place] IC PX 1/> 0 MED CTR MED CTR AREAS EACH 15 MIN EXERCISES E-STIM G0283 [place] 1/> AREAS 0 MED CTR MED CTR OTH THAN WND CARE PART TX PLAN E-STIM G0283 [place] 1/> AREAS 0 MED CTR MED CTR OTH THAN WND CARE PART TX PLAN THERAPEUT 64106 [place] IC PX 1/> 0 MED CTR MED CTR AREAS EACH 15 MIN EXERCISES THERAPEUT 68120 [place] IC PX 1/> 0 MED CTR MED CTR AREAS EACH 15 MIN EXERCISES E-STIM G0283 [place] 1/> AREAS 0 MED CTR MED CTR OTH THAN WND CARE PART TX PLAN E-STIM G0283 [place] 1/> AREAS 0 MED CTR MED CTR OTH THAN WND CARE PART TX PLAN THERAPEUT 02363 [place] PX 1/> 0 MED CTR MED CTR AREAS EACH 15 MIN EXERCISES THERAPEUT 99612 [place] PX 1/> 0 MED CTR MED CTR AREAS EACH 15 MIN EXERCISES PHYSICAL 33928 [place] THERAPY 0 MED CTR MED CTR RE-EVALUA TION E-STIM G0283 [place] 1/> AREAS 0 MED CTR MED CTR OTH THAN WND CARE PART TX PLAN E-STIM G0283 [facility] 1/> AREAS 0 MED CTR MED CTR OTH THAN WND CARE PART TX PLAN THERAPEUT 40881 [facility] IC PX 1/> 0 MED CTR MED CTR AREAS EACH 15 MIN EXERCISES E-STIM G0283 [facility] 1/> AREAS 0 MED CTR MED CTR [place] [address] [facility] THYROID [address] STIMULATI NG HORMONE TSH THERAPEUT 00059 [facility] IC PX 1/> 0 MED CTR MED CTR AREAS EACH 15 MIN EXERCISES BLOOD 60072 [facility] COUNT [address] COMPLETE AUTO&AUTO DIFRNTL WBC COMPREHEN 51196 [facility] SIVE [address] METABOLIC PANEL THERAPEUT 02698 [facility] IC PX 1/> 0 MED CTR MED CTR AREAS EACH 15 MIN EXERCISES E-STIM G0283 [facility] 1/> AREAS 0 MED CTR MED CTR OTH THAN WND CARE PART TX PLAN E-STIM G0283 [facility] 1/> AREAS 0 MED CTR MED CTR OTH THAN WND CARE PART TX PLAN THERAPEUT 95373 [facility] IC PX 1/> 0 MED CTR MED CTR AREAS EACH 15 MIN EXERCISES URINLS 59868 EHSAN EHSAN DIP 0 PAB PAB STICK/TAB LET REAGNT NON-AUTO MICRSCPY CULTURE 96765 [facility] BACTERIAL [address] QUANTTATI VE COLONY COUNT URINE CULTURE 69410 [facility] BCT [address] ISOL&PRSM PTV ID ISOLATE EA URINE STANDARD K0001 GEO DUFFY 0 CO MEDI CO MEDI R [facility] THERAPEUT 48809 [facility] IC PX 1/> 0 MED CTR MED CTR AREAS EACH 15 MIN EXERCISES E-STIM G0283 [facility] 1/> AREAS 0 MED CTR MED CTR OTH THAN WND CARE PART TX PLAN E-STIM G0283 [place] 1/> AREAS 0 MED CTR MED CTR OTH THAN WND CARE PART TX PLAN THERAPEUT 46607 [place] IC PX 1/> 0 MED CTR MED CTR AREAS EACH 15 MIN EXERCISES THERAPEUT 57305 [place] IC PX 1/> 0 MED CTR MED CTR AREAS EACH 15 MIN EXERCISES E-STIM G0283 [place] 1/> AREAS 0 MED CTR MED CTR OTH THAN WND CARE PART TX PLAN E-STIM G0283 [place] 1/> AREAS 0 MED CTR MED CTR OTH THAN WND CARE PART TX PLAN PHYSICAL 85619 [place] THERAPY 0 MED CTR MED CTR EVALUATIO N MRI 39684 NEURODIAG LUTZ TRA SPINAL 0 NOSTICPSC CANAL LUMBAR W/O CONTRAST MATERIAL URINLS 12515 EHSAN EHSAN DIP 0 PAB PAB STICK/[place] [address] BREATHIT PAMPATI ABDOMINAL 0 [place] [facility] REAL IMAGING TIME CENT W/IMAGE LIMITED CULTURE 58042 [facility] BACTERIAL 0 INRFOOD INC INRFOOD INC QUANTTATI VE COLONY COUNT URINE CULTURE 88537 [facility] BCT 0 [place] INC INRFOOD INC ISOL&PRSM PTV ID ISOLATE EA URINE STANDARD K0001 GEO GEO GigaTrustCHAI 0 CO [facility] R [facility] URINLS 85900 EHSAN EHSAN DIP 0 PAB PAB STICK/TAB LET REAGNT NON-AUTO MICRSCPY RADEX 68597 BREATHIT HOLT A SPINE 0 [facility] THORACIC IMAGING MINIMUM 4 CENT VIEWS RADEX 88443 BREATHIT HOLT A SPINE 0 [facility] LUMBOSACR IMAGING AL CENT MINIMUM 4 VIEWS CULTURE 96386 [facility] BCT 0 [place] INC INRFOOD INC ISOL&PRSM PTV ID ISOLATE EA URINE CULTURE 89003 [facility] BACTERIAL 0 [employer] QUANTTATI VE COLONY COUNT URINE STANDARD [...] MEDI CO MEDI R [facility] COMPREHEN 56702 [facility] SIVE 9 [facility] METABOLIC PANEL BLOOD 00926 [facility] COUNT 9 [facility] COMPLETE AUTO&[place] [address] [facility] THYROID 9 [facility] STIMULATI NG HORMONE TSH LIPID 78065 [facility] PANEL 9 [facility] MRI 23411 GRAM HOLT, A SPINAL 9 RESOURCES R CANAL CERVICAL W/O CONTRAST MATRL RADEX 99458 [facility] SPINE 1 8 MED CTR MED CTR VIEW SPECIFY LEVEL RADEX 81599 [facility] FINGR 8 MED CTR MED CTR MINIMUM 2 VIEWS INCI 8605 [facility] W/REMOVAL 8 MED CTR MED CTR FB/DEVICE FROM SKIN & SUBQ TISSUE GENERAL 77645 [facility] HEALTH 8 MED CTR MED CTR PANEL RADEX 20677 BREATHIT PAMPATI, HIPS 8 [facility] BILATERAL IMAGING 2 VIEWS CENTER ANTEROPOS T PELVIS ECG 80090 [place] ROUTINE 8 MED CTR MED CTR ECG W/LEAST 12 LDS TRCG ONLY W/O I&R CREATINE 67539 [place] KINASE 8 MED CTR MED CTR TOTAL CREATINE 23326 [place] KINASE MB 8 MED CTR MED CTR FRACTION ONLY BLOOD 40696 [place] COUNT 8 MED CTR MED CTR COMPLETE AUTO&AUTO DIFRNTL WBC COMPREHEN 20337 [place] SIVE 8 MED CTR MED CTR METABOLIC PANEL COLLECTIO 67637 [place] N VENOUS 8 MED CTR MED CTR BLOOD VENIPUNCT URE ECHO 25494 APPALACHI PALIWAL, TRANSTHOR 8 AN HEART V[facility] H C R-T 2D CENTER W/WO M-MODE REC F-UP/LMTD DOP 51404 APPALACHI PALIWAL, ECHOCARD 8 [facility] COLOR CENTER FLOW VELOCITY MAPPING DOP 59532 [facility] ECHOCARD 8 AN HEART [facility] H PULSE CENTER WAVE W/SPECTRA L F-UP/LMTD STD OBSERVATI 56486 [facility] RICE, ON CARE 8 FAMILY CASA Y DISCHARGE PRACTICE CTR MANAGEMEN T Encounters Encounter Start End Date Code Location Performer Type Date [facility] - 6 6 [facility] 6 6 [facility] EMER[facility]ENCY 30058 TAVO 6 6 [facility] DEPARTMEN [facility] T VISIT LOW/MODER SEVERITY EMERGENCY 19401 HARRISON LERMA 6 6 PHYSICIAN FOR DEPARTMEN S, PLL[facility] T VISIT HIGH/URGE NT SEVERITY HOSPITAL TAVO - 6 6 [facility] OFF[facility] 80314 [facility] 6 6 MEDICAL ABD T VISIT 5 SERV MINUTES FOUNDATIO [facility] T OFFICE 70109 Eduardo [facility] 6 6 GAYATRI ART T VISIT PSC 15 MINUTES OFFICE 98753 [facility] 5 5 MEDICAL T VISIT SERV 10 FOUNDATIO MINUTES [facility] - 5 5 Y [facility] T OFF[facility] 21558 [facility] 5 5 MEDICAL T VISIT SERV 15 FOUNDATIO MINUTES [facility]IVERS[facility] - 5 5 [facility] - 4 4 Y [facility] IN[facility] 4 4 [facility] UNIVERSIT [facility] 4 4 Y [facility] 4 4 [facility] CARDINAL - 4 4 [facility] UNIVERSIT [facility] 4 4 Y [facility] T OFFICE 65107 [facility] 4 4 MEDICAL T NEW 30 SERV MINUTES FOUNDATIO OFFICE 69245 [facility] 4 4 MEDICAL RAL T VISIT SERV 25 FOUNDATIO MINUTES OFFICE 27200 [facility] 4 4 MEDICAL PASHA T VISIT SERV 25 FOUNDATIO MINUTES OFFICE 14568 L[facility]LIE LALA [facility] 4 4 MEDICAL T VISIT SERV 15 FOUNDATIO MINUTES HOSPITAL TAVO - 4 4 [facility] 80728 LESLIE GORDON DEPT 4 4 MEDICAL MAT VISIT SERV HIGH FOUNDATIO SEVERITY& THREAT [facility] UNIVERSIT - 4 4 [facility] - OTHER 4 4 Y [facility] UNIVERSIT [facility] 4 4 [facility] - 4 4 [facility] - 3 3 Y [facility] T OFFICE 51628 LESLIE JOHNSON OUTPATIEN 3 3 MEDICAL ELSA T NEW 30 SERV MINUTES FOUNDATIO EMERGENCY 29179 [place] FARH[place] DEPT 3 3 MEDICAL PAMELA VISIT SERV HIGH FOUNDATIO SEVERITY& THREAT [facility] UNIVERSIT - 3 3 Y [facility] T EMERGENCY 21945 UNIVERSIT 3 3 Y [facility] T VISIT HIGH/URGE NT SEVERITY OFFICE 32666 [place] TOBY OUTPATIEN 3 3 MEDICAL JR DAMIAN T NEW 20 SERV MINUTES [facility] UNIVERSIT - 3 3 Y [facility] T OFFICE 75485 [facility] 3 3 MEDICAL ABD T VISIT SERV 25 FOUNDATIO MINUTES OFFICE 63211 [facility] 3 3 Y T VISIT 5 [facility] TAVO - 3 3 [facility] T Emergency RAYSHAWN Jain MD (ER) 3 18:49 3 20:35 [facility] EMERGENCY 98774 JAMES SMART DEPT 3 3 EMERGENCY VISIT SERVICES HIGH SEVERITY& THREAT [facility] EMERGENCY 98001 TAVO 3 3 [facility] T VISIT LOW/MODER SEVERITY [facility] TAVO - 3 3 [facility] T OFFICE 19883 [facility] 3 3 Y T VISIT 5 [facility] - 3 3 Y [facility] T OFFICE 92270 [place] ALMARYARI OUTPATIEN 3 3 MEDICAL ABD T VISIT SERV 25 FOUNDATIO MINUTES OFFICE 12816 [facility] 3 3 Y T VISIT HOSPITAL 15 MINUTES HOSPITAL UNIVERSIT - 3 3 [facility] - 2 2 Y [facility] T OFFICE 70647 Eduardo BUNCH OUTPATISHERYL 2 2 GAYATRI ART T VISIT PSC 15 MINUTES EMERGENCY 32170 JAMES SMART DEPT 2 2 EMERGENCY VISIT SERVICES HIGH SEVERITY& THREAT [facility] TAVO - 2 2 [facility] T EMERGENCY 64768 TAVO 2 2 [facility] T VISIT MODERATE SEVERITY OFFICE 15893 Eduardo BUNCH OUTPATISHERYL 2 2 GAYATRI ART T VISIT PSC 15 MINUTES OFFICE 73306 LESLIE RAZA OUTPATIEN 2 2 MEDICAL ABD T VISIT SERV 15 FOUNDATIO MINUTES OFFICE 82381 [place] OUTPATI[place] 2 2 MEDICAL LEEANN T VISIT SERV 15 FOUNDATIO MINUTES [facility] UNIVERSIT - 2 2 [facility] [place]ICE 01591 [place] OUTPATI[place] 2 2 MEDICAL LEEANN T VISIT SERV 15 FOUNDATIO MINUTES OFFICE 79743 [place] ALHAJERI OUTPATIEN 2 2 MEDICAL ABD T VISIT SERV 15 FOUNDATIO MINUTES OFFICE 59437 Eduardo AGGARWAL 2 2 GAYATRI ART T NEW 20 PSC MINUTES [facility]OSP[facility] - [facility] 2 [facility] 2 [facility] T OFFICE 32732 LESLIE RAZA OUTPATIEN 2 2 MEDICAL ABD T NEW 45 SERV MINUTES [facility] LEEANN T VISIT SERV 15 FOUNDATIO MINUTES OFFICE 36113 [place] [facility] MEDICAL LEEANN T VISIT SERV 25 FOUNDATIO MINUTES OFFICE 34818 [facility] NEUMANNS PAB T VISIT EXTENDED 25 H MINUTES [facility] 1 1 [facility] T MEDICAL OFFICE 50109 [facility] 1 NEUMANNS PAB T VISIT EXTENDED 15 H MINUTES OFFICE 69340 [facility] 1 NEUMANNS PAB T VISIT EXTENDED 15 H MINUTES OFFICE 40226 [facility] 1 NEUMANNS PAB T VISIT EXTENDED 25 H MINUTES OFFICE 37832 [facility] 1 NEUMANNS PAB T VISIT EXTENDED 15 H MINUTES OFFICE 95329 [facility] 1 NEUMANNS PAB T VISIT EXTENDED 25 H MINUTES [facility] 04433 [facility] 1 VASCULAR T VISIT SPECIALIS 25 TS MINUTES [facility] [place] [facility]: T [facility]E OFF[facility] 40290 [facility] 1 MEDICAL THO T NEW 45 SERV MINUTES [facility] OFFICE 69045 [facility] MED[facility] LEEANN T VISIT SERV 40 FOUNDATIO MINUTES EMERGENCY 94590 [place] [facility] 1 [facility] T VISIT MODERATE SEVERITY [facility] [place] [facility], OUTPATIEN ATTN: T DENE EMERGENCY 53531 [place] 1 1 [facility], DE[facility]MEN ATTN: T VISIT DENE HIGH/URGE NT SEVERITY [facility] [place] - [facility] 1 [facility], OUTPATIEN ATTN: [facility] [place] - [facility] 1 [facility], [facility]PATIEN ATTN: [facility] [place] [facility] 1 [facility], OUTPATIEN ATTN: T DENE OFFICE 00809 BRENDA ERNSPIKER OUTPATIEN 1 1 PHYSICIAN MAXINE T VISIT KATHERINE 10 MINUTES OFFICE 27776 EHSAN EHSAN OUTPATIEN 1 1 PAB PAB T VISIT 15 MINUTES OFFICE 12559 LESLIE BOOKERBIANCA OUTPATIEN 1 1 MEDICAL LEEANN T NEW 45 SERV MINUTES FOUNDATIO OFFICE 91859 BRENDA PAYTONROBERWI OUTPATIEN 1 1 ENT TAR T NEW 45 CLINIC MINUTES [facility] OFFICE [id number] BRENDA CHOWDHURYSPIKER OUTPATIEN 1 1 PHYSICIAN MAXINE T VISIT KATHERINE 10 MINUTES [facility] [place] [facility], OUTPATIEN ATTN: T DENE OFFICE 23522 BRENDA ERNSPIKER OUTPATIEN 1 1 PHYSICIAN MAXINE T NEW 20 KATHERINE MINUTES OFFICE 10960 EHSAN EHSAN OUTPATIEN 1 1 PAB PAB T VISIT 25 MINUTES OFFICE 47389 EHSAN EHSAN OUTPATIEN 1 1 PAB PAB T VISIT 25 MINUTES OFFICE 77814 EHSAN EHSAN OUTPATIEN 1 1 PAB PAB T VISIT 25 MINUTES [facility] [place] [facility]IEN ATTN: T [facility] OFFICE 89625 EHSAN EHSAN OUTPATIEN 0 0 PAB PAB T VISIT 25 MINUTES EMERGENCY 45968 [place] 0 0 [facility], DEPARTMEN ATTN: T VISIT [facility] MODERATE SEVERITY [facility] [place] [facility], OUTPATIEN ATTN: T [facility] [place] [facility] 0 [facility] OUTPATIEN T OFFICE [id number] EHSAN EHASN OUTPATIEN 0 0 PAB PAB T VISIT 25 MINUTES [facility] [place] [facility] [place] [facility] OUTPATI[facility] T OFFICE 95274 EHSAN EHSAN OUTPATIEN 0 0 PAB P[facility] T VISIT 25 MINUTES [facility] [place] [facility] OUTPATI[facility] T OFFICE 89123 EHSAN EHSAN OUTPATIEN 0 0 PAB PAB T VISIT 15 MINUTES OFFICE 78841 [facility] OUTPATIEN 0 0 [place] [facility] MINUTES [facility] [place] [facility] OUT[facility] T OFFICE 07511 EHSAN EHSAN OUTPATIEN 0 0 PAB PAB T VISIT 15 MINUTES OFFICE 99565 EHSAN EHSAN OUTPATIEN 0 0 [facility] T [facility]ISIT 25 MINUTES [facility] [place] [facility] [place] [facility] OUTPATI[facility] T OFFICE 73597 EHSAN EHSAN OUTPATIEN 0 0 PAB PAB T VISIT 25 MINUTES OFFICE 98881 EHSAN EHSAN OUTPATIEN 0 0 PAB PAB T VISIT 25 MINUTES OFFICE 30058 EHSAN EHSAN OUTPATIEN 0 0 PAB PAB T VISIT 15 MINUTES OFFICE 54319 EHSAN EHSAN OUTPATIEN 0 0 PAB PAB T VISIT 25 MINUTES OFFICE 98652 EHSAN EHSAN OUTPATIEN 0 0 PAB PAB T VISIT 25 MINUTES OFFICE 92982 EHSAN, HESAN, OUTPATIEN 9 9 SHAKIRA SHAKIRA T VISIT 15 MINUTES OFFICE 24958 EHSAN, EHSAN, OUTPATIEN 9 9 SHAKIRA SHAKIRA T VISIT 15 MINUTES OFFICE 47665 EHSAN, EHSAN, OUTPATIEN 9 9 SHAKIRA SHAKIRA T VISIT 25 MINUTES OFFICE 18296 EHSAN, EHSAN, OUTPATIEN 9 9 SHAKIRA SHAKIRA T VISIT 15 MINUTES OFFICE 52961 EHSAN, EHSAN, OUTPATIEN 9 9 SHAKIRA SHAKIRA T VISIT 25 MINUTES EMERGENCY 78425 [place] 8 8 [facility] DEPARTMEN T VISIT MODERATE SEVERITY [facility] - 8 8 MED CTR OUTPATIEN T EMERGENCY 18174 [facility] 8 8 [facility] EMERGENCY ASIF T VISIT PHYS INC M HIGH/URGE NT SEVERITY EMERGENCY 72993 [facility] 8 8 MED CTR DEPARTMEN T VISIT HIGH/URGE NT SEVERITY [facility] - 8 8 MED CTR OUTPATIEN T OFFICE 57335 EHSAN, EHSAN, OUTPATIEN 8 8 SHAKIRA SHAKIRA T VISIT 15 MINUTES OFFICE 82938 EHSAN, EHSAN, OUTPATIEN 8 8 SHAKIRA SHAKIRA T VISIT 15 MINUTES OFFICE 79676 TAINA LUTHER 8 8 [facility] NEW/ESTAB R PATIENT 40 MIN OFFICE 46125 EHSAN MOSER OUTPATIEN 8 8 SHAKIRA ROSENBERG T VISIT 15 MINUTES EMERGENCY 20026 ROSALINDA DUNN, 8 8 [facility] HIGH/URGE NT SEVERITY
--- OUTSIDE RECORDS SUMMARY | 2017-08-17 04:41 | External Medical Summary Rpt | CCD ---
Author Author , NAHID SWENSONINDIGO Address Unknown Phone [email or web address] Care Team Providers Care Checkman Name Role Phone A Karen MENDIETA MD PSC, Eduardo Unavailable Unavailable Karen MENDIETA MD PSC ABORDO MEETA, ABORDO Unavailable Unavailable MEETA ALHAJERI ABD, Unavailable Unavailable ALHAJERI ABD [facility] Unavailable Unavailable MEDICAL, [facility] AYACH SEGUNDO, AYACH SEGUNDO Unavailable Unavailable BALLERT ELSA, BALLERT Unavailable Unavailable ELSA ERWIN FRA, ERWIN Unavailable Unavailable FRA BERNERT CHARLOTTE, BERNERT Unavailable Unavailable CHARLOTTE BESSON JULIO C, BESSON Unavailable Unavailable JULIO C NIKITA SHADIA, NIKITA Unavailable Unavailable SHADIA HADLEY ALL, HADLEY ALL Unavailable Unavailable [facility] Unavailable Unavailable IMAGING CENT, [facility]available Unavailable SERVICE, [facility] Unavailable Unavailable SERVICE, [facility] BRUENING JR FADUMO, Unavailable Unavailable BRUENING JR FADUMO CALTRIDER RAN, Unavailable Unavailable CALTRIDER RAN [facility] Unavailable Unavailable HOSP, [facility] Unavailable Unavailable CAMPUS, [facility] CELLAROSI - YORBA, Unavailable Unavailable ASIF M, CELLAROSATNAM - EWELINARBA, ASIF M [facility] Unavailable Unavailable [facility], [facility] Unavailable Unavailable [facility], [facility] TOBY DAMIAN, Unavailable Unavailable TOBY JR DAMIAN [facility] SHADIA, Unavailable Unavailable [facility] COLTEN GALLEGOS, COLTEN GALLEGOS Unavailable Unavailable CHELI TALAT, Unavailable Unavailable CHELI TALAT GORDON MAT, GORDON Unavailable Unavailable MAT DORITY SRI, DORITY Unavailable Unavailable SRI EUGENIA GABBIE, EUGENIA Unavailable Unavailable GABBIE ERLANDSON MAXINE, Unavailable Unavailable ERLANDSON MAXINE ERNSPIKER MAXINE, Unavailable Unavailable ERNSPIKER ELTON DEL ANGEL, Unavailable Unavailable ELTON DUNN FRIED A, FRIED A Unavailable Unavailable [facility] CANDELARIO PASHA, CANDELARIO Unavailable Unavailable PASHA SORTO II ALA, SORTO II Unavailable Unavailable [facility] Unavailable Unavailable INC, [facility] Unavailable Unavailable HOSPITAL P, [facility] Unavailable Unavailable SPECIALISTS, [facility] MONTALVO JULIO C, MONTALVO JULIO C Unavailable Unavailable [facility] Unavailable Unavailable PSC, [facility] Unavailable Unavailable KATHERINE, [facility] KATHERINE SADA AAR, SADA Unavailable Unavailable AAR BRYSON JR RAL, BRYSON Unavailable Unavailable JR RAL [facility] Unavailable Unavailable IMAGING ASS, [facility] Unavailable Unavailable LLC, [facility] KILPELA JEA, KILPELA Unavailable Unavailable JEA USHA LEEANN, USHA LEEANN Unavailable Unavailable CLAUDETTE C, CLAUDETTE C Unavailable Unavailable [facility], [facility] Un[facility] Un[facility] [place] [facility] Unavailable Unavailable ATTN: [facility], [facility], ATTN: [facility]available Unavailable HOLDINGS, [facility] Unavailable Unavailable [facility]INGS, [facility], Unavailable Unavailable [facility], Unavailable Unavailable [facility] LINDSEY KAYLYN, LINDSEY KAYLYN Unavailable Unavailable LUTZ TRA, LUTZ TRA Unavailable Unavailable [facility] Unavailable Unavailable SERVICES, [facility] FARHAT SANTIAGO, FARHAT Unavailable Unavailable PAMELA EHSAN PAB, EHSAN Unavailable Unavailable PAB EHSAN PAB, EHSAN Unavailable Unavailable PAB EHSAN, SHAKIRA, Unavailable Unavailable EHSAN, SHAKIRA AUGUSTE JUS, Unavailable Unavailable AUGUSTE JUS RUBI JULIO C, RUBI JULIO C Unavailable Unavailable NOELLE BRILL YOL, Unavailable Unavailable NOELLE BRILL YOL LONG BRANT, LONG BRANT Unavailable [facility]available [facility] TSE DUN, TSE Unavailable Unavailable DUN OCTAVIA MICAELA, Unavailable Unavailable OCTAVIA MICAELA LEIDY DUANE, LEIDY DUANE Unavailable Unavailable PALIWAL, VIDHU H, Unavailable Unavailable PALIWAL, VIDHU H PAMPATI [facility], PAMPATI Unavailable Unavailable [facility] PAMPATI, MAHENDER, Unavailable Unavailable PAMPATI, MAHENDER [facility], Unavailable Unavailable PLLC, [facility], [...] Unavailable JEANNETTE MAT, JEANNETTE MAT Unavailable Unavailable [facility], Unavailable Unavailable [facility] BIANCA BRADSHAW, Unavailable Unavailable BIANCA BRADSHAW WALKER FOR, WALKER Unavailable Unavailable FOR YUENE JR THO, YUENE Unavailable Unavailable JR THO Purpose Continuity of Care Document - 12-18-2007 through 2016 Problems Code Diagnosis DOS Provider Status [id number] UNS OPEN 09-03-2016 [facility] INITIAL ENCOUNTER J449 CHRONIC 08-26-2016 [facility] P DISEASE UNS [id number] PAIN IN 08-26-2016 [facility] R05 COUGH 08-26-2016 [facility] R0602 SHORTNESS 08-26-[address] [place] [address] 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[facility] NONRUPTURED [facility] I739 PERIPHERAL 05-28-2016 [facility] DISEASE [facility] UNSPECIFIED H538 OTHER 05-23-2016 [facility] DISTURBANCE [facility] S H9313 TINNITUS 05-23-2016 [facility]AL [facility] R51 HEADACHE 05-23-2016 [facility] Q09855 PRIMARY 05-07-2016 [facility] T[facility] PSC SHOULDER Q45396 OTHER 05-07-2016 [facility] SYNOVITIS L [facility] AND [facility] PSC TENOSYNOVIT IS RIGHT SHOULDER P53133 PAIN IN 04-12-2016 [place] 22899 OSTEOARTHRO 06-14-2015 [facility] UNSPEC SERV GEN/LOC [facility]OUND[facility] PELV REGION&THIG H 15072 UNSPECIFIED 06-14-2015 [facility] ARTHROPATHY [facility] OTHER SPECIFIED SITES V4364 HIP JOINT 06-14-2015 [facility] BY OTHER MEANS 08118 DEGEN 12-07-2014 [facility] 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 V5481 AFTERCARE 12-07-2014 [place] [facility] FOLLOWING [facility] JOINT [facility] REPLACEMENT 24781 PRESSURE 11-26-2014 [facility] UNSPECIFIED MEDICAL SITE EQUIPME 7209 UNSPECIFIED 11-26-2014 [facility] INFLAMMATOR MEDICAL Y EQUIPME SPONDYLOPAT HY 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 FOLLOWING OTHER SURGERY 5990 URINARY 09-13-2014 [facility] INFECTION LA SITE NOT SPECIFIED 6798 OTHER 08-03-2014 [facility] SPECIFIED HEALTH ANEMIAS CAMPUS 13788 OTHER 08-03-2014 [facility] CHRONIC HEALTH PAIN CAMPUS 496 CHRONIC 08-03-2014 [facility] AIRWAY HEALTH OBSTRUCTION CAMPUS NEC 59583 MUSCLE 08-03-2014 [facility] WEAKNESS HEALTH (GENERALIZE CAMPUS D) 7812 ABNORMALITY 08-03-2014 [facility] 63557 UNSPECIFIED 08-03-2014 [facility] RETENTION HEALTH OF URINE CAMPUS 81964 UNSPECIFIED 08-03-2014 [facility] E 60173 OTH 07-28-2014 A Karen DELGADO MD PSC NS DUE INTERNAL JOINT PROSTHESIS 42281 PAIN IN 07-20-2014 [facility] PELVIC REGION AND THIGH 29191 UNSPECIFIED 07-17-2014 [facility] ARTHROPATHY [facility] PELVIC REGION AND THIGH 77323 NONTRAUMATI 07-17-2014 [place] [facility] RUPTURE SERV OF TENDONS [facility]AT[facility] OF BICEPS 7993 UNSPECIFIED 07-17-2014 [place] [facility] DEBILITY [facility] 2859 UNSPECIFIED 07-14-2014 [place] [facility] ANEMIA [facility] 7823 EDEMA 07-14-2014 [facility] V4365 KNEE JOINT 07-14-2014 [place] [facility]PLAC[facility] BY OTHER [facility]OUND[facility]IO MEANS 3384 CHRONIC 07-13-2014 [place] [facility] [facility] SYNDROME [facility] 77582 UNSPECIFIED 07-13-2014 [facility] CONSTIPATIO FOUND[facility] N 10992 PRESSURE 07-09-2014 [place] [facility] ULCER SERV BUTTOCK [facility] 82135 PRESSURE 07-09-2014 [facility] STAGE SERV II [facility]OUNDATIO 93720 GENERALIZED 07-09-2014 [place] [facility] [facility] 7292 UNSPECIFIED 07-08-2014 [place] [facility] NEURALGIA SERV NEURITIS [facility]OUNDAT[facility] AND RADICULITIS 1123 CANDIDIASIS 07-03-2014 [facility] 00892 OTHER 07-03-2014 [place] [facility] SPECIFIED SERV ERYTHEMATOU FOUNDATIO S CONDITION OTHER 61608 PRESSURE 07-03-2014 [place] [facility] LOWER SERV BACK FOUND[facility] 44016 PRESSURE 07-03-2014 [place] [facility] STAGE SERV I [facility]OUNDATIO 7140 RHEUMATOID 07-03-2014 [place] [facility] ARTHRITIS SERV [facility] 7820 DISTURBANCE 07-03-2014 [facility] V1302 PERSONAL 07-03-2014 [facility] UR[facility]ARY [facility] TRACT INFECTION V5789 OTHER 07-03-2014 [facility]CIF[facility] ION PROCEDURE OTHER 11027 PRIMARY LOC 06-30-2014 [facility] OSTEOARTHRO FOUNDATIO SIS PELVIC REGION&THIG H 98247 CHEST PAIN 06-30-2014 [place] [facility] UNSPECIFIED SERV FOUNDATION V4589 OTHER 06-30-2014 [place] [facility] POSTSURGICA SERV L STATUS [facility]AT[facility] OTHER V5881 FITTING AND 06-30-2014 [place] [facility] ADJUST[facility] OF [facility] VASCULAR CATHETER 2102 BENIGN 06-28-2014 [place] [facility] NEOPLASM OF SERV MAJOR [facility] SALIVARY GLANDS 7840 HEADACHE 06-28-2014 [facility] 14640 OTHER 06-28-2014 [place] [facility] DYSPNEA AND SERV [facility] RESPIRATORY ABNORMALITI ES 7295 PAIN IN 06-24-2014 [place] [facility] SOFT [facility] TISSUES OF FOUNDATION LIMB 85674 SHORTNESS 06-24-2014 [place] [facility] OF BREATH SERV [facility] 88027 OTHER 06-24-2014 [place] [facility] NONSPECIFIC SERV ABNORMAL [facility] FINDING OF LUNG FIELD 7881 DYSURIA 06-16-2014 [facility] 4329 UNSPECIFIED 06-06-2014 [facility] INTRACRANIA L HEMORRHAGE V5863 LONG-TERM 06-06-2014 [facility] USE OF HOSPITAL ANTIPLATELE T/ANTITHROM BOTIC 38696 UNSPECIFIED 05-03-2014 [place] [facility] TINNITUS SERV [facility] 43676 UNSPECIFIED 05-03-2014 [facility] SENSORINEUR [facility] AL HEARING LOSS 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 75402 SPINAL STEN 04-21-2014 [place] [facility] LUMB REG SERV W/O [facility] NEUROGENIC CLAUDICATIO N 7243 SCIATICA 04-21-2014 [facility] 5967 HEMORRHAGE 01-03-2014 [place] [...] [place] [facility] DISORDER SERV OF BLADDER FOUNDAT[facility] 70738 HEMATURIA 01-02-2014 [place] [facility] UNSPECIFIED SERV [facility] 6238 OTHER 01-02-2014 [facility] SPECIFIED [facility] NONINFLAMMA SERVICE TORY DISORDER VAGINA 6259 UNSPEC 01-02-2014 [place] [facility] SYMPTOM SERV ASSOC [facility] W/FEMALE GENITAL ORGANS 90912 ABDOMINAL 01-02-2014 [facility] PAIN, AMBULANCE UNSPECIFIED SERVICE SITE 5952 OTHER 12-16-2013 [place] [facility] CHRONIC [facility] CYSTITIS [facility] 5959 UNSPECIFIED 12-16-2013 [place] [facility] CYSTITIS [facility] 94061 OTHER 12-16-2013 [place] [facility] SPECIFIED SERV DISORDERS FOUNDATIO OF BLAD[place] 27564 GROSS 12-16-2013 [facility] HEMATURIA SERVICES 4292 UNSPECIFIED 12-13-2013 [facility] CARDIOVASCU LAR DISEASE V7283 OTHER 12-13-2013 [facility] PRE-OPERATI VE EXAMINATION V7284 UNSPECIFIED 12-13-2013 [facility] PRE-OPERATI FOUNDATION VE EXAMINATION 6256 FEMALE 11-24-2013 [facility] INCONTINENC E 87581 URGE 11-24-2013 [facility] E 90696 INCONTINENC 11-24-2013 [facility] E WITHOUT HOSPITAL SENSORY AWARENESS 5539 ABHISHEK UNS 11-15-2013 [facility] SITE ABD SERV CAV W/O FOUNDATIO MENTION OBST/GANGRE N 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 INTESTINE 63744 DIVERTICULO 11-15-2013 [facility] COLON 12828 CALCU 11-15-2013 [facility] W/O MENTION CHOLECYST/O BST 7935 NONSPECIFIC 11-15-2013 [facility] FINDING RAD & OTH EXAM ORGAN 18748 ANEURYSM OF 11-09-2013 [facility] HOSPITAL SPECIFIED ARTERY 17733 OTHER 10-06-2013 [place] [facility] URINARY SERV INCONTINENC FOUNDATIO E 22765 POLYURIA 10-01-2013 [facility] 84762 DEHYDRATION 09-16-2013 [facility] 7226 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 UNSPEC V8801 ACQUIRED 09-16-2013 [facility] ABSENCE OF HOSPITAL BOTH CERVIX AND UTERUS 89599 MALIHA 08-10-2013 [facility] MIGRAINE SERV NEC W/O FOUNDATIO INTRACT W/O STAT MIGRNOSUS 26276 NUCLEAR 08-10-2013 [facility] SCLEROSIS SERV [facility] 2382 NEOPLASM OF 08-09-2013 [facility] BEHAVIOR OF SKIN 02421 OTHER 08-09-2013 [facility] KERATOSIS V5866 LONG-TERM 07-15-2013 [facility] USE OF HOSPITAL ASPIRIN 2410 NONTOXIC 05-26-2013 [facility] 2409 GOITER, 05-05-2013 [place] [facility] UNSPECIFIED SERV FOUNDATIO 4371 OTH 05-05-2013 [facility] GENERALIZED SERV ISCHEMIC FOUNDATIO CEREBROVASC ULAR DISEASE 4429 OTHER 05-04-2013 [facility] UNSPECIFIED SITE 2559 UNSPECIFIED 11-19-2012 [facility] GL[place]S 2558 OTHER 10-05-2012 [facility] DISORDERS OF ADRENAL GLANDS 5718 OTHER 10-05-2012 [facility] NONALCOHOLI C LIVER DISEASE 1120 CANDIDIASIS 09-25-2012 A Karen FABIAN MD PSC 30990 OSTEOARTHRO 09-14-2012 [facility] UNSPEC EMERGENCY WHETHER SERVICES GEN/LOC UNSPEC SITE 7220 DISPLCMT 09-14-2012 [facility] MEDICAL INTERVERT IMAGING ASS DISC WITHOUT MYELOPATHY 7224 DEGENERATIO 09-14-2012 [facility] MEDICAL CERVICAL IMAGING ASS INTERVERTEB RAL DISC 8470 NECK SPRAIN 09-14-2012 [facility] 7821 RASH AND 09-07-2012 A Karen SUAZO MD [facility] NONSPECIFIC SKIN ERUPTION 7842 SWELLING 08-24-2012 [facility] MASS OR SERV LUMP IN FOUNDATIO HEAD AND NECK 683 ACUTE 06-22-2012 [facility] LYMPHADENIT SERV IS FOUNDATIO 7242 LUMBAGO 06-15-2012 Eduardo MENDIETA MD PSC 2469 UNSPECIFIED 05-15-2012 [facility] DISORDER [facility] OF THYROID FOUNDAT[facility] 25101 COR 05-15-2012 [facility] ATHEROSLERO SERV UNSPEC FOUNDATIO TYPE [facility]SEL [facility]NN T 10451 CORONARY 05-15-2012 [facility] CORONARY ARTERY 4779 ALLERGIC 05-15-2012 [place] [facility] RHINITIS SERV CAUSE FOUNDAT[facility] UNSPECIFIED 5533 DIAPHRAGMAT 05-15-2012 [facility] W/O [facility] MENTION OBSTRUCTION /GANGREN 7231 CERVICALGIA 05-15-2012 [facility] 36215 DYSPHONIA 05-15-2012 [facility] 7856 ENLARGEMENT 05-15-2012 [facility] NODES 01291 OTHER VOICE 01-27-2012 [facility] AND SERV RESONANCE [facility] DISORDERS 2720 PURE 10-01-2011 [facility]PERCHOLES [facility] TEROLEMIA 2724 OTHER AND 10-01-2011 [facility] UNSPECIFIED NEUMANNS EXTENDED H HYPERLIPIDE MARJORIE 3559 MONONEURITI 10-01-2011 [facility] S OF NEUMANNS UNSPECIFIED EXTENDED H SITE 4910 SIMPLE 10-01-2011 [facility] CHRONIC NEUMANNS BRONCHITIS EXTENDED H 57668 UNSPECIFIED 10-01-2011 [facility] NEUMANNS ARTHROPATHY EXTENDED H SITE UNSPECIFIED V5861 LONG-TERM 10-01-2011 [facility]CURRENT[facility] USE OF ANTICOAGULA NTS V6759 OTHER 10-01-2011 [facility] FOLLOW[facility]UP [facility] EXAMINATION OTHER 4240 MITRAL 09-10-2011 [facility] DIS[facility] MEDICAL 11013 OTHER CHEST 09-10-2011 [facility] MEDICAL 66808 ABDOMINAL 09-10-2011 RADI[facility] PA[facility], SERVICES GENERALIZED 31554 ABDOMINAL 09-10-2011 [facility] OTHER REGIONAL SPECIFIED MEDICAL SITE V641 SURG/OTH 09-10-2011 [facility] PROC NOT REGIONAL DONE MEDICAL BECAUSE CONTRAINDIC ATION 4659 ACUTE URIS 08-27-2011 [facility] NEUMANNS UNSPECIFIED EXTENDED H SITE 65460 OTHER 08-05-2011 NEURODIAGNO MALAISE AND STICPSC FATIGUE V5883 ENCOUNTER 06-21-2011 [facility] THERAPEUTIC DRUG MONITORING V7109 OBSERVATION 06-21-2011 [facility] OF OTHER DIAGNOSTICS SUSPECTED MENTAL CONDITION 0539 HERPES 05-23-2011 [facility]ER NEUMANNS WITHOUT EXTENDED H MENTION OF COMPLICATIO N 7244 THORACIC/JAY 05-23-2011 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 [facility] OR LARYNX 4786 EDEMA OF 05-14-2011 [facility] 4241 AORTIC 04-25-2011 [facility]ORD[facility] 99994 PRECORDIAL 04-25-2011 [facility] CUTTER V5869 LONG-TERM 04-18-2011 [facility] USE OF OTHER MEDICATIONS 2278 SHAYNE 04-06-2011 [place] [facility] [place] [facility] GLANDS&RELA CIERA STRCT 87083 JAW PAIN 04-06-2011 [facility] MED CTR, ATTN: DENE 2374 NEOPLASM 03-27-2011 [place] [facility] UNCERTAIN SERV BHV FOUNDATIO OTH&UNSPEC ENDOCRN GLANDS 4019 UNSPECIFIED 03-13-2011 [facility] ESSENTIAL MED CTR, HYPERTENSIO ATTN: DENE N 42061 OTHER 03-13-2011 [facility] SPECIFIED MED CTR, DISORDER OF ATTN: DENE INTESTINES 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 5789 UNSPECIFIED 03-07-2011 [facility] HEMORRHAGE PHYSICIAN OF KATHERINE GASTROINTES TINAL TRACT 5781 BLOOD IN 03-04-2011 [facility] 2350 NEOPLASM 02-18-2011 [facility] UNCERTAIN PHYSICIAN BEHAVIOR KATHERINE MAJOR SALIV GLANDS 27868 TOX DIFFUSE 02-18-2011 [facility] W/O CLINIC PSC THYROTOX CRISIS/STOR M 4780 HYPERTROPHY 02-18-2011 [facility] PSC TURBINATES 99130 DYSPHAGIA 02-18-2011 [facility] UNSPECIFIED CLINIC PSC 2397 NEOPLSM UNS 02-07-2011 [facility] NATR MED CTR, ENDOCRN ATTN: DANIEL GLND&OTH PART NERV SYS 7062 SEBACEOUS 02-01-2011 E[facility] PAB CYST 23287 EFFUSION OF 12-03-2010 NEURODIAGNO SHOULDER [facility] JOINT 12718 PAIN IN 12-03-2010 NEURODIAGNO JOINT, [facility] SHOULDER REGION 66838 STIFFNESS 12-03-2010 NEURODIAGNO OF JOINT [facility] SHOULDER REGION 17785 OTHER 11-08-2010 [facility] SPECIFIED MEDI ARTHROPATHY [facility] SITE UNSPECIFIED 48937 LOC 10-04-2010 [facility] OSTEOARTHRO MED CTR, S NOT SPEC ATTN: EVERE WHETHER PRIM/SEC HAND 11053 OSTEOARTHRO 10-04-2010 [facility] UNSPEC [facility] GEN/LOCALIZ ED HAND 70418 SWELLING OF 10-04-2010 [facility] LIMB MED CTR, ATTN: DANIEL 9158 OTH&UNSPEC 10-04-2010 [facility] SUP INJURY MED CTR, FINGER ATTN: DANIEL WITHOUT MENTION INF 52850 OTHER&UNSPE 09-21-2010 [facility] C DISC MED CTR, DISORDER ATTN: DANIEL UNSPEC REGION V571 OTHER 09-21-2010 [facility] PHYSICAL MED CTR, THERAPY ATTN: DANIEL 7212 THORACIC 09-04-2010 [facility] SPONDYLOSIS MED CTR WITHOUT MYELOPATHY 7241 PAIN IN 09-04-2010 [facility] THORACIC MED CTR SPINE 7245 UNSPECIFIED 09-04-2010 [facility] PAB BACKACHE 40439 PAINFUL 08-25-2010 [facility] RESPIRATION MED CTR 92619 HERPES 08-24-2010 [facility] PAB ZOSTER KERATOCONJU NCTIVITIS V574 ORTHOPTIC 08-21-2010 [facility] TRAINING MED CTR 63273 PAIN IN 07-19-2010 E[facility] PAB JOINT, LOWER LEG 47317 GALLSTONE 06-13-2010 [facility] 30269 DISORDER OF 06-06-2010 [facility] UNSPECIFIED CENT 16009 ACUTE 05-17-2009 E[facility]AN, LARYNGITIS, SHAKIRA WITHOUT MENTION OF OBSTRUCTIO 7234 BRACHIAL 03-02-2009 [facility], NEURITIS OR SHAKIRA RADICULITIS NOS 9156 FINGER SUP 09-07-2008 [place] [facility] W/[facility] CODY MED CTR OPEN WOUND&W/O MENTION INF 66624 NAUSEA 12-19-2007 [facility] Procedures Procedure DOS Code Location Performer Comment DEBRIDEME 06835 [facility] VO NT OPEN 6 [facility] WOUND 20 INC INC SQ CM/< DEBRIDEME 97464 [facility] VO NT OPEN 6 [facility] WOUND 20 INC INC SQ CM/< PHYSICAL 05947 [facility] VO THERAPY 6 [facility] EVALUATIO INC INC N COMPREHEN 30646 [facility] VO SIVE 6 [facility] METABOLIC INC INC PANEL CREATINE 40912 [facility] VO KINASE MB 6 [facility] FRACTION INC INC ONLY CREATINE 86902 T[facility] VO KINASE 6 [facility] TOTAL INC INC ECG 61003 [facility] VO ROUTINE 6 [facility] ECG INC INC W/LEAST 12 LDS TRCG ONLY W/O I&R RADIOLOGI 98176 [facility] ALL C 6 MEDICAL EXAMINATI IMAGING ON K[place] 3 [place] [address] [facility] VO TROPONIN 6 [facility] HOS[facility]OS[facility] QUANTITAT INC INC [place] BLOOD 82427 [facility] VO COUNT 6 [facility]OS[facility] COMPLETE INC INC AUTO&AUTO DIFRNTL WBC RADIOLOGI 58722 [facility] ALL C EXAM 6 MEDICAL CHEST 2 IMAGING VIEWS ASS FRONTAL&L ATERAL ECG 02596 [facility] REGALADO ROUTINE 6 [facility] W/LEAST P 12 LDS I&R ONLY ANGIOGRAP 51931 [place] [facility] HY 6 MEDICAL ABD EXTREMITY SERV FOUNDATIO UNILATERA N L RS&I SLCTV 18932 [place] [facility] CATH 6 MEDICAL ABD CAROTID/I SERV NNOM ART FOUNDATIO ANGIO N INTRCRANL ART ANESTHESI 57602 [place] DORITY A 6 MEDICAL RSI DIAGNOSTI SERV C FOUNDATIO ARTERIOGR N APHY/VENO GRAPH 3D 28017 [place] RANDYJERI RENDERING 6 MEDICAL ABD SERV W/INTERP& FOUNDATIO POSTPROC N DIFF WORK STATION LOCM Q9967 [facility] [phone] Y Y MG/ML HOSPITAL HOSPITAL IODINE CONCENTRA TION PER ML CREATININ 06262 [facility] E BLOOD 6 Y [place] [facility] [place] [address] LESLIE RASLAU ANGIOGRAP 6 MEDICAL FLA HY HEAD SERV W/CONTRAS FOUNDATIO T/NONCONT N RAST THERAPEUT 97051 PROFESSIO CROSSFIEL IC PX 1/> 6 [facility] EACH 15 PSC MIN EXERCISES THERAPEUT 31412 PROFESSIO CROSSFIEL IC PX 1/> 6 [facility] EACH 15 PSC MIN EXERCISES PHYSICAL 63078 PROFESSIO CROSSFIEL THERAPY 6 NAL REHAB D SHADIA EVALUATIO ASSOC N PSC RADEX 67398 [facility] ALL SHOULDER 6 MEDICAL 1 VIEW IMAGING ASS RADEX 63816 TAVO MCGILLON SHOULDER 6 MEM H[facility]P COMPLETE INC INC MINIMUM 2 VIEWS RADEX 57968 [facility] 5 MEDICAL Y JUS BILATERAL SERV 2 VIEWS FOUNDATIO ANTEROPOS N T PELVIS RADIOLOGI 91334 [facility] 5 Y Y [facility] ON PELVIS 1/2 VIEWS RADEX HIP 04940 [facility] 5 Y Y [facility] COMPLETE MINIMUM 2 VIEWS HOS BED E0260 [facility] HOWARD SEMI-ELEC [...] EQUIPME EQUIPME RAIL W/MATTRSS PWR E0181 [facility] CLAYRELL PRESSURE 4 HOME HOME REDUCING MEDICAL MEDICAL MATTRESS EQUIPME EQUIPME OVERLY/PA D PUMP SLCTV 56997 [facility] CATH 4 Y Y CAROTID/I [facility] NNOM ART ANGIO INTRCRANL ART PROTHROMB 35974 [facility] IN TIME 4 Y Y HOSPITAL HOSPITAL INJECTION J1644 [facility] HEPARIN 4 Y Y [facility]IUM [facility] PER 1000 UNITS BLOOD 22888 [facility] COUNT 4 Y Y COMPLETE [facility] AUTOMATED GUIDE C1769 [facility] WIRE 4 Y Y HOSPITAL HOSPITAL INJECTION J3010 [facility] FENTANYL 4 Y Y CITRATE [facility] 0.1 MG INFUSION J7030 [facility] NORMAL 4 Y Y SALINE [facility] SOLUTION 1000 CC CLOSURE C1760 [facility] DEVICE 4 Y Y VASCULAR [facility] INTRDUCR/ C1894 [facility] SHEATH 4 Y Y NOT GUID [facility] INTRACARD EP NON-LASR PLCMT [id number] [facility] OCCL DEVC 4 Y Y HOSPITAL HOSPITAL IRENE/ART POST SURG/INTR VNL PROC US VASC 40720 [facility] ACCESS 4 Y Y SITS VSL [facility] PATENCY NDL ENTRY COMPREHEN 38384 [facility] SIVE 4 Y Y METABOLIC [facility] PANEL SLCTV 69958 [facility] CATH 4 Y Y INTRNL [facility] CAROTID ART ANGIO INTRCRNL ART LOCM Q9967 [facility] [phone] 4 Y Y MG/ML [facility] IODINE CONCENTRA TION PER ML INJECTION J0330 [facility] 4 Y Y SUCCINYLC [facility] HOLINE CHLORIDE UP TO 20 MG ANESTHESI 02384 [place] RAMAIAH A 4 MEDICAL DIN CAROTID/C SERV ORONARY FOUNDATIO THER N IVNTL RAD 3D 06810 [facility] RENDERING 4 Y Y HOSPITAL HOSPITAL W/INTERP& POSTPROC DIFF WORK STATION SUSCEPTIB 15761 COMBINED COMBINED ILITY 4 PHYSICIAN PHYSICIAN STUDY S LA S LA ANTIMICRO BIAL DISK METHOD CULTURE 66810 COMBINED COMBINED BACTERIAL 4 PHYSICIAN PHYSICIAN S LA S LA QUANTTATI VE COLONY COUNT URINE URNLS DIP 03287 COMBINED COMBINED 4 PHYSICIAN PHYSICIAN STICK/TAB S LA S LA LET REAGENT AUTO MICROSCOP Y PWR E0181 [facility] PRESSURE 4 HOME HOME REDUCING MEDICAL MEDICAL MATTRESS EQUIPME EQUIPME OVERLY/PA D PUMP HOS BED E0260 [facility] SEMI-ELEC 4 HOME HOME W/ANY MEDICAL MEDICAL TYPE SIDE EQUIPME EQUIPME RAIL W/MATTRSS WHL ATTCH E0155 [facility] RIGD 4 HOME HOME PICK-UP MEDICAL MEDICAL WALK-PAIR EQUIPME EQUIPME SEAT ATTCH WALK SBSQ 98682 A C [facility] 4 [facility] PSC CARE/DAY E/M STABLE 10 MIN SBSQ 78062 A C [facility] 4 [facility] PSC CARE/DAY E/M STABLE 10 MIN RADEX HIP 09843 [facility] 4 Y Y [facility] L 1 VIEW RADIOLOGI 90724 [facility] 4 Y Y [facility] ON PELVIS / [facility] 52755 [facility] 4 MEDICAL NAN DAY SERV MANAGEMEN FOUNDATIO T 30 MIN/< SBSQ 32277 [place] [address] MEDICAL [place] CARE/DAY SERV 25 FOUNDATIO MINUTES SBSQ 53201 [place] [address] MEDICAL NAN CARE/DAY SERV 25 FOUNDATIO MINUTES SBSQ 76761 [place] [address] MEDICAL NAN CARE/DAY SERV 25 FOUNDATIO MINUTES SBSQ 01447 [place] [address] MEDICAL NAN CARE/DAY SERV 25 FOUNDATIO MINUTES SBSQ 92021 [place] [address] MEDICAL NAN CARE/DAY SERV 25 FOUNDATIO MINUTES SBSQ 96566 [place] [address] MEDICAL NAN CARE/DAY SERV 25 FOUNDATIO MINUTES SBSQ 45464 [place] [address] MEDICAL MAXINE CARE/DAY SERV 25 FOUNDATIO MINUTES SBSQ 38052 [facility] 4 MEDICAL KER RAN CARE/DAY SERV 25 FOUNDATIO MINUTES SBSQ 17246 [facility] 4 MEDICAL KER RAN CARE/DAY SERV 25 FOUNDATIO MINUTES SBSQ 96149 [facility] 4 MEDICAL NAN CARE/DAY SERV 25 FOUNDATIO MINUTES SBSQ 34493 [place] [address] MEDICAL NAN CARE/DAY SERV 25 FOUNDATIO MINUTES SBSQ 12002 [place] [address] MEDICAL NAN CARE/DAY SERV 25 FOUNDATIO MINUTES SBSQ 95482 [place] [address] MEDICAL NAN CARE/DAY SERV 25 FOUNDATIO MINUTES DUP-SCAN 84067 EUGENIA EUGENIA XTR VEINS 4 GABBIE GABBIE COMPLETE BILATERAL STUDY SBSQ 98885 [place] [address] MEDICAL MICAELA CARE/DAY SERV 35 FOUNDATIO MINUTES SBSQ 94823 [place] [address] MEDICAL ALA CARE/DAY SERV 35 FOUNDATIO MINUTES N INITIAL 75273 [place] [address] MEDICAL MICAELA CARE/DAY SERV 70 FOUNDATIO MINUTES SBSQ 35632 [place] [address] MEDICAL ALA CARE/DAY SERV 35 FOUNDATIO MINUTES N SBSQ 27420 [place] [address] MEDICAL ALA CARE/DAY SERV 25 FOUNDATIO MINUTES N RADEX HIP 34842 [place] [address] MEDICAL MEDICAL UNILATERA SERV SERV L FOUNDATIO FOUNDATIO COMPLETE MINIMUM 2 VIEWS ARTHRP 05030 [place] ARUN ABHI ACETBLR/P 4 MEDICAL EVELIN FEM SERV PROSTC FOUNDATIO AGRFT/ALG RFT SBSQ 49544 [place] [address] MEDICAL ALA CARE/DAY SERV 25 FOUNDATIO MINUTES N LEVEL III 87315 [place] LAUREANO SURG 4 MEDICAL SHADIA PATHOLOGY SERV FOUNDATIO GROSS&MIRTA ROSCOPIC EXAM DECALCIFI 58790 [place] LAUREANO CATION 4 MEDICAL SHADIA PROCEDURE SERV FOUNDATIO RADIOLOGI 35461 [place] ERWIN C 4 MEDICAL FRA EXAMINATI SERV ON PELVIS FOUNDATIO 1/2 VIEWS ECG 08712 [place] CLAUDETTE CHI ROUTINE 4 MEDICAL ECG SERV W/LEAST FOUNDATIO 12 LDS N I&R ONLY SBSQ 63992 [facility] 4 MEDICAL ALA CARE/DAY SERV 25 FOUNDATIO MINUTES N SBSQ 79570 [facility] 4 MEDICAL ALA CARE/DAY SERV 25 FOUNDATIO MINUTES N SBSQ 32014 [facility] 4 MEDICAL CARE/DAY SERV 25 FOUNDATIO MINUTES N SBSQ 06201 [facility] 4 MEDICAL CARE/DAY SERV 25 FOUNDATIO MINUTES N SBSQ 69032 [facility] 4 MEDICAL CARE/DAY SERV 25 FOUNDATIO MINUTES N RADIOLOGI 24272 [place] USHA LEEANN C 4 MEDICAL EXAMINATI SERV ON CHEST FOUNDATIO [place]ING[place] FRONTAL RADIOLOGI 17088 [facility] 4 MEDICAL EXAMINATI SERV ON CHEST FOUNDATIO [place] FRONTAL ECG 51629 [place] CLAUDETTE CHI ROUTINE 4 MEDICAL ECG SERV W/LEAST FOUNDATIO 12 LDS N I&R ONLY RADIOLOGI 58976 [place] USHA LEEANN C 4 MEDICAL EXAMINATI SERV ON PELVIS FOUNDATIO 1/2 VIEWS RADEX HIP 68063 [facility] 4 MEDICAL UNILATERA SERV L FOUNDATIO COMPLETE MINIMUM 2 VIEWS ARTHRP 68563 [place] ARUN ABHI ACETBLR/P 4 MEDICAL EVELIN FEM SERV PROSTC FOUNDATIO AGRFT/ALG RFT INITIAL 30648 [facility] 4 MEDICAL CARE/DAY SERV 50 FOUNDATIO MINUTES N LEVEL III 28129 [facility] SURG 4 MEDICAL [place] PATHOLOGY SERV FOUNDATIO GROSS&MIRTA ROSCOPIC EXAM DECALCIFI 04237 [facility] CATION 4 MEDICAL [place] PROCEDURE SERV FOUNDATIO ANESTHESI 69161 [facility] BRUENING A OPEN 4 LTH JR FADUMO TOTAL HIP ANESTHESI A PSC ARTHROPLA STY SUSCEPTIB 01327 [facility] LTY STDY 4 DIAGNOSTI DIAGNOSTI ANTIMICRB [facility] IAL MICRO/AGA R DILUTJ CUL BACT 37983 [facility] AEROBIC 4 DIAGNOSTI [facility] METHS DEFINITIV E EA ISOL CULTURE 62593 [facility] BACTERIAL 4 [facility]AGNOSTI [facility] QUANTTATI VE COLONY COUNT URINE CULTURE 22762 [facility] BCT 4 DIAGNOSTI DIAGNOSTI ISOL&PRSM CS [facility] PTV ID ISOLATE EA URINE CULTURE 75135 [facility] BACTERIAL 4 Y Y HOSPITAL [facility] QUANTTATI VE COLONY COUNT URINE BLOOD 66000 [facility] COUNT 4 Y Y COMPLETE [facility] AUTOMATED PREALBUMI 54873 [facility] N 4 Y Y HOSPITAL HOSPITAL CUL BACT 89616 [facility] AEROBIC 4 Y Y ADDL [facility] METHS DEFINITIV E EA ISOL URNLS DIP 53221 [facility] 4 Y Y STICK/TAB [facility] LET REAGENT AUTO MICROSCOP Y SUSCEPTIB 01050 [facility] LTY STDY 4 Y Y ANTIMICRB [facility] IAL MICRO/AGA R DILUTJ COLLECTIO 47491 [facility] N VENOUS 4 Y Y BLOOD [facility] VENIPUNCT URE BASIC 75924 [facility] METABOLIC 4 Y Y PANEL [facility] CALCIUM TOTAL RADEX 12163 [place] [facility] SPINE 4 MEDICAL TALAT LUMBOSACR IMAGING AL ONLY ASS BENDING 2/3 VIEWS RADEX HIP 42926 [place] [facility] 4 MEDICAL TALAT UNILATERA IMAGING L ASS COMPLETE MINIMUM 2 VIEWS HOSPITAL 64588 [place] [facility] DISCHARGE 4 MEDICAL ELSA DAY SERV MANAGEMEN FOUNDATIO T 30 MIN/< GROUND A0425 [facility] MILEAGE 4 AMBULANCE AMBULANCE PER SERVICE SERVICE STATUTE MILE AMB A0427 [facility] SERVICE 4 AMBULANCE AMBULANCE ALS SERVICE SERVICE [place]ERGENC[place] TRANSPORT L[place] 1 [place] [address] [place] HEIDI RETROPERI 4 MEDICAL MAT TONEAL SERV REAL TIME FOUNDATIO W/[place] [address] [place] DEWAYNE ABDOMEN & 4 MEDICAL SCO PELVIS SERV W/CONTRAS [facility] T MATERIAL ANES 30140 [place] CALELIZABETHIDER TRANSURET 4 MEDICAL RAN HRAL SERVICES W/URETHRO CYSTOSCOP Y NOS CYSTOURET 85460 [place] HROSCOPY 4 MEDICAL [place]SA [place] [address] [place] LINDSEY KAYLYN SURG 4 MEDICAL PATHOLOGY SERV FOUNDATIO GROSS&MIRTA ROSCOPIC EXAM ECG 63889 [facility] ROUTINE 4 Y Y ECG [facility] W/LEAST 12 LDS TRCG ONLY W/O I&R CULTURE 92090 [facility] BACTERIAL 4 Y Y HOSPITAL [facility] QUANTTATI VE COLONY COUNT URINE CULTURE 19814 [facility] BCT 4 Y Y ISOL&PRSM [facility] PTV ID ISOLATE EA URINE ECG 89272 [place] YASMANY TATA ROUTINE 4 MEDICAL ECG SERV W/LEAST FOUNDATIO 12 LDS N I&R ONLY CULTURE 54309 [facility] BACTERIAL 4 Y Y [facility] QUANTTATI VE COLONY COUNT URINE CYSTOURET 32512 [place] HROSCOPY 4 MEDICAL ELSA SERV FOUNDATIO URNLS DIP 56645 [place] [facility] 4 MEDICAL ELSA STICK/TAB SERV LET RGNT FOUNDATIO AUTO W/O MICROSCOP Y URNLS DIP 67906 [place] [facility] 4 MEDICAL ELSA STICK/TAB SERV LET RGNT FOUNDATIO AUTO W/O MICROSCOP Y LOCM Q9967 [facility] [phone] 4 Y Y MG/ML [facility] IODINE CONCENTRA TION PER ML CYSTOURET 60924 [place] HROSCOPY 4 MEDICAL ELSA SERV FOUNDATIO CUL BACT 94081 [facility] AEROBIC 4 Y Y ADDL [facility] [place] [address] [facility] ABDOMEN & 4 Y Y PELVIS [facility] W/O CONTRST 1/> BODY RE CULTURE 76730 [facility] BACTERIAL 4 Y Y [facility] QUANTTA VE COLONY COUNT URINE SUSCEPTIB 97796 [facility] LTY STDY 4 Y Y ANTIMICRB [facility] IAL MICRO/AGA R DILUTJ CLOSURE C1760 [facility] DEVICE 4 Y Y VASCULAR [facility] INTRDUCR/ C1894 [facility] SHEATH 4 Y Y NOT GUID [facility] INTRACARD EP NON-LASR INFUSION J7030 [facility] NORMAL 4 Y Y SALINE HOSPITAL HOSPITAL SOLUTION 1000 CC INJECTION J0171 [facility] 4 Y Y ADRENALIN [facility] EPINEPHRI NE 0.1 MG INJECTION J2710 [facility] 4 Y Y NEOSTIGMI [facility] NE METHYLSUL FATE UP TO 0.5 MG INJECTION J3010 [facility] FENTANYL 4 Y Y CITRATE [facility] 0.1 MG GUIDE C1769 [facility] WIRE 4 Y Y HOSPITAL HOSPITAL BLOOD 30436 [facility] COUNT 4 Y Y COMPLETE [facility] AUTOMATED THROMBOPL 40275 [facility] ASTIN 4 Y Y TIME [facility] PARTIAL PLASMA/WH OLE BLOOD PROTHROMB 76736 [facility] IN TIME 4 Y Y HOSPITAL HOSPITAL INJECTION J1644 [facility] HEPARIN 4 Y Y SODIUM [facility] PER 1000 UNITS LOCM Q9967 [facility] [phone] 4 Y Y MG/ML [facility] IODINE CONCENTRA TION PER ML ANESTHESI 89375 [place] TSE [place] [address] [place] [address] CAROTID/C SERV ORONARY FOUNDATIO THER IVNTL RAD INJECTION J2405 [facility] 4 Y [facility] 1 MG SLCTV 54194 [facility] CATH 4 Y Y INTRNL [facility] CAROTID ART ANGIO INTRCRNL ART US VASC 17790 [facility] ACCESS 4 Y Y SITS VSL [facility] PATENCY NDL ENTRY COMPREHEN 45844 [facility] SIVE 4 Y Y METABOLIC [facility] PANEL PLCMT G0269 [facility] OCCL DEVC 4 Y Y HOSPITAL HOSPITAL IRENE/ART POST SURG/INTR VNL PROC 3D 82140 [facility] RENDERING 4 Y Y HOSPITAL HOSPITAL W/INTERP& POSTPROC DIFF WORK STATION FAREED 10302 LESLIE JOHNSON POST-VOID 3 MEDICAL ELSA ING SERV RESIDUAL FOUNDATIO URINE&/BL ADDER CAP URNLS DIP 57970 [place] ALEX 3 MEDICAL ELSA STICK/TAB SERV LET RGNT FOUNDATIO AUTO W/O MICROSCOP Y CYTP 77006 [facility] SLCTV 3 Y Y CELL HOSPITAL [facility] ENHANCEME NT INTERPJ XCPT C/V CULTURE 67255 [facility] BACTERIAL 3 Y Y HOSPITAL [facility] QUANTTATI VE COLONY COUNT URINE CULTURE 37715 LAB [facility] LAB K[facility]ERINE BACTERIAL 3 [facility] QUANTTA VE COLONY COUNT URINE BLOOD 38610 [facility] COUNT 3 Y Y COMPLETE HOSPITAL HOSPITAL AUTOMATED INFUSION J7030 [facility] NORMAL 3 Y Y SALINE [facility] SOLUTION [address] IN[address] [facility] 3 Y Y HOSPITAL [facility] 500 MG HOSPITAL G0378 [facility] 3 Y Y ON HOSPITAL HOSPITAL SERVICE PER HOUR BASIC 10251 [facility] METABOLIC 3 Y Y PANEL [facility] CALCIUM TOTAL INJECTION J0692 [facility] Y Y [facility] 500 MG INFUSION J7030 [facility] NORMAL 3 Y Y SALINE [facility] SOLUTION 1000 CC INJECTION J1956 [facility] 3 Y Y LEVOFLOXA [facility] WILLI 250 MG INJECTION J1956 [facility] 3 Y Y LEVOFLOXA [facility] WILLI 250 MG INJECTION J1170 [facility] 3 Y Y HYDROMORP [facility] STEVE UP TO 4 MG BLOOD 74491 [facility] COUNT 3 Y Y COMPLETE [facility]PITAL AUTO&AUTO DIFRNTL WBC CULTURE 47383 [facility] BACTERIAL 3 Y Y HOSPITAL [facility] QUANTTATI VE COLONY COUNT URINE URNLS DIP 59213 [facility] 3 Y Y STICK/TAB HOSPITAL HOSPITAL LET REAGENT AUTO MICROSCOP Y INFUSION J7030 [facility] NORMAL 3 Y Y SALINE [facility] [place] [address] [place] [address] [facility] ABDOMEN & 3 Y Y PELVIS [facility] W/CONTRAS T MATERIAL INJECTION J2405 [facility] PER 1 MG LOCM Q9967 [facility] [phone] 3 Y Y MG/ML HOSPITAL HOSPITAL [place] [address] [facility] INFUSION 3 Y Y THER [facility] PROPH ADDL SEQUENTIA L TO 1 HR INITIAL 39130 JAMES SEGUNDO OBSERVATI 3 EMERGENCY ON SERVICES CARE/DAY 70 MINUTES COMPREHEN 11216 [facility] SIVE 3 Y Y METABOLIC [facility] PANEL THER 07693 [facility] PROPH/DX 3 Y Y NJX EA [facility] SEQL IV PUSH SBST/[place] F[place] [address] [facility] INFUSION 3 Y Y THERAPY/P [facility] ROPHYLAXI S /DX 1ST TO 1 HR THERAPEUT 98079 [facility] IC 3 Y Y INJECTION [facility] IV PUSH EACH NEW DRUG AMB A0427 [facility] SERVICE 3 AMBULANCE AMBULANCE ALS SERVICE SERVICE EMERGENCY TRANSPORT LEVEL 1 GROUND A0425 [facility] MILEAGE 3 AMBULANCE AMBULANCE PER SERVICE SERVICE STATUTE MILE BASIC 81067 LAB KATHERINE LAB KATHERINE METABOLIC 3 EDDIE EDDIE PANEL [facility] [place] [address] [facility] SURG 3 DIAGNOSTI DIAGNOSTI PATHOLOGY CS CS GROSS&MIRTA ROSCOPIC EXAM SLCTV 04354 [place] LUZ MARINA CATH 3 MEDICAL ABD INTRNL SERV CAROTID FOUNDATIO ART ANGIO INTRCRNL ART ANES ICRA 76218 [place] STEYN PIE 3 MEDICAL ICAR/AORT SERV IC THER FOUNDATIO IVNTL RAD ARTL 3D 49372 [place] RENDERING 3 MEDICAL MEDICAL SERV SERV W/INTERP& FOUNDATIO FOUNDATIO POSTPROC DIFF WORK STATION TRANSCATH 29159 [place] ALHAJERI ETER 3 MEDICAL ABD EMBOLIZAT SERV ION ANY FOUNDATIO METH RS&I ANGRPH 87659 [place] CATH F-UP 3 MEDICAL MEDICAL STD TCAT SERV SERV OTHER FOUNDATIO FOUNDATIO THAN THROMBYLS IS TCAT 98845 [place] PERMANENT 3 MEDICAL MEDICAL SERV SERV OCCLUSION FOUNDATIO FOUNDATIO /EMBOLIZA TION PRQ ASSISTANT SUPERINTENDENT FOR CURRICULUM ARTL 31131 [place] STE[place] PIE CATHJ/CAN 3 MEDICAL NULJ SERV MNTR/JOE FOUNDATIO SFUSION SPX PRQ US SOFT 51104 [facility] VO TISSUE 3 [facility] HEAD & INC [place] [address] LESLIE RASLAU ANGIOGRAP 3 MEDICAL FLA HY NECK SERV W/CONTRAS [place]OUNDAT[place] T/[place] [address] [place] RASLAU ANGIOGRAP 3 MEDICAL FLA HY HEAD SERV W/CONTRAS FOUNDATIO T/NONCONT RAST BLOOD 35403 [facility] VO COUNT 3 MEM [facility] COMPLETE INC INC AUTO&[place] [address] [facility] VO HEAD/BRAI 3 MEM HOS[facility]OS[facility] N W/O INC INC CONTRAST MATERIAL 3D 36193 T[facility] VO RENDERING 3 MEM HOS[facility]OS[facility] W/INTERP INC INC & POSTPROCE SS SUPERVISI ON BASIC 37610 [facility] VO METABOLIC 3 MEM HOS[facility] MEM HOSP PANEL INC INC CALCIUM TOTAL SLCTV 14712 LESLIE ALHAJERI CATH 3 MEDICAL ABD INTRNL SERV CAROTID FOUNDATIO ART ANGIO INTRCRNL ART 3D 03303 [place] ALHAJER[place] RENDERING 3 MEDICAL ABD SERV W/INTERP& FOUNDATIO POSTPROC DIFF WORK STATION ANESTHESI 30166 LESLIE COVARRUBIAS PIE A 3 MEDICAL CAROTID/C SERV ORONARY FOUNDATIO THER IVNTL RAD LOCM Q9967 [facility]ERS 300-399 2 Y Y MG/ML [facility] [place] [address] [facility] ABDOMEN & 2 Y Y PELVIS [facility] W/CONTRAS T MATERIAL GLUCOSE 81901 Eduardo VENEGAS JULIO C QUANTITAT 2 GAYATRI [place] [address] RACHAEL CHELI CERVICAL 2 MEDICAL TALAT SPINE W/O IMAGING CONTRAST ASS MATERIAL 3D 13740 RACHAEL CHELI RENDERING 2 MEDICAL TALAT IMAGING W/INTERP& ASS POSTPROC DIFF WORK STATION THERAPEUT 38218 [facility] VO IC 2 MEM HOS[facility] PROPHYLAC INC INC TIC/DX INJECTION SUBQ/IM SBSQ 68819 [place] [facility] 2 MEDICAL CARE/DAY SERV 15 FOUNDATIO MINUTES ANGIOGRAP 67596 [place] AL[place]ER[place] HY 2 MEDICAL ABD CAROTID SERV CEREBRAL FOUNDATIO UNILATERA L RS&I ANES ICRA 23274 [place] 2 MEDICAL SRI ICAR/AORT SERV IC THER FOUNDATIO IVNTL RAD ARTL SLCTV 73331 [place] CATHJ 2 MEDICAL MEDICAL 3RD+ ORD SERV SERV SLCTV FOUNDATIO FOUNDATIO THRC/BRCH /CPHLC BRNCH ARTL 16427 [place] CATHJ/CAN 2 MEDICAL SRI NULJ SERV MNTR/JOE FOUNDATIO SFUSION SPX PRQ TRANSCATH 86511 [place] ETER 2 MEDICAL MEDICAL EMBOLIZAT SERV SERV ION ANY FOUNDATIO FOUNDATIO METH RS&I TCAT 77660 [place] PERMANENT 2 MEDICAL MEDICAL SERV SERV OCCLUSION FOUNDATIO FOUNDATIO /EMBOLIZA TION PRQ ASSISTANT SUPERINTENDENT FOR CURRICULUM ANGRPH 12568 [place] CATH F-UP 2 MEDICAL MEDICAL STD TCAT SERV SERV OTHER FOUNDATIO FOUNDATIO THAN THROMBYLS IS ECG 01980 [place] CLAUDETTE C ROUTINE 2 MEDICAL ECG SERV W/LEAST FOUNDATIO 12 LDS I&R ONLY URNLS DIP 93979 [facility] 2 Y Y STICK/TAB HOSPITAL HOSPITAL LET REAGENT AUTO MICROSCOP Y BLOOD 31001 [facility] COUNT 2 Y Y COMPLETE [facility] AUTOMATED BASIC 75650 [facility] METABOLIC 2 Y Y PANEL [facility] CALCIUM TOTAL COLLECTIO 81372 [facility] N VENOUS 2 Y Y BLOOD [facility] VENIPUNCT URE ANGIOGRAP 20892 [facility] 2 Y Y VERTEBRAL [facility] /CERVICAL /&/INTRAC RAN RS&I LOCM Q9967 [facility] [phone] 2 Y Y MG/ML HOSPITAL HOSPITAL IODINE CONCENTRA TION PER ML ANGIOGRAP 94843 [facility] 2 Y Y CERVICOCE [facility] REBRAL CATHETER RS&I 3D 49511 [facility] 2 Y Y HOSPITAL HOSPITAL W/INTERP& POSTPROC DIFF WORK STATION INJECTION J0330 [facility] 2 [facility] H[facility] CHLOR[facility] UP TO 20 MG ANESTHESI 20904 [place] A 2 MEDICAL SRI DIAGNOSTI SERV C FOUNDATIO ARTERIOGR APHY/VENO GRAPH US VASC 45262 [place] AL[place]ER[place] ACCESS 2 MEDICAL ABD SITS VSL SERV PATENCY FOUNDATIO NDL ENTRY SLCTV 55494 [facility] 2 Y Y 3RD+ ORD HOSPITAL HOSPITAL SLCT THRC/BRCH /CPHLC BRNCH PLCMT G0269 [facility] 2 Y Y [facility] IRENE/ART POST SURG/INTR VNL PROC GUIDE C1769 [facility] WIRE 2 Y Y HOSPITAL HOSPITAL INJECTION J1885 [facility] 2 Y Y KETOROLAC [facility] TROMETHAM INE PER 15 MG INJECTION J2710 [facility] 2 Y Y [facility]AT [facility] METHYLSUL FATE UP TO 0.5 MG ARTL 06593 [place] CATHJ/CAN 2 MEDICAL SRI NULJ SERV MNTR/JOE FOUNDATIO SFUSION SPX PRQ ANGIOGRAP 44895 [facility] 2 Y Y [facility] [facility] CEREBRAL BILATERAL RS&I ANGIOGRAP 12906 [facility] 2 Y Y [place] [facility] CERVICAL BILATERAL RS&I SLCTV 94735 [facility] CATH 1ST 2 Y Y 2ND ORD HOSPITAL HOSPITAL THRC/BRCH /CPHLC BRNCH INJECTION J1644 [facility] HEPARIN 2 Y Y SODIUM [facility] PER 1000 UNITS RINGERS J7120 [facility] LACTATE 2 Y Y INFUSION [facility] UP TO 1000 CC INFUSION J7030 [facility] NORMAL 2 Y Y SALINE [facility] SOLUTION 1000 CC CLOSURE C1760 [facility] DEVICE 2 Y Y VASCULAR [facility] INTRDUCR/ C1894 [facility] SHEATH 2 Y Y NOT GUID [facility] INTRACARD EP NON-LASR ECG 15505 [place] [facility] C ROUTINE 2 MEDICAL ECG SERV W/LEAST FOUNDATIO 12 LDS I&R ONLY THROMBOPL 01789 [facility] ASTIN 2 Y Y TIME HOSPITAL [facility] PARTIAL PLASMA/WH OLE BLOOD BLOOD 77932 [facility] COUNT 2 Y Y COMPLETE [facility] AUTOMATED URNLS DIP 88421 [facility] 2 Y Y STICK/TAB [facility] LET REAGENT AUTO MICROSCOP Y PROTHROMB 90412 [facility] IN TIME 2 Y Y HOSPITAL HOSPITAL ECG 16069 [facility] ROUTINE 2 Y Y ECG [facility] W/LEAST 12 LDS TRCG ONLY W/O I&R BASIC 13202 [facility] METABOLIC 2 Y Y PANEL [facility] CALCIUM TOTAL US SOFT 99027 [facility] TISSUE 2 Y Y [facility] & [facility] NECK REAL TIME IMGE DOCM CREATININ 16229 [facility] E BLOOD 2 Y Y [facility] HOSPITAL CT SOFT 35629 [facility] TISSUE 2 Y Y NECK [facility] W/[place] [address] [facility] UREA 2 Y Y NITROGEN [facility] QUANTITAT [place] LOCM Q9967 [facility] [phone] 2 Y Y MG/ML [facility] IODINE CONCENTRA TION PER ML CT THORAX 39191 [facility] 2 Y Y W/CONTRAS [facility] T MATERIAL LARYNGOSC 38682 LESLIE VALENZUELA OPY 2 MEDICAL LEEANN FLEXIBLE SERV DIAGNOSTI FOUNDATIO C PRESCRIPT G8553 [facility] IONS GEN 1 NEUMANNS PAB TRANSMITT EXTENDED ED H QUALIFIED ERX SYS COMPREHEN 39095 [facility] SIVE 1 DIAGNOSTI DIAGNOSTI METABOLIC CS CS PANEL LIPID 52098 [facility] PANEL 1 DIAGNOSTI DIAGNOSTI CS CS BASIC 60251 [facility] METABOLIC 1 AN AN PANEL [facility] [address] [facility] ABDOMEN 1 AN AN W/O & REGIONAL REGIONAL W/CONTRAS MEDICAL MEDICAL T MATERIAL PROTHROMB 86209 [facility] IN TIME 1 AN AN [facility] MEDICAL MEDICAL COLLECTIO 42646 [facility] N VENOUS 1 AN AN BLOOD [facility] VENIPUNCT MEDICAL MEDICAL URE LOCM Q9967 [facility] [phone] 1 AN AN MG/ML [facility] [facility] IODINE MEDICAL MEDICAL CONCENTRA TION PER ML BLEEDING 56264 [facility] TIME TEST 1 AN AN [facility] MEDICAL MEDICAL THROMBOPL 49370 [facility] ASTIN 1 AN AN TIME [facility] PARTIAL MEDICAL MEDICAL PLASMA/WH OLE BLOOD BLOOD 99305 [facility] COUNT 1 AN AN COMPLETE [facility] AUTO&AUTO MEDICAL MEDICAL DIFRNTL WBC INFUSION J7030 [facility] NORMAL 1 AN AN SALINE [facility] SOLUTION MEDICAL MEDICAL 1000 [facility]8553 [facility]ANNS PAB TRANSMITT EXTENDED ED H QUALIFIED ERX SYS MRI 29521 NEURODIAG LUTZ TRA SPINAL 1 NOSTICPSC CANAL LUMBAR W/O CONTRAST MATERIAL MRI 43937 NEURODIAG LUTZ TRA SPINAL 1 NOSTICPSC CANAL CERVICAL W/O CONTRAST MATRL PRESCRIPT G8553 [facility] IONS GEN 1 NEUMANNS PAB TRANSMITT EXTENDED ED H QUALIFIED ERX SYS HEPATIC 58800 [facility] FUNCTION 1 DIAGNOSTI DIAGNOSTI PANEL BANNER US SOFT 98092 [place] LONG BRANT TISSUE 1 MEDICAL HEAD & SERV NECK REAL FOUNDATIO TIME IMGE DOCM BILIRUBIN 22889 [facility] DIRECT 1 [place] [address] [facility] PHOSPHATA 1 DIAGNOSTI DIAGNOSTI SE CS CS ALKALINE BILIRUBIN 88963 [facility] TOTAL 1 DIAGNOSTI DIAGNOSTI CS CS TRANSFERA 27140 [facility] SE 1 DIAGNOSTI DIAGNOSTI ASPARTATE CS CS AMINO AST SGOT TRANSFERA 16664 [facility] SE 1 DIAGNOSTI DIAGNOSTI ALANINE CS CS AMINO ALT SGPT PRESCRIPT G8553 [facility] EHSAN IONS GEN 1 NEUMANNS PAB TRANSMITT EXTENDED ED H QUALIFIED ERX SYS ALBUMIN 65000 [facility] SERUM 1 DIAGNOSTI DIAGNOSTI PLASMA/WH CS CS OLE BLOOD PRESCRIPT G8553 [facility] MOSER IONS GEN 1 NEUMANNS PAB TRANSMITT EXTENDED ED H QUALIFIED ERX SYS LARYNGOSC 01535 LESLIE BOOKERBIANCA OPY W/WO 1 MEDICAL LEEANN TRACHEOSC SERV OPY FOUNDATIO W/MICRO/[place] L[place] 23459 [place] LINDSEY KAYLYN SURG 1 MEDICAL PATHOLOGY SERV FOUNDATIO GROSS&MIRTA ROSCOPIC EXAM EXC PRTD 25583 LESLIE VALENZUELA CARLA/PRTD 1 MEDICAL LEEANN GLND LAT SERV DSJ&PRSRV FOUNDATIO FACIAL NR ECG 56516 [facility] ROUTINE 1 Y Y ECG [facility] W/LEAST 12 LDS TRCG ONLY W/O I&R ECG 99819 LESLIE CLAUDETTE C ROUTINE 1 MEDICAL ECG SERV W/LEAST FOUNDATIO 12 LDS I&R ONLY R& L HRT 84967 HEART & HEART & CATH 1 VASCULAR VASCULAR W/INJEC SPECIALIS SPECIALIS HRT TS TS ART/GRFT& L VENT I CV STRS 49567 [facility] & [facility] TST 1 VASCULAR XERS&/OR SPECIALIS RX CONT TS ECG W/O I&R CV STRS 75349 [facility] TST 1 MED CTR, MED CTR, XERS&/OR ATTN: ATTN: RX CONT DENE DENE ECG TRCG ONLY TECHNETIU A9500 [facility] M TC-99M 1 MED CTR, MED CTR, SESTAMIBI ATTN: ATTN: DX PER DENE DENE STUDY DOSE MYOCARDIA 16171 HEART & HEART & L SPECT 1 VASCULAR VASCULAR SINGLE SPECIALIS SPECIALIS STUDY AT [facility] REST OR STRESS MYOCARDIA 71696 [place] L SPECT 1 MED CTR, MED CTR, MULTIPLE ATTN: ATTN: STUDIES DENE DENE ECHO 21292 HEART & [facility] TTHRC R-T 1 VASCULAR 2D SPECIALIS W/WOM-MOD TS E COMPL SPEC&COLR D INJECTION J2785 [facility] 1 MED CTR, MED CTR, REGADENOS ATTN: ATTN: ON 0.1 MG DENE DENE SPECTROPH 80864 [facility] OTOMETRY 1 Dynamics [facility] Kl[employer] ANALYT NOT ELSEWHERE SPECIFIED PH BODY 57320 [facility] FLUID NOT 1 Dynamics [facility] Dynamics INC ELSEWHERE SPECIFIED CREATININ 06777 [facility] E OTHER 1 [place] [address] [facility] INFUSION 1 MED CTR, MED CTR, HYDRATION ATTN: ATTN: INITIAL DENE DENE 31 MIN-1 [place] [address] [facility] INFUSION 1 MED CTR, MED CTR, THERAPY ATTN: ATTN: PROPHYLAX DENE DENE IS/DX EA HOUR CT THORAX 79283 [facility] 1 MED CTR, MED CTR, W/CONTRAS ATTN: ATTN: T DENE DENE MATERIAL CT THORAX 29755 [place] 1 RIVER HBP SHADIA W/CONTRAS LLC T MATERIAL RADIOLOGI 63808 [place] C [address] [place] [address] HBP SHADIA EXAMINATI LLC ON CHEST SINGLE VIEW FRONTAL CUL BACT 42921 [facility] AEROBIC 1 MED CTR, MED CTR, ADDL ATTN: ATTN: METHS DENE DENE DEFINITIV E EA ISOL ARTERIAL 77958 [facility] PUNCTURE 1 MED CTR, MED CTR, WITHDRAWA ATTN: ATTN: L BLOOD DENE DENE DX BLOOD 42635 [facility] GASES ANY 1 MED CTR, MED CTR, ATTN: ATTN: COMBINATI DENE DENE ON PH PCO2 PO2 CO2 HCO3 URNLS DIP 83616 [facility] 1 MED CTR, MED CTR, STICK/TAB ATTN: ATTN: LET DENE DENE REAGENT AUTO MICROSCOP Y CULTURE 93869 [facility] BACTERIAL 1 MED CTR, MED CTR, ATTN: ATTN: QUANTTATI DENE DENE VE COLONY COUNT URINE HEMOGLOBI 94118 [place] N 1 MED CTR, MED CTR, METHEMOGL ATTN: ATTN: OBIN DANIEL DENE QUANTITAT [place] NATRIURET 21252 [place] IC 1 MED CTR, MED CTR, PEPTIDE ATTN: ATTN: [place] [address] [place] TROPONIN 1 MED CTR, MED CTR, QUANTITAT ATTN: ATTN: [place]ST[place] DENE DENE BLOOD 35590 [place] COUNT 1 MED CTR, MED CTR, COMPLETE ATTN: ATTN: AUTO&AUTO DENE DENE DIFRNTL WBC SUSCEPTIB 73720 [place] LTY STDY 1 MED CTR, MED CTR, ANTIMICRB ATTN: ATTN: IAL DANIEL SANCHEZ MICRO/AGA R DILUTJ INJECTION J0696 [place] 1 MED CTR, MED CTR, CEFTRIAXO ATTN: ATTN: NE SODIUM DANIEL DENE PER 250 MG CREATINE 97461 [place] KINASE 1 MED CTR, MED CTR, TOTAL ATTN: ATTN: [place] [address] [place] MAGNESIUM 1 MED CTR, MED CTR, ATTN: ATTN: DENE DENE ECG 94871 [place] ROUTINE 1 MED CTR, MED CTR, ECG ATTN: ATTN: W/LEAST DENE DENE 12 LDS TRCG ONLY W/O I&R FIBRIN 71449 [place] DGRADJ 1 MED CTR, MED CTR, PRODUCTS ATTN: ATTN: D-DIMER DENE DENE QUAL/SEMI JUAN CARLOS COMPREHEN 11343 [place] SIVE 1 MED CTR, MED CTR, METABOLIC ATTN: ATTN: PANEL DENE DENE COLLECTIO 50985 [place] N VENOUS 1 MED CTR, MED CTR, BLOOD ATTN: ATTN: VENIPUNCT DENE DENE URE GASES 31267 [place] BLOOD PH 1 MED CTR, MED CTR, DIRECT ATTN: ATTN: FAREED XCPT DENE DENE PULSE OXIMITRY CARBOXYHE 97383 [place] MOGLOBIN 1 MED CTR, MED CTR, QUANTITAT ATTN: ATTN: [place] DANIEL DENE CREATINE 22882 [place] KINASE MB 1 MED CTR, MED CTR, FRACTION ATTN: ATTN: ONLY DANIEL SANCHEZ LOCM Q9967 [place] [phone] 1 MED CTR, MED CTR, MG/ML ATTN: ATTN: IODINE DENE DENE CONCENTRA TION PER ML CYTP FINE 59823 [place] NO[place] NDL 1 MEDICAL BRILL YOL ASPIRATE SERV IMMT FOUNDATIO CYTOHIST STD DX 1ST CYTP EVAL 85301 [place] FINE 1 MEDICAL BRILL YOL NEEDLE SERV ASPIRATE FOUNDATIO INTERP & RE[place] [address] [place] FRIED A GUIDANCE 1 MEDICAL NEEDLE SERV PLACEMENT FOUNDATIO IMG S&I FINE 20940 [place] FRIED A NEEDLE 1 MEDICAL ASPIRATIO SERV N WITH FOUNDATIO IMAGING GUIDANCE CYTP FINE 60457 [place] NDL 1 MEDICAL BRILL YOL ASPIRATE SERV IMMT FOUNDATIO CYTOHIST STD EA EVAL RADEX 91184 [place] ABDOMEN 1 1 RIVER HBP SHADIA LLC ANTEROPOS TERIOR VIEW RADEX 23161 [place] ABDOMEN 1 1 RIVER HBP SHADIA LLC ANTEROPOS TERIOR VIEW SIGMOIDOS 53497 [facility] [place] COPY FLX 1 MED CTR, MED CTR, DX ATTN: ATTN: W/COLLKarl SANCHEZ SPEC BR/WA IF PFRMD ESOPHAGOG 88342 BRENDA CHOWDHURYSPIKEAvelina ASTRODUOD 1 PHYSICIAN MAXINE ENOSCOPY KATHERINE TRANSORAL DIAGNOSTI C COLONOSCO 80983 BRENDA CHOWDHURYSPWALLY PY FLX DX 1 PHYSICIAN MAXINE W/COLLJ KATHERINE SPEC WHEN PFRMD INJECTION J2765 [facility] 1 MED CTR, MED CTR, METOCLOPR ATTN: ATTN: AMIDE HCL DENE DENE UP TO 10 MG INJECTION J2250 [facility] 1 MED CTR, MED CTR, MIDAZOLAM ATTN: ATTN: HCL PER DENE DENE 1 MG ECG 50363 [facility] ROUTINE 1 MEDICAL MEETA ECG SPECIALIT W/LEAST Y CL 12 LDS I&[place] [address] RACHAEL NIKITA ABDOMEN & 1 RIVER HBP SHADIA PELVIS LLC W/CONTRAS T MATERIAL RADIOLOGI 72515 RACHAEL NIKITA C EXAM 1 RIVER HBP SHADIA CHEST 2 LLC VIEWS FRONTAL&L ATERAL BLOOD 45321 [facility] COUNT 1 [facility] COMPLETE AUTO&[place] [address] [facility] THYROID 1 [facility] STIMULATI NG HORMONE TSH COMPREHEN 90222 [facility] SIVE 1 [facility] METABOLIC PANEL CYTP EVAL 17394 [place] COLTEN GALLEGOS FINE 1 MEDICAL NEEDLE SERV ASPIRATE FOUNDATIO INTERP & REPORT FINE 49952 [place] COLTEN GALLEGOS NEEDLE 1 MEDICAL ASPIRATIO SERV N W/O FOUNDATIO IMAGING GUIDANCE LARYNGOSC 27261 [facility] SHU OPY 1 ENT TAR INDIRECT CLINIC DIAGNOSTI PSC C SPX CREATININ 95590 [facility] E BLOOD 1 MED CTR, MED CTR, ATTN: ATTN: DANIEL SANCHEZ US SOFT [address] [facility] NIKITA TISSUE 1 RIVER HBP SHADIA HEAD & LLC [place] [address] [facility] UREA 1 MED CTR, MED CTR, NITROGEN ATTN: ATTN: QUANTITAT DANIEL SANCHE[place] [address] [facility] N[facility]ITA TISSUE 1 RIVER HBP SHADIA NECK LLC W/CONTRAS T MATERIAL COLLECTIO 97065 [facility] N VENOUS 1 MED CTR, MED CTR, BLOOD ATTN: ATTN: VENIPIVAN SANCHEZ URE COMPREHEN 93608 [facility] SIVE 1 [facility] [place] [address] [facility] THYROID 1 [facility] STIMULATI NG HORMONE TSH LIPID 04446 [facility] PANEL 1 [facility] BLOOD 07927 [facility] COUNT 1 [employer] INC COMPLETE AUTO&AUTO DIFRNTL WBC MRI 60450 NEURODIAG [place] SPINAL 1 NOSTICPSC ROL CANAL CERVICAL W/O CONTRAST MATRL MRI 48870 NEURODIAG [place] SPINAL 1 NOSTICPSC ROL CANAL LUMBAR W/O CONTRAST MATERIAL MRI ANY 23329 NEURODIAG [place] JT UPPER 1 NOSTICPSC ROL EXTREMITY W/O CONTRAST MATRL WALKER E0143 GEO GEO FOLDING 1 CO MEDI CO MEDI WHEELED [facility] ADJUSTABL E/FIXED HEIGHT HEPATIC 56895 [facility] FUNCTION 0 [employer] PANEL THERAPEUT 45862 [place] IC PX 1/> 0 MED CTR, MED CTR, AREAS ATTN: ATTN: EACH 15 DENE DENE MIN EXERCISES THERAPEUT 96925 [place] IC PX 1/> 0 MED CTR, MED CTR, AREAS ATTN: ATTN: EACH 15 DENE DENE MIN EXERCISES E-STIM G0283 [place] 1/> AREAS 0 MED CTR, MED CTR, OTH THAN ATTN: ATTN: WND CARE DENE DENE PART TX PLAN E-STIM G0283 [place] 1/> AREAS 0 MED CTR MED CTR OTH THAN WND CARE PART TX PLAN THERAPEUT 08214 [place] IC PX 1/> 0 MED CTR MED CTR AREAS EACH 15 MIN EXERCISES THERAPEUT 89123 [place] IC PX 1/> 0 MED CTR MED CTR AREAS EACH 15 MIN EXERCISES E-STIM G0283 [place] 1/> AREAS 0 MED CTR MED CTR OTH THAN WND CARE PART TX PLAN PHYSICAL 67078 [place] THERAPY 0 MED CTR MED CTR RE-EVALUA TION THERAPEUT 67449 [place] IC PX 1/> 0 MED CTR MED CTR AREAS EACH 15 MIN EXERCISES E-STIM G0283 [place] 1/> AREAS 0 MED CTR MED CTR OTH THAN WND CARE PART TX PLAN RADEX 22127 RACHAEL NIKITA SPINE 0 RIVER HBP SHADIA THORACIC LLC 3 VIEWS THERAPEUT 05496 [place] IC PX 1/> 0 MED CTR MED CTR AREAS EACH 15 MIN EXERCISES RADEX 81489 RACHAEL NIIKTA SPINE 0 RIVER HBP SHADIA LUMBOSACR LLC AL 2/3 VIEWS E-STIM G0283 [place] 1/> AREAS 0 MED CTR MED CTR OTH THAN WND CARE PART TX PLAN E-STIM G0283 [place] 1/> AREAS 0 MED CTR MED CTR OTH THAN WND CARE PART TX PLAN THERAPEUT 02993 [place] IC PX 1/> 0 MED CTR MED CTR AREAS EACH 15 MIN EXERCISES THERAPEUT 65579 [place] IC PX 1/> 0 MED CTR MED CTR AREAS EACH 15 MIN EXERCISES E-STIM G0283 [place] 1/> AREAS 0 MED CTR MED CTR OTH THAN WND CARE PART TX PLAN RADIOLOGI 89448 [place] C 0 MED CTR MED CTR EXAMINATI ON CHEST SINGLE VIEW FRONTAL E-STIM G0283 [place] 1/> AREAS 0 MED CTR MED CTR OTH THAN WND CARE PART TX PLAN ECG 40242 EHSAN EHSAN ROUTINE 0 PAB PAB ECG W/LEAST 12 LDS W/I&R THERAPEUT 46542 [place] IC PX 1/> 0 MED CTR MED CTR AREAS EACH 15 MIN EXERCISES THERAPEUT 28826 [place] IC PX 1/> 0 MED CTR MED CTR AREAS EACH 15 MIN EXERCISES E-STIM G0283 [place] 1/> AREAS 0 MED CTR MED CTR OTH THAN WND CARE PART TX PLAN THERAPEUT 02748 [place] IC PX 1/> 0 MED CTR MED CTR AREAS EACH 15 MIN EXERCISES E-STIM G0283 [place] 1/> AREAS 0 MED CTR MED CTR OTH THAN WND CARE PART TX PLAN E-STIM G0283 [place] 1/> AREAS 0 MED CTR MED CTR OTH THAN WND CARE PART TX PLAN THERAPEUT 90010 [place] IC PX 1/> 0 MED CTR MED CTR AREAS EACH 15 MIN EXERCISES THERAPEUT 22800 [place] PX 1/> 0 MED CTR MED CTR AREAS EACH 15 MIN EXERCISES E-STIM G0283 [place] 1/> AREAS 0 MED CTR MED CTR OTH THAN WND CARE PART TX PLAN E-STIM G0283 [place] 1/> AREAS 0 MED CTR MED CTR OTH THAN WND CARE PART TX PLAN THERAPEUT 79430 [place] IC PX 1/> 0 MED CTR MED CTR AREAS EACH 15 MIN EXERCISES PHYSICAL 33905 [place] THERAPY 0 MED CTR MED CTR RE-EVALUA TION THERAPEUT 06796 [place] P[place] 1/> 0 MED CTR MED CTR AREAS EACH 15 MIN EXERCISES E-STIM G0283 [place] 1/> AREAS 0 MED CTR MED CTR OTH THAN WND CARE PART TX PLAN BLOOD 83665 [facility] COUNT 0 [employer] COMPLETE AUTO&AUTO DIFRNTL WBC COMPREHEN 28014 [facility] SIVE 0 [employer] METABOLIC PANEL THERAPEUT 01953 [place] IC PX 1/> 0 MED CTR MED CTR AREAS EACH 15 [place] [address] [facility] THYROID 0 [employer] INC STIMULATI NG HORMONE TSH E-STIM G0283 [place] 1/> AREAS 0 MED CTR MED CTR OTH THAN WND CARE PART TX PLAN E-STIM G0283 [place] 1/> AREAS 0 MED CTR MED CTR OTH THAN WND CARE PART TX PLAN THERAPEUT 27667 [place] 1/> 0 MED CTR MED CTR AREAS EACH 15 MIN EXERCISES THERAPEUT 42000 [place] P[place] 1/> 0 MED CTR MED CTR AREAS EACH 15 MIN EXERCISES E-STIM G0283 [place] 1/> AREAS 0 MED CTR MED CTR OTH THAN WND CARE PART TX PLAN CULTURE 50361 [facility] BACTERIAL 0 [employer] [facility] QUANTTATI VE COLONY COUNT URINE CULTURE 18009 [facility] BCT 0 [employer] [place] [employer] ISOL&PRSM PTV ID ISOLATE EA URINE URINLS 43612 EHSNA EHSAN DIP 0 PAB PAB STICK/TAB LET REAGNT NON-AUTO MICRSCPY STANDARD K0001 GEO GEO Eyewitness SurveillanceCHAI 0 CO Albireo CO [facility] R [facility] THERAPEUT 90391 [place] IC PX 1/> 0 MED CTR MED CTR AREAS EACH 15 MIN EXERCISES E-STIM G0283 [place] 1/> AREAS 0 MED CTR MED CTR OTH THAN WND CARE PART TX PLAN THERAPEUT 72798 [place] PX 1/> 0 MED CTR MED CTR AREAS EACH 15 MIN EXERCISES E-STIM G0283 [place] 1/> AREAS 0 MED CTR MED CTR OTH THAN WND CARE PART TX PLAN E-STIM G0283 [place] 1/> AREAS 0 MED CTR MED CTR OTH THAN WND CARE PART TX PLAN THERAPEUT 49628 [place] PX 1/> 0 MED CTR MED CTR AREAS EACH 15 MIN EXERCISES PHYSICAL 07242 [place] THERAPY 0 MED CTR MED CTR EVALUATIO N E-STIM G0283 [place] 1/> AREAS 0 MED CTR MED CTR OTH THAN WND CARE PART TX PLAN MRI 88814 NEURODIAG LUTZ TRA SPINAL 0 NOSTICPSC CANAL LUMBAR W/O CONTRAST MATERIAL URINLS 46356 EHSAN EHSAN DIP 0 PAB PAB STICK/TAB LET REAGNT NON-AUTO MICRSCPY CULTURE 55666 [facility] BCT 0 [employer] [facility] ISOL&PRSM PTV ID ISOLATE EA URINE CULTURE 26485 [facility] BACTERIAL 0 Dynamics INC Dynamics INC [place] [address] BREATHIT PAMPATI ABDOMINAL 0 [facility] REAL IMAGING TIME CENT W/IMAGE LIMITED STANDARD K0001 GEO GEO WHEELCHAI 0 CO MEDI CO MEDI R [facility] RADEX 58952 BREATHIT HOLT A SPINE 0 [facility] THORACIC IMAGING MINIMUM 4 CENT VIEWS RADEX 45907 BREATHIT HOLT A SPINE 0 [facility] LUMBOSACR IMAGING AL CENT MINIMUM 4 VIEWS CULTURE 43730 [facility] BACTERIAL 0 [facility] QUANTTATI VE COLONY COUNT URINE CULTURE 28332 [facility] BCT 0 [facility] ISOL&PRSM PTV ID ISOLATE EA URINE URINLS 52054 EHSAN EHSAN DIP 0 PAB PAB STICK/TAB LET REAGNT NON-AUTO MICRSCPY STANDARD K0001 GEO GEO WHEELCHAI 0 CO [...] CO MEDI CO MEDI R [facility] LIPID 70434 [facility] PANEL 9 [facility] [place] [address] [facility] THYROID 9 [facility] STIMULATI NG HORMONE TSH COMPREHEN 96305 [facility] SIVE 9 [facility] METABOLIC PANEL BLOOD 17957 [facility] COUNT 9 [employer] [facility] COMPLETE AUTO&AUTO DIFRNTL WBC MRI 65745 GRAM HOLT, A SPINAL 9 RESOURCES R CANAL CERVICAL W/O CONTRAST MATRL RADEX 17792 [place] FINGR 8 MED CTR MED CTR MINIMUM 2 VIEWS INCI 8605 [place] W/REMOVAL 8 MED CTR MED CTR FB/DEVICE FROM SKIN & SUBQ TISSUE RADEX 97658 [place] SPINE 1 8 MED CTR MED CTR VIEW SPECIFY LEVEL CREATINE 37869 [facility] RIVER KINASE 8 MED CTR MED CTR TOTAL GENERAL 55082 [place] [facility] 8 MED CTR MED CTR PANEL ECG 63716 [place] ROUTINE 8 MED CTR MED CTR ECG W/LEAST 12 LDS TRCG ONLY W/O I&R COMPREHEN 68476 [place] SIVE 8 MED CTR MED CTR METABOLIC PANEL COLLECTIO 61734 [place] N VENOUS 8 MED CTR MED CTR BLOOD VENIPUNCT URE CREATINE 04849 [facility] RIVER KINASE MB 8 MED CTR MED CTR FRACTION ONLY RADEX 47624 BREATHIT PAMPATI, HIPS [address] [facility] BILATERAL IMAGING 2 VIEWS CENTER ANTEROPOS T PELVIS BLOOD 47868 [place] COUNT 8 MED CTR MED CTR COMPLETE AUTO&AUTO DIFRNTL WBC DOP 20433 APPALACHI PALIWAL, ECHOCARD 8 [facility] PULSE CENTER WAVE W/SPECTRA L F-UP/LMTD STD ECHO 46372 APPALACHI PALIWAL, TRANSTHOR 8 [facility] C R-T 2D CENTER W/WO M-MODE REC F-UP/LMTD DOP 18655 APPALACHI PALIWAL, ECHOCARD 8 AN HEART [facility] H COLOR CENTER FLOW VELOCITY MAPPING OBSERVATI 63742 [facility] ANYI, ON CARE 8 FAMILY CASA Y DISCHARGE PRACTICE CTR MANAGEMEN T Encounters Encounter Start End Date Code Location Performer Type Date [facility] TAVO - 6 6 [facility] TAV[facility] 6 6 [facility] T EMERGENCY 43233 HARRISON LERMA 6 6 [facility]YSICIAN FOR DEPART[facility] T VISIT HIGH/URGE NT SEVERITY [facility]OSPITAL TAVO - 6 6 [facility] TAV[facility] 6 6 [facility] T VISIT LOW/MODER SEVERITY OFFICE 06637 [facility] RA[facility] 6 6 MEDICAL ABD T VISIT 5 SERV MINUTES FOUNDATIO [facility] UNIVERSIT - 6 6 Y [facility] TAVO - 6 6 [facility] [address] [facility] 6 6 GAYATRI ART T VISIT PSC 15 MINUTES [facility] UNIVERSIT - 5 5 Y [facility] T OFFICE 16036 LESLIE MOE [facility] 5 5 MEDICAL T VISIT SERV 10 FOUNDATIO MINUTES [facility] UNIVERSIT - 5 5 [facility] T OFFICE 20016 LESLIE MOE [facility] 5 5 MEDICAL T VISIT SERV 15 FOUNDATIO MINUTES [facility] UNIVERSIT - 4 4 Y [facility] T [facility] INPATIENT 4 4 [facility] UNIVERSIT - 4 4 Y [facility] T [facility] 4 4 [facility] CARDINAL - 4 4 [facility] UNIVERSIT - 4 4 Y [facility] T OFFICE 18867 LESLIE MOE [facility] 4 4 MEDICAL T NEW 30 SERV MINUTES FOUNDATIO OFFICE 15707 LESLIE BRYSON JR OUTPATIEN 4 4 MEDICAL RAL T VISIT SERV 25 FOUNDATIO MINUTES OFFICE 08322 [place] CANDELAR[place] OUTPATIEN 4 4 MEDICAL PASHA T VISIT SERV 25 FOUNDATIO MINUTES OFFICE 12006 [place] LALA PHI OUTPATIEN 4 4 MEDICAL T VISIT SERV 15 FOUNDATIO MINUTES HOSPITAL TAVO - 4 4 [facility] 36725 [place] HEIDI DEPT 4 4 MEDICAL MAT VISIT SERV HIGH FOUNDATIO SEVERITY& THREAT [facility] UNIVERSIT - 4 4 Y [facility] UNIVERSIT [facility] OTHER 4 4 [facility] UNIVERSIT - 4 4 Y [facility] UNIVERSIT [facility] 4 4 Y [facility] UNIVERSIT - 3 3 Y [facility] T OFFICE 01847 [place] B[place]ERT OUTPATIEN 3 3 MEDICAL ELSA T NEW 30 SERV MINUTES [facility] UNIVERSIT - 3 3 Y [facility] T EMERGENCY 98374 UNIVERSIT 3 3 Y [facility] T VISIT HIGH/URGE NT SEVERITY EMERGENCY 19355 LESLIE DOUGHERTY DEPT 3 3 MEDICAL PAMELA VISIT SERV HIGH FOUNDATIO SEVERITY& THREAT [facility] OFFICE 72945 [place] TO[place] OUTPATIEN 3 3 MEDICAL JR DAMIAN T NEW 20 SERV MINUTES [place]OUNDAT[place] OFFICE 55211 [place] ALHAJERI OUTPATIEN 3 3 MEDICAL ABD T VISIT SERV 25 FOUNDATIO MINUTES OFFICE 74357 UNIVERSIT OUTPATI 3 3 Y T VISIT 5 [facility] UNIVERS[facility] 3 3 Y [facility] TAVO - 3 3 MEM HOSP OUTPATIEN [facility] T EMERGENCY 32840 TAVO 3 3 [facility] DEPARTMEN INC T VISIT LOW/MODER SEVERITY HOSPITAL TAVO - 3 3 [facility] OUTPATIEN [facility] T EMERGENCY 52113 JAMES SMART DEPT 3 3 EMERGENCY VISIT SERVICES HIGH SEVERITY& THREAT FUNCJ OFFICE 80979 LESLIE RAZA OUTPATIEN 3 3 MEDICAL ABD T VISIT SERV 25 [facility] UNIVERSIT - 3 3 Y [facility] T OFFICE 10652 [facility] 3 3 Y T VISIT 5 [facility] UNIVERSIT - 3 3 Y [facility] T OFFICE 80833 [facility] A[facility] T V[facility]IT SERV 15 [facility] UNIV[facility] - 2 2 [facility] T OFFICE 06405 A Karen BUNCH OUTPATIEN 2 2 GAYATRI ART T VISIT PSC 15 MINUTES EMERGENCY 91486 [facility] MODERATE SEVERITY [facility] 2 2 [facility] 19058 JAMES SMART DEPT 2 2 EMERGENCY VISIT SERVICES HIGH SEVERITY& THREAT FUNCJ OFFICE 96721 Eduardo BUNCH OUTPATIEN 2 2 GAYATRI ART T VISIT PSC 15 MINUTES OFFICE 80177 LESLIE SINGHPATIEN 2 2 MEDICAL ABD T VISIT SERV 15 FOUNDATIO MINUTES OFFICE 28342 LESLIE VALENZUELA OUTPATIEN 2 2 MEDICAL LEEANN T VISIT SERV 15 [facility] UNIVERSIT - 2 2 [facility] T OFFICE 51134 LESLIE VALENZUELA OUTPATIEN 2 2 MEDICAL LEEANN T VISIT SERV 15 FOUNDATIO MINUTES OFFICE [address]03 [place] ALVENUSJERI OUTPATIEN 2 2 MEDICAL ABD T VISIT SERV 15 FOUNDATIO MINUTES OFFICE 33262 Eduardo VENEGAS [facility] OUTPATIEN 2 2 GAYATRI ART T NEW 20 [facility] UNIVERSIT - 2 2 [facility] UNIV[facility] - 2 2 Y [facility] T OFFICE 55575 [place] RANDYJERI OUTPATIEN 2 2 MEDICAL ABD T NEW 45 SERV MINUTES FOUNDATIO OFFICE 78108 [place] BIANCA OUTPATIEN 2 2 MEDICAL LEEANN T VISIT SERV 15 FOUNDATIO MINUTES HOSPITAL UNIVERSIT - 2 2 Y [facility] T OFFICE 69106 [place] BIANCA OUTPATIEN 2 2 MEDICAL LEEANN T VISIT SERV 25 FOUNDATIO MINUTES OFFICE 93303 [facility] P[facility] T VISIT EXTENDED 25 H MINUTES [facility] T MEDICAL OFFICE 82549 [facility] 1 [facility] P[facility] T VISIT EXTENDED 15 H MINUTES OFFICE 84897 [facility] 1 [facility] T VISIT EXTENDED 15 H MINUT[facility] OFFICE 20411 [facility] [facility] 1 1 NEUMANNS PAB T VISIT EXTENDED 25 H MINUTES OFFICE 78047 [facility] 1 NEUMANNS PAB T VISIT EXTENDED 15 H MINUTES OFFICE 46201 [facility] [facility] 1 1 NEUMANNS PAB T VISIT EXTENDED 25 H MINUTES HOSPITAL [facility] - 1 1 Y [facility] UN[facility] 1 1 [facility] T OFF[facility] 64595 [facility] 1 1 VASCULAR T VISIT SPECIALIS 25 TS MINUTES HOSPITAL [facility] - 1 1 MED CTR, OUTPATIEN ATTN: T DENE OFFICE 71461 LESLIE ALEMANO OUTPATIEN 1 1 MEDICAL LEEANN T VISIT SERV 40 FOUNDATIO MINUTES OFFICE 63602 LESLIE GOMEZ JR OUTPATIEN 1 1 MEDICAL THO T NEW 45 SERV MINUTES [facility]GENC[facility] [address] 1 1 [facility] [facility] T VISIT MODERATE SEVERITY EMERGENCY 53327 [facility] 1 1 MED CTR, DEPARTMEN ATTN: T VISIT DENE HIGH/URGE NT SEVERITY [facility] - 1 1 MED CTR, OUTPATIEN ATTN: [facility] - 1 1 MED CTR, OUTPATIEN ATTN[facility] - 1 1 MED CTR, OUTPATIEN ATTN[facility] - 1 1 MED CTR, OUTPATIEN ATTN[facility] OFFICE 44137 [facility] PHYSICIAN MAXINE T VISIT KATHERINE 10 MINUTES OFFICE 64266 EHSAN EHSAN OUTPATIEN 1 1 PAB PAB T VISIT 15 MINUTES OFFICE 27164 LESLIE VALENZUELA OUTPATIEN 1 1 MEDICAL LEEANN T NEW 45 SERV MINUTES FOUNDATIO OFFICE 88473 BRENDA CHOWDHURYWINSTONIKER OUTPATIEN 1 1 PHYSICIAN MAXINE T VISIT KATHERINE 10 MINUTES OFFICE 31639 BRENDA VAZQUEZMARIO OUTPATIEN 1 1 ENT TAR T NEW 45 CLINIC MINUTES [facility] - 1 1 MED CTR, OUTPATIEN ATTN: T [facility] OFFICE 46505 BRENDA HORN OUTPATIEN 1 1 PHYSICIAN MAXINE Santos NEW 20 KATHERINE MINUTES OFFICE 37888 EHSAN EHSAN OUTPATIEN 1 1 PAB PAB T VISIT 25 MINUTES OFFICE 41584 EHSAN EHSAN OUTPATIEN 1 1 PAB PAB T VISIT 25 MINUTES OFFICE 61546 EHSAN EHSAN OUTPATIEN 1 1 PAB PAB T VISIT 25 MINUTES [facility] [place] [facility], OUTPATIEN ATTN: T DENE OFFICE 87621 EHSAN EHSAN OUTPATIEN 0 0 PAB PAB T VISIT 25 MINUTES EMERGENCY 55679 [place] [facility] 0 0 [facility] T VISIT MODERATE SEVERITY [facility] [place] [facility], OUTPATIEN ATTN: T DENE OFFICE 20686 EHSAN EHSAN OUTPATIEN 0 0 PAB PAB T VISIT 25 MINUTES [facility] [place] [facility] [place] [facility] [place] [facility] OUTPATI[facility] T OFFICE 46779 EHSAN EHSAN OUTPATIEN 0 0 PAB PAB T VISIT 25 MINUTES [facility] [place] [facility] OUTPATI[facility] T OFFICE 20464 EHSAN EHSAN OUTPATIEN 0 0 PAB PAB T VISIT 15 MINUTES OFFICE 52854 [place] [facility] MAT OUTPATIEN 0 0 [place] T NEW 30 CLINIC MINUTES [facility] [place] [facility] OUTPATIEN T OFFICE 04048 EHSAN EHSAN OUTPATIEN 0 0 PAB PAB T VISIT 15 MINUTES OFFICE 08787 EHSAN EHSAN OUTPATIEN 0 0 PAB PAB T VISIT 25 MINUTES [facility] [place] [facility] [place] [facility] OUT[facility] T OFFICE 09162 EHSAN EHSAN OUTPATIEN 0 0 PAB PAB T VISIT 25 MINUTES OFFICE 99239 EHSAN EHSAN OUTPATIEN 0 0 PAB PAB T VISIT 25 MINUTES OFFICE 70449 EHSAN EHSAN OUTPATIEN 0 0 PAB PAB T VISIT 15 MINUTES OFFICE 05032 EHSAN EHSAN OUTPATIEN 0 0 PAB PAB T VISIT 25 MINUTES OFFICE 07049 EHSAN EHSAN OUTPATIEN 0 0 PAB PAB T VISIT 25 MINUTES OFFICE 83715 EHSAN, EHSAN, OUTPATIEN 9 9 SHAKIRA SHAKIRA T VISIT 15 MINUTES OFFICE 35787 EHSAN, EHSAN, OUTPATIEN 9 9 SHAKIRA SHAKIRA T VISIT 15 MINUTES OFFICE 79443 EHSAN, EHSAN, OUTPATIEN 9 9 SHAKIRA SHAKIRA T VISIT 25 MINUTES OFFICE 46436 EHSAN, EHSAN, OUTPATIEN 9 9 SHAKIRA SHAKIRA T VISIT 15 MINUTES OFFICE 48292 EHSAN, EHSAN, OUTPATIEN 9 9 SHAKIRA SHAKIRA T VISIT 25 MINUTES [facility] [place] [facility] [place] T [place]ENC[place] 21138 [place] 8 8 [facility] DEPARTMEN T VISIT MODERATE SEVERITY EMERGENCY 86999 [facility] 8 8 [place] - YORBA, DEPARTMEN EMERGENCY ASIF T VISIT PHYS INC M HIGH/URGE NT SEVERITY [facility] [place] [facility] 8 [facility] OUTPATIEN T OFFICE 83297 EHSAN MOSER OUTPATIEN 8 8 SHAKIRA SHAKIRA T VISIT 15 MINUTES EMERGENCY 72261 [place] 8 8 [facility] DEPARTMEN T VISIT HIGH/URGE NT SEVERITY OFFICE 00338 EHSAN MOSER OUTPATIEN 8 8 SHAKIRA SHAKIRA T VISIT 15 MINUTES OFFICE 25009 LUIS PAUL, JOAT 8 8 [facility] NEW/ESTAB R PATIENT 40 MIN OFFICE 92285 EHSAN MOSER OUTPATIEN 8 8 SHAKIRA SHAKIRA T VISIT 15 MINUTES EMERGENCY 54987 ROSALINDA DUNN, 8 8 MEDICAL [place] B [facility] T VISIT [facility] HIGH/URGE NT SEVERITY
--- OUTSIDE RECORDS SUMMARY | 2017-08-17 04:41 | External Medical Summary Rpt | CCD ---
Author Author , NAHID SWENSONINDIGO Address Unknown Phone [email or web address] Care Team Providers Care Truss Driver Helper Name Role Phone A Karen MENDIETA MD PSC, Eduardo Unavailable Unavailable Karen MENDIETA MD PSC ABORDO MEETA, ABORDO Unavailable Unavailable MEETA ALHAJERI ABD, Unavailable Unavailable ALHAJERI ABD [facility] Unavailable Unavailable MEDICAL, [facility] MEDICAL AYACH SEGUNDO, AYACH SEGUNDO Unavailable Unavailable BALLERT ELSA, BALLERT Unavailable Unavailable ELSA ERWIN FRA, ERWIN Unavailable Unavailable FRA BERNERT CHARLOTTE, BERNERT Unavailable Unavailable CHARLOTTE BESSON JULIO C, BESSON Unavailable Unavailable JULIO C NIKITA SHADIA, NIKITA Unavailable Unavailable SHADIA HADLEY ALL, HADLEY ALL Unavailable Unavailable [facility] Unavailable Unavailable IMAGING CENT, [facility]available Unavailable SERVICE, [facility] Unavailable Unavailable SERVICE, [facility] BRUENING JR FADUMO, Unavailable Unavailable BRUENING JR FADUMO CALTRIDER RAN, Unavailable Unavailable CALTRIDER RAN [facility] Unavailable Unavailable HOSP, [facility] Unavailable Unavailable CAMPUS, [facility] - YORBA, Unavailable Unavailable ASIF M, CELLAROSATNAM - EWELINARBA, ASIF M [facility] Unavailable Unavailable [place], [facility] Unavailable Unavailable [place], [facility] TOBY DAMIAN, Unavailable Unavailable TOBY JR DAMIAN [facility] SHADIA, Unavailable Unavailable [facility] CLOTEN GALLEGOS, COLTEN GALLEGOS Unavailable Unavailable CHELI TALAT, [...] [facility] Unavailable Unavailable INC, [facility] Unavailable Unavailable HOSPITAL P, [facility] P [facility] Unavailable Unavailable SPECIALISTS, HE[facility] & 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 MONTALVO JULIO C, MONTALVO JULIO C Unavailable Unavailable [facility] Unavailable Unavailable PSC, [facility] Unavailable Unavailable KATHERINE, [facility] KATHERINE SADA AAR, SADA Unavailable Unavailable AAR BRYSON JR RAL, BRYSON Unavailable Unavailable JR RAL [facility] Unavailable Unavailable IMAGING ASS, [facility] [...] SERVICES, Unavailable Unavailable [facility] [place] [facility], Unavailable [facility]available ATTN: [place], [place] [facility], ATTN: [facility] Unavailable Unavailable HOLDINGS, [facility] Unavailable Unavailable HOLDINGS, [facility], Unavailable Unavailable [facility], Unavailable Unavailable [facility] LINDSEY KAYLYN, LINDSEY KAYLYN Unavailable Unavailable LUTZ TRA, LUTZ TRA Unavailable Unavailable [facility] Unavailable Unavailable SERVICES, [facility] FARHAT SANTIAGO, FARHAT Unavailable Unavailable [...] Unavailable JEANNETTE MAT, JEANNETTE MAT Unavailable Unavailable [facility], Unavailable Unavailable [facility] BIANCA BRADSHAW, Unavailable Unavailable BIANCA BRADSHAW WALKER FOR, WALKER Unavailable Unavailable FOR YUENE JR THO, YUENE Unavailable Unavailable JR THO Purpose Continuity of Care Document - 12-18-2007 through 2016 Problems Code Diagnosis DOS Provider Status [id number] UNS OPEN 09-03-2016 [facility] WOUND UNS [facility] INITIAL ENCOUNTER J449 CHRONIC 08-26-2016 [facility] P DISEASE UNS [id number] PAIN IN 08-26-2016 [facility] R05 COUGH 08-26-2016 [facility] R0602 SHORTNESS 08-26-2016 [facility] M7655YS UNS INJURY 08-26-2016 [facility] ENCOUNTER [id number] UNSPECIFIED 08-26-2016 [facility] P ENCOUNTER Z720 TOBACCO USE 08-26-2016 [facility] P I671 CEREBRAL 05-28-2016 [facility] SERV NONRUPTURED FOUNDATION I739 PERIPHERAL 05-28-2016 [facility] DISEASE [facility] UNSPECIFIED H538 OTHER 05-23-2016 [facility] DISTURBANCE [facility] S H9313 TINNITUS 05-23-2016 [facility]ILATERAL [facility] R51 HEADACHE 05-23-2016 [facility] [id number] PRIMARY 05-07-2016 [facility] OSTEOARTHRI [facility] TIS RIGHT ASSOC PSC SHOULDER M86026 OTHER 05-07-2016 [facility] SYNOVITIS L [facility] AND ASS[facility] PSC TENOSYNOVIT IS RIGHT SHOULDER [id number] PAIN IN 04-12-2016 [facility] 80835 OSTEOARTHRO 06-14-2015 [facility] UNSPEC SERV GEN/LOC FOUNDATION PELV REGION&THIG H 31242 UNSPECIFIED 06-14-2015 [facility] ARTHROPATHY [facility] OTHER SPECIFIED SITES V4364 HIP JOINT 06-14-2015 [facility] BY OTHER MEANS 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 V5481 AFTERCARE 12-07-2014 [facility] FOLLOWING [facility] JOINT [facility] REPLACEMENT 61742 PRESSURE 11-26-2014 [facility] UNSPECIFIED MEDICAL SITE EQUIPME 7209 UNSPECIFIED 11-26-2014 [facility] INFLAMMATOR MEDICAL Y EQUIPME SPONDYLOPAT HY 4373 CEREBRAL 09-20-2014 [facility]EURYS[facility], SERV NONRUPTURED FOUNDATION V1259 PERS HX, 09-20-2014 [facility] DISEASES OF CIRCULATORY SYSTEM V6709 FOLLOW-UP 09-20-2014 [facility] FOLLOWING OTHER SURGERY 5990 URINARY 09-13-2014 [facility] INFECTION LA SITE NOT SPECIFIED 4988 OTHER 08-03-2014 [facility] SPECIFIED HEALTH ANEMIAS CAMPUS 12523 OTHER 08-03-2014 [facility] CHRONIC HEALTH PAIN CAMPUS 496 CHRONIC 08-03-2014 [facility] AIRWAY HEALTH OBSTRUCTION CAMPUS NEC 25984 MUSCLE 08-03-2014 [facility] WEAKNESS HEALTH (GENERALIZE CAMPUS D) 7812 ABNORMALITY 08-03-2014 [facility] OF [facility] 39502 UNSPECIFIED 08-03-2014 [facility] RETENTION HEALTH OF URINE CAMPUS 23180 UNSPECIFIED 08-03-2014 [facility] E 91823 OTH 07-28-2014 A Karen DELGADO MD PSC NS DUE INTERNAL JOINT PROSTHESIS 58319 PAIN IN 07-20-2014 [facility] PELVIC REGION AND THIGH 41953 UNSPECIFIED 07-17-2014 [facility] ARTHROPATHY FOUNDATIO PELVIC REGION AND THIGH 78977 NONTRAUMATI 07-17-2014 [facility] RUPTURE SERV OF TENDONS FOUNDATIO OF BICEPS 7993 UNSPECIFIED 07-17-2014 [facility] DEBILITY [facility] 2859 UNSPECIFIED 07-14-2014 [facility] ANEMIA [facility] 7823 EDEMA 07-14-2014 [facility] V4365 KNEE JOINT 07-14-2014 [facility] REPLAC[facility] SERV BY OTHER FOUNDATIO MEANS 3384 CHRONIC 07-13-2014 [facility] [place] [facility] SYNDROME FOUNDAT[facility] 08937 UNSPECIFIED 07-13-2014 [facility] CONSTIPATIO FOUNDATIO N 94984 PRESSURE 07-09-2014 [facility] SERV BUTTOCK FOUNDATIO 93467 PRESSURE 07-09-2014 [facility] STAGE SERV II FOUNDATIO 58416 GENERALIZED 07-09-2014 [facility]IN [facility] 7292 UNSPECIFIED 07-08-2014 [place] [facility] NEURALGIA SERV NEURITIS FOUNDATIO AND RADICULITIS 1123 CANDIDIASIS 07-03-2014 [facility] 48684 OTHER 07-03-2014 [place] [facility] SPECIFIED SERV ERYTHEMATOU FOUNDATIO S CONDITION OTHER 31165 PRESSURE 07-03-2014 [facility] LOWER SERV BACK FOUNDATIO 22173 PRESSURE 07-03-2014 [facility] STAGE SERV I FOUNDATIO 7140 RHEUMATOID 07-03-2014 [place] [facility] ARTHRITIS SERV [facility] 7820 DISTURBANCE 07-03-2014 [facility] V1302 PERSONAL 07-03-2014 [facility] UR[facility]ARY [facility] TRACT INFECTION V5789 OTHER 07-03-2014 [facility] SPECIFIED [facility] ION PROCEDURE OTHER 21379 PRIMARY LOC 06-30-2014 [facility] OSTEOARTHRO FOUNDATIO SIS PELVIC REGION&THIG H 80410 CHEST PAIN 06-30-2014 [place] [facility] UNSPECIFIED SERV FOUNDATION V4589 OTHER 06-30-2014 [facility] POSTSURGICA SERV L STATUS FOUNDATIO OTHER V5881 FITTING AND 06-30-2014 [facility] ADJUST[facility] SERV OF FOUNDATIO VASCULAR CATHETER 2102 BENIGN 06-28-2014 [place] [facility] NEOPLASM OF SERV MAJOR FOUNDATION SALIVARY GLANDS 7840 HEADACHE 06-28-2014 [facility] 19243 OTHER 06-28-2014 [facility] DYSPNEA AND SERV [facility] RESPIRATORY ABNORMALITI ES 7295 PAIN IN 06-24-2014 [facility] SOFT [facility] TISSUES OF FOUNDATION LIMB 10084 SHORTNESS 06-24-2014 [place] [facility] OF BREATH SERV FOUNDATIO 07230 OTHER 06-24-2014 [place] [facility] NONSPECIFIC SERV ABNORMAL FOUNDATIO FINDING OF LUNG FIELD 7881 DYSURIA 06-16-2014 [employer] 4329 UNSPECIFIED 06-06-2014 [facility] INTRACRANIA L HEMORRHAGE V5863 LONG-TERM 06-06-2014 [facility] USE OF HOSPITAL ANTIPLATELE T/ANTITHROM BOTIC 91433 UNSPECIFIED 05-03-2014 [place] [facility] TINNITUS SERV F[facility] 21361 UNSPECIFIED 05-03-2014 [facility] SENSORINEUR FOUNDATIO AL HEARING LOSS 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 31096 SPINAL STEN 04-21-2014 [place] [facility] LUMB REG SERV W/O FOUNDATIO NEUROGENIC CLAUDICATIO N 7243 SCIATICA 04-21-2014 [facility] 5967 HEMORRHAGE 01-03-2014 [place] [...] [place] [facility] DISORDER SERV OF BLADDER FOUNDATIO 88419 HEMATURIA 01-02-2014 [place] [facility] UNSPECIFIED SERV FOUNDATIO 6238 OTHER 01-02-2014 [facility] SPECIFIED [facility] NONINFLAMMA SERVICE TORY DISORDER VAGINA 6259 UNSPEC 01-02-2014 [facility] SYMPTOM SERV ASSOC FOUNDATIO W/FEMALE GENITAL ORGANS 42869 ABDOMINAL 01-02-2014 [facility] PAIN, AMBULANCE UNSPECIFIED SERVICE SITE 5952 OTHER 12-16-2013 [facility] CHRONIC SERV CYSTITIS FOUNDATIO 5959 UNSPECIFIED 12-16-2013 [facility] CYSTITIS SERV F[facility] 81801 OTHER 12-16-2013 [facility] SPECIFIED SERV DISORDERS FOUNDATIO OF BLADDER 53240 GROSS 12-16-2013 [facility] HEMATURIA SERVICES 4292 UNSPECIFIED 12-13-2013 [facility] CARDIOVASCU LAR DISEASE V7283 OTHER 12-13-2013 [facility] PRE-OPERATI VE EXAMINATION V7284 UNSPECIFIED 12-13-2013 [facility] PRE-OPERATI FOUNDATION VE EXAMINATION 6256 FEMALE 11-24-2013 [facility] INCONTINENC E 20108 URGE 11-24-2013 [facility] 49476 INCONTINENC 11-24-2013 [facility] E WITHOUT HOSPITAL SENSORY AWARENESS 5539 ABHISHEK UNS 11-15-2013 [facility] S[facility] ABD SERV CAV W/O FOUNDATIO MENTION OBST/GANGRE N 77707 DIVERTICULO 11-15-2013 [facility] SIS OF SERV SMALL FOUNDATIO INTESTINE 32193 DIVERTICULO 11-15-2013 [facility] COLON 06109 CALCU 11-15-2013 [facility] W/O MENTION CHOLECYST/O BST 7935 NONSPECIFIC 11-15-2013 [facility] FINDING RAD & OTH EXAM ORGAN 37544 ANEURYSM OF 11-09-2013 [facility] SPECIFIED ARTERY 54351 OTHER 10-06-2013 [facility] URINARY SERV INCONTINENC FOUNDATIO E 49603 POLYURIA 10-01-2013 [facility] 75175 DEHYDRATION 09-16-2013 [facility] 7226 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 SITE UNSPEC V8801 ACQUIRED 09-16-2013 [facility] ABSENCE OF [facility]OSPITAL BOTH CERVIX AND UTERUS 03060 MALIHA 08-10-2013 [facility] MIGRAINE SERV NEC W/O FOUNDATIO INTRACT W/O STAT MIGRNOSUS 74285 NUCLEAR 08-10-2013 [facility] SCLEROSIS SERV FOUNDATIO 2382 NEOPLASM OF 08-09-2013 [facility] BEHAVIOR OF SKIN 67609 OTHER 08-09-2013 [facility] KERATOSIS V5866 LONG-TERM 07-15-2013 [facility] USE [facility] ASPIRIN 2410 NONTOXIC 05-26-2013 [facility] GO[facility] INC 2409 GOITER, 05-05-2013 [facility] UNSPECIFIED SERV FOUNDATIO 4371 OTH 05-05-2013 [facility] GENERALIZED SERV ISCHEMIC FOUNDATIO CEREBROVASC ULAR DISEASE 4429 OTHER 05-04-2013 [facility]Y SERVICES UNSPECIFIED SITE 2559 UNSPECIFIED 11-19-2012 [facility] OF ADRENAL GLANDS 2558 OTHER 10-05-2012 [facility] DISORDERS OF ADRENAL GLANDS 5718 OTHER 10-05-2012 [facility] NONALCOHOLI C LIVER DISEASE 1120 CANDIDIASIS 09-25-2012 A Karen FABIAN MD PSC 59707 OSTEOARTHRO 09-14-2012 [facility] UNSPEC EMERGENCY WHETHER SERVICES GEN/LOC UNSPEC SITE 7220 DISPLCMT 09-14-2012 [facility] MEDICAL INTERVERT IMAGING ASS DISC WITHOUT MYELOPATHY 7224 DEGENERATIO 09-14-2012 [facility] OF MEDICAL CERVICAL IMAGING ASS INTERVERTEB RAL DISC 8470 NECK SPRAIN 09-14-2012 [facility] 7821 RASH AND 09-07-2012 A Karen SUAZO MD [facility] NONSPECIFIC SKIN ERUPTION 7842 SWELLING 08-24-2012 [facility] MASS OR SERV LUMP IN FOUNDATIO HEAD AND NECK 683 ACUTE 06-22-2012 [facility] LYMPHADENIT SERV IS FOUNDATIO 7242 LUMBAGO 06-15-2012 Eduardo MENDIETA MD PSC 2469 UNSPECIFIED 05-15-2012 [facility] DISORDER SERV OF THYROID FOUNDATIO 33381 COR 05-15-2012 [facility] ATHEROSLERO SERV UNSPEC FOUNDATIO TYPE VESSEL [place]LYNN T 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 4779 ALLERGIC 05-15-2012 [facility] RHINITIS SERV CAUSE FOUNDATIO UNSPECIFIED 5533 DIAPHRAGMAT 05-15-2012 [facility] W/O [facility] MENTION OBSTRUCTION /GANGREN 7231 CERVICALGIA 05-15-2012 [facility] 57673 DYSPHONIA 05-15-2012 [facility] 7856 ENLARGEMENT 05-15-2012 [facility] NODES 38003 OTHER VOICE 01-27-2012 [facility] RESONANCE FOUNDATIO DISORDERS 2720 PURE 10-01-2011 [facility] HYPERCHOLES [facility] TEROLEMIA 2724 OTHER AND 10-01-2011 [facility] UNSPECIFIED NEUMANNS EXTENDED H HYPERLIPIDE MARJORIE 3559 MONONEURITI 10-01-2011 [facility] S OF NEUMANNS UNSPECIFIED EXTENDED H SITE 4910 SIMPLE 10-01-2011 [facility] CHRONIC NEUMANNS BRONCHITIS EXTENDED H 91228 UNSPECIFIED 10-01-2011 [facility] NEUMANNS ARTHROPATHY EXTENDED H SITE UNSPECIFIED V5861 LONG-TERM 10-01-2011 [facility] USE OF ANTICOAGULA NTS V6759 OTHER 10-01-2011 [facility] FOLLOW[facility]UP [facility] EXAMINATION OTHER 4240 MITRAL 09-10-2011 [facility] DISORDERS MEDICAL 24866 OTHER CHEST 09-10-2011 [facility] MEDICAL 21923 ABDOMINAL 09-10-2011 [facility], SERVICES GENERALIZED 94007 ABDOMINAL 09-10-2011 [facility] OTHER REGIONAL SPECIFIED MEDICAL SITE V641 SURG/OTH 09-10-2011 [facility] PROC NOT REGIONAL DONE MEDICAL BECAUSE CONTRAINDIC ATION 4659 ACUTE URIS 08-27-2011 [facility] NEUMANNS UNSPECIFIED EXTENDED H SITE 54232 OTHER 08-05-2011 NEURODIAGNO MALAISE AND STICPSC FATIGUE V5883 ENCOUNTER 06-21-2011 [facility] THERAPEUTIC DRUG MONITORING V7109 OBSERVATION 06-21-2011 [facility] OF OTHER DIAGNOSTICS SUSPECTED MENTAL CONDITION 0539 HERPES 05-23-2011 [facility] ZOSTER NEUMANNS WITHOUT EXTENDED H MENTION OF COMPLICATIO N 7244 THORACIC/JAY 05-23-2011 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 [facility] OR LARYNX 4786 EDEMA OF 05-14-2011 [facility] 4241 AORTIC 04-25-2011 [facility] DISORDERS SPECIALISTS 67461 PRECORDIAL 04-25-2011 HEART & PAIN 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 EDUCATION INSTRUCTOR V5869 LONG-TERM 04-18-2011 [facility] USE OF OTHER MEDICATIONS 2278 SHAYNE 04-06-2011 [place] NE[facility] GLANDS&RELA CIERA STRCT 06929 JAW PAIN 04-06-2011 [facility] MED CTR, ATTN: DENE 2374 NEOPLASM 03-27-2011 [facility] SERV BHV FOUNDATIO OTH&UNSPEC ENDOCRN GLANDS 4019 UNSPECIFIED 03-13-2011 [facility] ESSENTIAL MED CTR, HYPERTENSIO ATTN: DENE N 32021 OTHER 03-13-2011 [facility] SPECIFIED MED CTR, DISORDER OF ATTN: DENE INTESTINES 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 5789 UNSPECIFIED 03-07-2011 [facility] HEMORRHAGE PHYSICIAN OF KATHERINE GASTROINTES TINAL TRACT 5781 BLOOD IN 03-04-2011 [facility] 2350 NEOPLASM 02-18-2011 [facility] UNCERTAIN PHYSICIAN BEHAVIOR KATHERINE MAJOR SALIV GLANDS 43663 TOX DIFFUSE 02-18-2011 [facility] W/O CLINIC PSC THYROTOX CRISIS/STOR M 4780 HYPERTROPHY 02-18-2011 [facility] PSC TURBINATES 25387 DYSPHAGIA 02-18-2011 [facility] UNSPECIFIED CLINIC PSC 2397 NEOPLSM UNS 02-07-2011 [facility] NATR MED CTR, ENDOCRN ATTN: DANIEL GLND&OTH PART NERV SYS 7062 SEBACEOUS 02-01-2011 [facility] PAB CYST 02259 EFFUSION OF 12-03-2010 NEURODIAGNO SHOULDER [facility] JOINT 44855 PAIN IN 12-03-2010 NEURODIAGNO JOINT, [facility] SHOULDER REGION 98805 STIFFNESS 12-03-2010 NEURODIAGNO OF JOINT [facility] SHOULDER REGION 29967 OTHER 11-08-2010 [facility] SPECIFIED MEDI ARTHROPATHY [facility] SITE UNSPECIFIED 89238 LOC 10-04-2010 [facility] OSTEOARTHRO MED CTR, S NOT SPEC ATTN: EVERE WHETHER PRIM/SEC HAND 16006 OSTEOARTHRO 10-04-2010 [facility] UNSPEC [facility] GEN/LOCALIZ ED HAND 56655 SWELLING OF 10-04-2010 [facility] LIMB MED CTR, ATTN: DANIEL 9158 OTH&UNSPEC 10-04-2010 [facility] SUP INJURY MED CTR, FINGER ATTN: DANIEL WITHOUT MENTION INF 17387 OTHER&UNSPE 09-21-2010 [facility] C DISC MED CTR, DISORDER ATTN: DANIEL UNSPEC REGION V571 OTHER 09-21-2010 [facility] PHYSICAL MED CTR, THERAPY ATTN: DANIEL 7212 THORACIC 09-04-2010 [facility] SPONDYLOSIS MED CTR WITHOUT MYELOPATHY 7241 PAIN IN 09-04-2010 [facility] THORACIC MED CTR SPINE 7245 UNSPECIFIED 09-04-2010 [facility] P[facility] BACKACHE 71283 PAINFUL 08-25-2010 [facility] RESPIRATION MED CTR 27246 HERPES 08-24-2010 [facility] PAB ZOSTER KERATOCONJU NCTIVITIS V574 ORTHOPTIC 08-21-2010 [facility] TRAINING MED CTR 08924 PAIN IN 07-19-2010 [facility] PAB JOINT, LOWER LEG 55878 GALLSTONE 06-13-2010 [facility] 64246 DISORDER OF 06-06-2010 [facility] UNSPECIFIED CENT 89577 ACUTE 05-17-2009 [facility], LARYNGITIS, SHAKIRA WITHOUT MENTION OF OBSTRUCTIO 7234 BRACHIAL 03-02-2009 [facility], NEURITIS OR SHAKIRA RADICULITIS NOS 9156 FINGER SUP 09-07-2008 [place] [facility] W/O [facility] MED CTR OPEN WOUND&W/O MENTION INF 85783 NAUSEA 12-19-2007 [facility] Procedures Procedure DOS Code Location Performer Comment DEBRIDEME 18180 [facility] VO NT OPEN 6 [facility] WOUND 20 INC INC SQ CM/< DEBRIDEME 28636 [facility] VO NT OPEN 6 [facility] WOUND 20 INC INC SQ CM/< PHYSICAL 70143 [facility] VO THERAPY 6 [facility] EVALUATIO INC INC N COMPREHEN 16962 [facility] SIVE 6 [facility] METABOLIC INC INC PANEL CREATINE 20042 [facility] VO KINASE MB 6 [facility] FRACTION INC INC ONLY CREATINE 02810 [facility] VO KINASE 6 [facility] TOTAL INC INC ECG 92459 [facility] VO ROUTINE 6 [facility] ECG INC INC W/LEAST 12 LDS TRCG ONLY W/O I&R RADIOLOGI 87331 [facility] ALL C 6 MEDICAL EXAMINATI IMAGING ON K[place]EE 3 [place] [address] [facility] VO TROPONIN 6 [facility] QUANTITAT INC INC [place] BLOOD 41810 [facility] VO COUNT 6 [facility] MEM HOS[facility] COMPLETE INC INC AUTO&AUTO DIFRNTL WBC RADIOLOGI 77046 [facility] ALL C EXAM 6 MEDICAL CHEST 2 IMAGING VIEWS ASS FRONTAL&L ATERAL ECG 36160 [facility] ROUTINE 6 [facility] W/LEAST P 12 LDS I&R ONLY ANGIOGRAP 51296 [place] [facility] HY 6 MEDICAL ABD EXTREMITY SERV FOUNDATIO UNILATERA N L RS&I SLCTV 81804 [place] [facility] CATH 6 MEDICAL ABD CAROTID/I SERV NNOM ART FOUNDATIO ANGIO N INTRCRANL ART ANESTHESI 01478 [place] DORITY A 6 MEDICAL SRI DIAGNOSTI SERV C FOUNDATIO ARTERIOGR N APHY/VENO GRAPH 3D 01896 [place] RANDYJER[facility] RENDERING 6 MEDICAL ABD SERV W/INTERP& FOUNDATIO POSTPROC N DIFF WORK STATION LOCM Q9967 [facility] [phone] Y Y MG/ML HOSPITAL HOSPITAL IODINE CONCENTRA TION PER ML CREATININ 29160 [facility] E BLOOD [place] [address] LESLIE RASLAU ANGIOGRAP 6 MEDICAL FLA HY HEAD SERV W/CONTRAS FOUNDATIO T/NONCONT N RAST THERAPEUT 25230 PROFESSIO CROSSFIEL IC PX 1/> 6 [facility] EACH 15 PSC MIN EXERCISES THERAPEUT 78913 PROFESSIO CROSSFIEL IC PX 1/> 6 [facility] EACH 15 PSC MIN EXERCISES PHYSICAL 42328 PROFESS[facility] CROSSFIEL THERAPY 6 NAL REHAB D SH[facility]IA EVALUATIO ASSOC N PSC RADEX 08936 [place] [facility] ALL SHOULDER 6 MEDICAL 1 VIEW IMAGING ASS RADEX 59496 [facility] MCGILLON SHOULDER 6 MEM HOS[facility] MEM HOSP COMPLETE INC INC MINIMUM 2 VIEWS RADEX 81483 [facility] MONETTMER HIPS 5 MEDICAL Y JUS BILATERAL SERV 2 VIEWS FOUNDATIO ANTEROPOS N T PELVIS RADIOLOGI 00716 [facility] 5 Y Y [facility] ON PELVIS 1/2 VIEWS RADEX HIP 21455 [facility] 5 Y Y [facility] COMPLE[facility] MINIMUM 2 VIEWS HOS BED E0260 [...] MATTRESS EQUIPME EQUIPME OVERLY/PA D PUMP SLCTV 46554 [facility] CATH 4 Y Y CAROTID/I [facility] NNOM ART ANGIO INTRCRANL ART PROTHROMB 02465 [facility] IN TIME 4 Y Y HOSPITAL HOSPITAL INJECTION J1644 [facility] HEPARIN 4 Y Y SODIUM [facility] PER 1000 UNITS BLOOD [id number] [facility] COUNT 4 Y Y COMPLETE [facility] AUTOMATED GUIDE C1769 [facility] WIRE 4 Y Y HOSPITAL HOSPITAL INJECTION J3010 [facility] FENTANYL 4 Y Y CITRATE [facility] 0.1 MG INFUSION J7030 [facility] NORMAL 4 Y Y SALINE [facility] SOLUTION 1000 CC CLOSURE C1760 [facility] DEVICE 4 Y Y VASCULAR [facility] INTRDUCR/ C1894 [facility] SHEATH 4 Y Y NOT GUID [facility] INTRACARD EP NON-LASR PLCMT [id number] [facility] OCCL DEVC 4 Y Y HOSPITAL HOSPITAL IRENE/ART POST SURG/INTR VNL PROC US VASC [id number] [facility] ACCESS 4 Y Y SITS VSL [facility] PATENCY NDL ENTRY COMPREHEN [id number] [facility] SIVE 4 Y Y METABOLIC [facility] PANEL SLCTV [id number] [facility] CATH 4 Y Y INTRNL [facility] CAROTID ART ANGIO INTRCRNL ART LOCM Q9967 [facility] [phone] Y Y MG/ML [facility] IODINE CONCENTRA TION PER ML INJECTION J0330 [facility] 4 Y Y SUCCINYLC [facility] HOLINE CHLORIDE UP TO 20 MG ANESTHESI 66784 [place] RAMAIAH A 4 MEDICAL DIN CAROTID/C SERV ORONARY FOUNDATIO THER N IVNTL RAD 3D 24424 [facility] RENDERING 4 Y Y HOSPITAL HOSPITAL W/INTERP& POSTPROC DIFF WORK STATION SUSCEPTIB [id number] COMBINED COMBINED ILITY 4 PHYSICIAN PHYSICIAN STUDY S LA S LA ANTIMICRO BIAL DISK METHOD CULTURE 29807 COMBINED COMBINED BACTERIAL 4 PHYSICIAN PHYSICIAN S LA S LA QUANTTATI VE COLONY COUNT URINE URNLS DIP 10544 COMBINED COMBINED 4 PHYSICIAN PHYSICIAN STICK/TAB S [...] WALK-PAIR EQUIPME EQUIPME SEAT ATTCH WALK SBSQ 22750 [facility] 4 [facility] PSC CARE/DAY E/M STABLE 10 MIN SBSQ 18421 [facility] 4 [facility] PSC CARE/DAY E/M STABLE 10 MIN RADEX HIP 00481 [facility] 4 Y Y [facility] L 1 VIEW RADIOLOGI [id number] [facility] 4 Y Y [facility] ON PELVIS / [facility] [address] [facility] 4 MEDICAL NAN DAY SERV MANAGEMEN FOUNDATIO T 30 MIN/< SBSQ 82776 [place] [address] MEDICAL [place] CARE/DAY SERV 25 FOUNDATIO MINUTES SBSQ 13546 [place] [address] MEDICAL NAN CARE/DAY SERV 25 FOUNDATIO MINUTES SBSQ 25096 [place] [address] MEDICAL NAN CARE/DAY SERV 25 FOUNDATIO MINUTES SBSQ 13500 [place] [address] MEDICAL NAN CARE/DAY SERV 25 FOUNDATIO MINUTES SBSQ 74728 [place] [address] MEDICAL NAN CARE/DAY SERV 25 FOUNDATIO MINUTES SBSQ 92429 [place] [address] MEDICAL NAN CARE/DAY SERV 25 FOUNDATIO MINUTES SBSQ 92385 [place] [address] MEDICAL MAXINE CARE/DAY SERV 25 FOUNDATIO MINUTES SBSQ 49321 [facility] 4 MEDICAL KER RAN CARE/DAY SERV 25 FOUNDATIO MINUTES SBSQ 80897 [facility] 4 MEDICAL KER RAN CARE/DAY SERV 25 FOUNDATIO MINUTES SBSQ 52212 [facility] 4 MEDICAL NAN CARE/DAY SERV 25 FOUNDATIO MINUTES SBSQ 99919 [place] [address] MEDICAL NAN CARE/DAY SERV 25 FOUNDATIO MINUTES SBSQ 98044 [place] [address] MEDICAL NAN CARE/DAY SERV 25 FOUNDATIO MINUTES SBSQ 90937 [place] [address] MEDICAL NAN CARE/DAY SERV 25 FOUNDATIO MINUTES DUP-SCAN 50298 EUGENIA EUGENIA XTR VEINS 4 GABBIE GABBIE COMPLETE BILATERAL STUDY SBSQ 24855 [place] [address] MEDICAL MICAELA CARE/DAY SERV 35 FOUNDATIO MINUTES SBSQ 05635 [place] [address] MEDICAL ALA CARE/DAY SERV 35 FOUNDATIO MINUTES N INITIAL 55217 [place] [address] MEDICAL MICAELA CARE/DAY SERV 70 FOUNDATIO MINUTES SBSQ 68140 [place] [address] MEDICAL ALA CARE/DAY SERV 35 FOUNDATIO MINUTES N SBSQ 50398 [place] [address] MEDICAL ALA CARE/DAY SERV 25 FOUNDATIO MINUTES N RADEX HIP 40529 [place] [address] MEDICAL MEDICAL UNILATERA SERV SERV L FOUNDATIO FOUNDATIO COMPLETE MINIMUM 2 VIEWS ARTHRP 41170 [place] ARUN ABHI ACETBLR/P 4 MEDICAL EVELIN FEM SERV PROSTC FOUNDATIO AGRFT/ALG RFT SBSQ 01815 [place] [address] MEDICAL ALA CARE/DAY SERV 25 FOUNDATIO MINUTES N LEVEL III 52145 [place] LAUREANO SURG 4 MEDICAL SHADIA PATHOLOGY SERV FOUNDATIO GROSS&MIRTA ROSCOPIC EXAM DECALCIFI 39686 [place] [facility] CATION 4 MEDICAL SHADIA PROCEDURE SERV FOUNDATIO RADIOLOGI 27079 [place] ERWIN C 4 MEDICAL FRA EXAMINATI SERV ON PELVIS FOUNDATIO 1/2 VIEWS ECG 40958 [place] CLAUDETTE CHI ROUTINE 4 MEDICAL ECG SERV W/LEAST FOUNDATIO 12 LDS N I&R ONLY SBSQ 12614 [facility] 4 MEDICAL ALA CARE/DAY SERV 25 FOUNDATIO MINUTES N SBSQ 26068 [facility] 4 MEDICAL ALA CARE/DAY SERV 25 FOUNDATIO MINUTES N SBSQ [address] [facility] 4 MEDICAL CARE/DAY SERV 25 FOUNDATIO MINUTES N SBSQ [address] [facility] 4 MEDICAL CARE/DAY SERV 25 FOUNDATIO MINUTES N SBSQ [address]448 [facility] 4 MEDICAL CARE/DAY SERV 25 FOUNDATIO MINUTES N RADIOLOGI 24650 [place] USHA LEEANN C 4 MEDICAL EXAMINATI SERV ON CHEST FOUNDATIO [place]AL RADIOLOGI 10222 [facility] 4 MEDICAL EXAMINATI SERV ON CHEST FOUNDATIO [place] FRONTAL ECG 63786 [place] CLAUDETTE CHI ROUTINE 4 MEDICAL ECG SERV W/LEAST FOUNDATIO 12 LDS N I&R ONLY RADIOLOGI 56770 [place] USHA LEEANN C 4 MEDICAL EXAMINATI SERV ON PELVIS FOUNDATIO 1/2 VIEWS RADEX HIP 93815 [facility] 4 MEDICAL UNILATERA SERV L FOUNDATIO COMPLETE MINIMUM 2 VIEWS ARTHRP 95255 [place] ARUN ABHI ACETBLR/P 4 MEDICAL EVELIN FEM SERV PROSTC FOUNDATIO AGRFT/ALG RFT INITIAL 53282 [facility] 4 MEDICAL CARE/DAY SERV 50 FOUNDATIO MINUTES N LEVEL III 08861 [facility] SURG 4 MEDICAL [place] PATHOLOGY SERV FOUNDATIO GROSS&MIRTA ROSCOPIC EXAM DECALCIFI 74277 [facility] CATION 4 MEDICAL [place] PROCEDURE SERV FOUNDATIO ANESTHESI 60572 [facility] BRUENING A OPEN 4 LTH JR FADUMO TOTAL HIP ANESTHESI A PSC ARTHROPLA STY SUSCEPTIB 01746 [facility] LTY STDY 4 DIAGNOSTI DIAGNOSTI ANTIMICRB [facility] IAL MICRO/AGA R DILUTJ CUL BACT 92433 [facility] AEROBIC 4 DIAGNOSTI DIAGNOST[facility] METHS DEFINITIV E EA ISOL CULTURE 39066 [facility] BACTERIAL 4 DIAGNOSTI [facility] QUANTTATI VE COLONY COUNT URINE CULTURE 09978 [facility] BCT 4 DIAGNOSTI DIAGNOSTI ISOL&PRSM CS [facility] LLC PTV ID ISOLATE EA URINE CULTURE 80606 [facility] BACTERIAL 4 Y Y HOSPITAL [facility] QUANTTATI VE COLONY COUNT URINE BLOOD 67903 [facility] COUNT 4 Y Y COMPLETE [facility] AUTOMATED PREALBUMI 36257 [facility] N 4 Y Y HOSPITAL HOSPITAL CUL BACT 45776 [facility] AEROBIC 4 Y Y ADDL [facility] METHS DEFINITIV E EA ISOL URNLS DIP 25701 [facility] 4 Y Y STICK/TAB [facility] LET REAGENT AUTO MICROSCOP Y SUSCEPTIB 39011 [facility] LTY STDY 4 Y Y ANTIMICRB [facility] IAL MICRO/AGA R DILUTJ COLLECTIO 75256 [facility] N VENOUS 4 Y Y BLOOD [facility] VENIPUNCT URE BASIC 40078 [facility] METABOLIC 4 Y Y PANEL [facility] CALCIUM TOTAL RADEX 81353 [place] [facility] SPINE 4 MEDICAL TALAT LUMBOSACR IMAGING AL ONLY ASS BENDING 2/3 VIEWS RADEX HIP 76911 [place] [facility] 4 MEDICAL TALAT UNILATERA IMAGING L ASS COMPLETE MINIMUM 2 VIEWS HOSPITAL 89148 [place] [facility] DISCHARGE 4 MEDICAL ELSA DAY SERV MANAGEMEN FOUNDATIO T 30 MIN/< GROUND A0425 [facility] MILEAGE 4 AMBULANCE AMBULANCE PER SERVICE SERVICE STATUTE MILE AMB A0427 [facility] SERVICE 4 AMBULANCE AMBULANCE ALS SERVICE SERVICE [place]SP[place] L[place] 1 [place] [address] [place] HEIDI RETROPERI 4 MEDICAL MAT TONEAL SERV REAL TIME FOUNDATIO W/[place] [address] [place] DEWAYNE ABDOMEN & 4 MEDICAL SCO PELVIS SERV W/CONTRAS FOUNDATIO T MATERIAL ANES 10554 [place] CALELIZABETHIDER TRANSURET 4 MEDICAL RAN HRAL SERVICES W/URETHRO CYSTOSCOP Y NOS CYSTOURET 03869 [place] HROSCOPY 4 MEDICAL ELSA [place] [address] [place] LINDSE[place] KAYLYN SURG 4 MEDICAL PATHOLOGY SERV FOUNDATIO GROSS&MIRTA ROSCOPIC EXAM ECG 78508 [facility] ROUTINE 4 Y Y ECG [facility] W/LEAST 12 LDS TRCG ONLY W/O I&R CULTURE 69631 [facility] BACTERIAL 4 Y Y HOSPITAL [facility] QUANTTATI VE COLONY COUNT URINE CULTURE 19976 [facility] BCT 4 Y Y ISOL&PRSM [facility] PTV ID ISOLATE EA URINE ECG 51644 [place] YASMANY TATA ROUTINE 4 MEDICAL ECG SERV W/LEAST FOUNDATIO 12 LDS N I&R ONLY CULTURE 27536 [facility] BACTERIAL 4 Y Y [facility] QUANTTATI VE COLONY COUNT URINE CYSTOURET 97856 [place] [facility] HROSCOPY 4 MEDICAL ELSA SERV FOUNDATIO URNLS DIP 36011 [place] [facility] 4 MEDICAL ELSA STICK/TAB SERV LET RGNT FOUNDATIO AUTO W/O MICROSCOP Y URNLS DIP 93394 [place] [facility] 4 MEDICAL ELSA STICK/TAB SERV LET RGNT FOUNDATIO AUTO W/O MICROSCOP Y LOCM Q9967 [facility] [phone] 4 Y Y MG/ML [facility] IODINE CONCENTRA TION PER ML CYSTOURET 48127 [place] HROSCOPY 4 MEDICAL ELSA SERV FOUNDATIO CUL BACT 80377 [facility] AEROBIC 4 Y Y ADDL [facility] [place] [address] [facility] ABDOMEN & 4 Y Y PELVIS [facility] W/O CONTRST 1/> BODY RE CULTURE 17494 [facility] BACTERIAL 4 Y Y [facility] QUANTTA VE COLONY COUNT URINE SUSCEPTIB 30527 [facility] LTY STDY 4 Y Y ANTIMICRB [facility] IAL MICRO/AGA R DILUTJ CLOSURE C1760 [facility] DEVICE 4 Y Y VASCULAR [facility] INTRDUCR/ C1894 [facility] SHEATH 4 Y Y NOT GUID [facility] INTRACARD EP NON-LASR INFUSION J7030 [facility] NORMAL 4 [facility] SOLUTION 1000 CC INJECTION J0171 [facility] 4 Y Y ADRENALIN [facility] EPINEPHRI NE 0.1 MG INJECTION J2710 [facility] 4 Y Y NEOSTIGMI [facility] NE METHYLSUL FATE UP TO 0.5 MG INJECTION J3010 [facility] FENTANYL 4 Y Y CITRATE [facility] 0.1 MG GUIDE C1769 [facility] WIRE 4 Y Y HOSPITAL HOSPITAL BLOOD 53078 [facility] COUNT 4 Y Y COMPLETE [facility] AUTOMATED THROMBOPL 25588 [facility] ASTIN 4 Y Y TIME [facility]OSPITAL PARTIAL PLASMA/WH OLE BLOOD PROTHROMB 44366 [facility] IN TIME 4 Y Y HOSPITAL HOSPITAL INJECTION J1644 [facility] HEPARIN 4 Y Y SODIUM [facility] PER 1000 UNITS LOCM Q9967 [facility] [phone] 4 Y Y MG/ML [facility]OSPITAL IODINE CONCENTRA TION PER ML ANESTHESI 82175 [place] TSE [place] [address] [place] [address] CAROTID/C SERV ORONARY FOUNDATIO THER IVNTL RAD INJECTION J2405 [facility] PER 1 MG SLCTV 03048 [facility] CATH 4 Y Y INTRNL [facility] CAROTID ART ANGIO INTRCRNL ART US VASC 97725 [facility] ACCESS 4 Y Y SITS VSL [facility] PATENCY NDL ENTRY COMPREHEN 83436 [facility] SIVE 4 Y Y METABOLIC [facility] PANEL PLCMT G0269 [facility] OCCL DEVC 4 Y Y HOSPITAL HOSPITAL IRENE/ART POST SURG/INTR VNL PROC 3D 22723 [facility] RENDERING 4 Y Y HOSPITAL HOSPITAL W/INTERP& POSTPROC DIFF WORK STATION FAREED 38972 LESLIE JOHNSON POST-VOID 3 MEDICAL ELSA ING SERV RESIDUAL FOUNDATIO URINE&/BL ADDER CAP URNLS DIP 32470 [place] ALEX 3 MEDICAL ELSA STICK/TAB SERV LET RGNT FOUNDATIO AUTO W/O MICROSCOP Y CYTP 87782 [facility] SLCTV 3 Y Y CELL HOSPITAL [facility] ENHANCEME NT INTERPJ XCPT C/V CULTURE 31217 [facility] BACTERIAL 3 Y Y HOSPITAL [facility] QUANTTATI VE COLONY COUNT URINE CULTURE 76692 [facility] BACTERIAL 3 EDDIE [facility] QUANTTA VE COLONY COUNT URINE BLOOD [address] [facility] UNIVERS COUNT 3 Y Y COMPLETE [facility]OSPITAL HOSPITAL AUTOMATED INFUSION J7030 [facility] NORMAL 3 Y Y SALINE [facility] SOLUTION 1000 CC INJECTION J0692 [facility] 3 Y Y HOSPITAL [facility] HOME RIDE 500 MG HOSPITAL G0378 [facility] 3 Y Y ON HOSPITAL HOSPITAL SERVICE PER HOUR BASIC 25595 [facility] METABOLIC 3 Y Y PANEL [facility] CALCIUM TOTAL INJECTION J0692 [facility] 3 Y Y H[facility] RIDE 500 MG INFUSION J7030 [facility] NORMAL 3 Y Y SALINE [facility] SOLUTION 1000 CC INJECTION J1956 [facility] 3 Y Y LEVOFLOXA [facility] WILLI 250 MG INJECTION J1956 [facility] 3 Y Y LEVOFLOXA [facility] WILLI 250 MG INJECTION J1170 [facility] 3 Y Y HYDROMORP [facility] STEVE UP TO [address] B[address] [facility] COUNT 3 Y Y COMPLETE [facility] AUTO&AUTO DIFRNTL WBC CULTURE 93509 [facility] BACTERIAL 3 Y Y HOSPITAL [facility] QUANTTATI VE COLONY COUNT URINE URNLS DIP 06107 [facility] 3 Y Y STICK/TAB HOSPITAL HOSPITAL LET REAGENT AUTO MICROSCOP Y INFUSION J7030 [facility] NORMAL 3 Y Y SALINE [facility] [place] [address] [place] [address] [facility] ABDOMEN & 3 Y Y PELVIS [facility]OSP[facility] W/CONTRAS T MATERIAL INJECTION J2405 [facility] 3 [facility] PER 1 MG LOCM Q9967 [facility] 300-399 3 Y Y MG/ML HOSPITAL HOSPITAL [place] [address] [facility] INFUSION 3 Y Y THER [facility] PROPH ADDL SEQUENTIA L TO 1 HR INITIAL 77628 JAMES SEGUNDO OBSERVATI 3 EMERGENCY ON SERVICES CARE/DAY 70 MINUTES COMPREHEN 54866 [facility] SIVE 3 Y Y METABOLIC [facility] PANEL THER 14196 [facility] PROPH/DX 3 Y Y NJX EA [facility] SEQL IV PUSH SBST/[place] F[place] [address] [facility] INFUSION 3 Y Y THERAPY/P [facility] ROPHYLAXI S /DX 1ST TO 1 HR THERAPEUT 10885 [facility] IC 3 Y Y INJECTION [facility] IV PUSH EACH NEW DRUG AMB A0427 [facility] SERVICE 3 AMBULANCE AMBULANCE ALS SERVICE SERVICE EMERGENCY TRANSPORT LEVEL 1 GROUND A0425 [facility] MILEAGE 3 AMBULANCE AMBULANCE PER SERVICE SERVICE STATUTE MILE BASIC 78119 [facility] K[facility] METABOLIC 3 EDDIE EDDIE PANEL [place] [address] [facility] SURG 3 DIAGNOSTI DIAGNOSTI PATHOLOGY CS CS GROSS&MIRTA ROSCOPIC EXAM SLCTV 03794 [place] LUZ MARINA CATH 3 MEDICAL ABD INTRNL SERV CAROTID FOUNDATIO ART ANGIO INTRCRNL ART ANES ICRA 60669 [place] STEYN PIE 3 MEDICAL ICAR/AORT SERV IC THER FOUNDATIO IVNTL RAD ARTL 3D 97453 [place] RENDERING 3 MEDICAL MEDICAL SERV SERV W/INTERP& FOUNDATIO FOUNDATIO POSTPROC DIFF WORK STATION TRANSCATH 83199 [place] ALHAJERI ETER 3 MEDICAL ABD EMBOLIZAT SERV ION ANY FOUNDATIO METH RS&I ANGRPH 71534 [place] CATH F-UP 3 MEDICAL MEDICAL STD TCAT SERV SERV OTHER FOUNDATIO FOUNDATIO THAN THROMBYLS IS TCAT 71033 [place] PERMANENT 3 MEDICAL MEDICAL SERV SERV OCCLUSION FOUNDATIO FOUNDATIO /EMBOLIZA TION PRQ NEON SIGN ERECTOR ARTL 71409 [place] STE[place] PIE CATHJ/CAN 3 MEDICAL NULJ SERV MNTR/JOE FOUNDATIO SFUSION SPX PRQ US SOFT 23635 [facility] VO TISSUE 3 [facility] HEAD & INC [place] [address] LESLIE RASLAU ANGIOGRAP 3 MEDICAL FLA HY NECK SERV W/CONTRAS [place]OUNDATIO T/[place] [address] [place] RASLAU ANGIOGRAP 3 MEDICAL FLA HY HEAD SERV W/CONTRAS FOUNDATIO T/NONCONT RAST BLOOD 19404 [facility] VO COUNT 3 MEM [facility] COMPLETE INC INC AUTO&[place] [address] [facility] VO HEAD/BRAI 3 MEM [facility] N W/O INC INC CONTRAST MATERIAL 3D 51543 T[facility] VO RENDERING 3 MEM HOS[facility] MEM [facility]OS[facility] W/INTERP INC INC & POSTPROCE SS SUPERVISI ON BASIC 60207 [facility] VO METABOLIC 3 MEM HOS[facility] MEM HOS[facility] PANEL INC INC CALCIUM TOTAL SLCTV 17663 LESLIE ALHAJERI CATH 3 MEDICAL ABD INTRNL SERV CAROTID FOUNDATIO ART ANGIO INTRCRNL ART 3D 29397 [place] ALHAJER[place] RENDERING 3 MEDICAL ABD SERV W/INTERP& FOUNDATIO POSTPROC DIFF WORK STATION ANESTHESI 52264 LESLIE COVARRUBIAS PIE A 3 MEDICAL CAROTID/C SERV ORONARY FOUNDATIO THER IVNTL RAD LOCM Q99[address] [facility] UNIVERS 300-399 2 Y Y MG/ML [facility] [place] [address] [facility] ABDOMEN & 2 Y Y PELVIS [facility] W/CONTRAS T MATERIAL GLUCOSE 35557 Eduardo VENEGAS JULIO C QUANTITAT 2 [place]AY[facility] [place] [address] RACHAEL CHELI CERVICAL 2 MEDICAL TALAT SPINE W/O IMAGING CONTRAST ASS MATERIAL 3D 34409 RACHAEL CHELI RENDERING 2 MEDICAL TALAT IMAGING W/INTERP& ASS POSTPROC DIFF WORK STATION THERAPEUT 90344 [facility] VO IC 2 MEM HOS[facility]OS[facility] PROPHYLAC INC INC TIC/DX INJECTION SUBQ/IM SBSQ 91437 [place] [facility] 2 MEDICAL CARE/DAY SERV 15 FOUNDATIO MINUTES ANGIOGRAP 13879 [place] AL[place]ER[place] HY 2 MEDICAL ABD CAROTID SERV CEREBRAL FOUNDATIO UNILATERA L RS&I ANES ICRA 90232 [place] D[place] 2 MEDICAL SRI ICAR/AORT SERV IC THER FOUNDATIO IVNTL RAD ARTL SLCTV 58913 [place] CATHJ 2 MEDICAL MEDICAL 3RD+ ORD SERV SERV SLCTV FOUNDATIO FOUNDATIO THRC/BRCH /CPHLC BRNCH ARTL 22947 [place] CATHJ/CAN 2 MEDICAL SRI NULJ SERV MNTR/JOE FOUNDATIO SFUSION SPX PRQ TRANSCATH 35633 [place] ETER 2 MEDICAL MEDICAL EMBOLIZAT SERV SERV ION ANY FOUNDATIO FOUNDATIO METH RS&I TCAT 80157 [place] PERMANENT 2 MEDICAL MEDICAL SERV SERV OCCLUSION FOUNDATIO FOUNDATIO /EMBOLIZA TION PRQ NEON SIGN ERECTOR ANGRPH 61585 [place] CATH F-UP 2 MEDICAL MEDICAL STD TCAT SERV SERV OTHER FOUNDATIO FOUNDATIO THAN THROMBYLS IS ECG 93217 [place]UD[place] C ROUTINE 2 MEDICAL ECG SERV W/LEAST FOUNDATIO 12 LDS I&R ONLY URNLS DIP 15686 [facility] 2 Y Y STICK/TAB HOSPITAL HOSPITAL LET REAGENT AUTO MICROSCOP Y BLOOD 17004 [facility] COUNT 2 Y Y COMPLETE [facility] AUTOMATED BASIC 67099 [facility] METABOLIC 2 Y Y PANEL [facility] CALCIUM TOTAL COLLECTIO 95083 [facility] N VENOUS 2 Y Y BLOOD [facility] VENIPUNCT URE ANGIOGRAP 03333 [facility] 2 Y Y VERTEBRAL [facility] HOSPITAL /CERVICAL /&/INTRAC RAN RS&I LOCM Q9967 [facility] 300-399 2 Y Y MG/ML HOSPITAL HOSPITAL IODINE CONCENTRA TION PER ML ANGIOGRAP 57340 [facility] 2 Y Y CERVICOCE [facility] REBRAL CATHETER RS&I 3D 30121 [facility] 2 Y Y HOSPITAL HOSPITAL W/INTERP& POSTPROC DIFF WORK STATION INJECTION J0330 [facility] 2 Y Y SUCCINYLVENCOR HOSPITAL HOLINE CHLORIDE UP TO 20 MG ANESTHESI 71412 [place] A 2 MEDICAL SRI DIAGNOSTI SERV C FOUNDATIO ARTERIOGR APHY/VENO GRAPH US VASC 37196 [place] ACCESS 2 MEDICAL ABD SITS VSL SERV PATENCY FOUNDATIO NDL ENTRY SLCTV 37595 [facility] 2 Y Y 3RD+ ORD HOSPITAL HOSPITAL SLCT THRC/BRCH /CPHLC BRNCH PLCMT G0269 [facility] 2 Y Y [facility] IRENE/ART POST SURG/INTR VNL PROC GUIDE C1769 [facility] WIRE 2 Y Y HOSPITAL HOSPITAL INJECTION J1885 [facility] 2 Y Y KETOROLAC [facility] TROMETHAM INE PER 15 MG INJECTION J2710 [facility] 2 [facility] METHYLSUL FATE UP TO 0.5 MG ARTL 14272 [place] CATHJ/CAN 2 MEDICAL SRI NULJ SERV MNTR/JOE FOUNDATIO SFUSION SPX PRQ ANGIOGRAP 53322 [facility] 2 Y Y CAROTID [facility] CEREBRAL BILATERAL RS&I ANGIOGRAP 45438 [facility] 2 Y Y CAROTID [facility] CERVICAL BILATERAL RS&I SLCTV 55494 [facility] CATH 1ST 2 Y Y 2ND ORD HOSPITAL HOSPITAL THRC/BRCH /CPHLC BRNCH INJECTION J1644 [facility] HEPARIN 2 Y Y SODIUM [facility] PER 1000 UNITS RINGERS J7120 [facility] LACTATE 2 Y Y INFUSION [facility] UP TO 1000 CC INFUSION J7030 [facility] NORMAL 2 Y Y SALINE [facility] SOLUTION 1000 CC CLOSURE C1760 [facility] DEVICE 2 Y Y VASCULAR [facility] INTRDUCR/ C1894 [facility] SHEATH 2 Y Y NOT GUID [facility] INTRACARD EP NON-LASR ECG 51780 [place] CLAUD[place] C ROUTINE 2 MEDICAL ECG SERV W/LEAST FOUNDATIO 12 LDS I&R ONLY THROMBOPL 32396 [facility] ASTIN 2 Y Y TIME HOSPITAL [facility] PARTIAL PLASMA/WH OLE BLOOD BLOOD 13068 [facility] COUNT 2 Y Y COMPLETE [facility] AUTOMATED URNLS DIP 47727 [facility] 2 Y Y STICK/TAB [facility] LET REAGENT AUTO MICROSCOP Y PROTHROMB 54409 [facility] IN TIME 2 Y Y HOSPITAL HOSPITAL ECG 52353 [facility] ROUTINE 2 Y Y ECG [facility] W/LEAST 12 LDS TRCG ONLY W/O I&R BASIC 31928 [facility] METABOLIC 2 Y Y PANEL [facility] CALCIUM TOTAL US SOFT 29623 [facility] TISSUE 2 Y Y HEAD & [facility] NECK REAL TIME IMGE DOCM CREATININ 99678 [facility] E BLOOD [address] SOFT 52500 [facility] TISSUE 2 Y Y NECK [facility] W/[place] [address] [facility] UREA 2 Y Y NITROGEN [facility] QUANTITAT [place] LOCM Q9967 [facility] [phone] 2 Y Y MG/ML [facility] IODINE CONCENTRA TION PER ML CT THORAX 59688 [facility] 2 Y Y W/CONTRAS [facility] T MATERIAL LARYNGOSC 40337 LESLIE VALENZUELA OPY 2 MEDICAL LEEANN FLEXIBLE SERV DIAGNOSTI FOUNDATIO C PRESCRIPT [id number] [facility] IONS GEN 1 NEUMANNS PAB TRANSMITT EXTENDED ED H QUALIFIED ERX SYS COMPREHEN 82851 [facility] QUEST SIVE 1 DIAGNOSTI DIAGNOSTI METABOLIC CS CS PANEL LIPID 39064 [facility] QUEST PANEL 1 DIAGNOSTI DIAGNOSTI CS CS BASIC 73175 [facility] METABOLIC 1 AN AN PANEL [facility] [address] [facility]OM[facility] AN AN W/O & REGIONAL REGIONAL W/CONTRAS MEDICAL MEDICAL T MATERIAL PROTHROMB 13244 [facility] IN TIME 1 AN AN [facility] MEDICAL MEDICAL COLLECTIO 72119 [facility] N VENOUS 1 AN AN BLOOD [facility] VENIPUNCT MEDICAL MEDICAL URE LOCM Q9967 [facility] 300-399 1 AN AN MG/ML [facility] IODINE MEDICAL MEDICAL CONCENTRA TION PER ML BLEEDING 31453 [facility] TIME TEST 1 AN AN [facility] MEDICAL MEDICAL THROMBOPL 10056 [facility] ASTIN 1 AN AN TIME [facility] PARTIAL MEDICAL MEDICAL PLASMA/WH OLE BLOOD BLOOD 75882 [facility] COUNT 1 AN AN COMPLETE [facility] AUTO&AUTO MEDICAL MEDICAL DIFRNTL WBC INFUSION J7030 [facility] NORMAL 1 AN AN SALINE [facility] SOLUTION MEDICAL MEDICAL 1000 CC PRESCRIPT G8553 [facility] GEN 1 NEUMANNS PAB TRANSMITT EXTENDED ED H QUALIFIED ERX SYS MRI 58421 NEURODIAG LUTZ TRA SPINAL 1 NOSTICPSC CANAL LUMBAR W/O CONTRAST MATERIAL MRI 33378 NEURODIAG LUTZ TRA SPINAL 1 NOSTICPSC CANAL CERVICAL W/O CONTRAST MATRL PRESCRIPT [id number] [facility] IONS GEN 1 NEUMANNS PAB TRANSMITT EXTENDED ED H QUALIFIED ERX SYS HEPATIC 85257 [facility] FUNCTION 1 DIAGNOSTI DIAGNOSTI PANEL [facility] US SOFT 15437 [place] [facility] TISSUE 1 MEDICAL HEAD & SERV NECK REAL FOUNDATIO TIME IMGE DOCM BILIRUBIN 49058 [facility] DIRECT 1 [place] [address] [facility] PHOSPHATA 1 DIAGNOSTI DIAGNOSTI SE CS CS ALKALINE BILIRUBIN 07735 [facility] TOTAL 1 DIAGNOSTI DIAGNOSTI CS CS TRANSFERA 15585 [facility] SE 1 DIAGNOSTI DIAGNOSTI ASPARTATE CS CS AMINO AST SGOT TRANSFERA 65165 [facility] SE 1 DIAGNOSTI DIAGNOSTI ALANINE CS CS AMINO ALT SGPT PRESCRIPT G8553 [facility] IONS GEN 1 NEUMANNS PAB TRANSMITT EXTENDED ED H QUALIFIED ERX SYS ALBUMIN 87929 [facility] SERUM 1 DIAGNOSTI DIAGNOSTI PLASMA/WH CS CS OLE BLOOD PRESCRIPT G8553 ZEENATErica MOSER IONS GEN 1 NEUMANNS PAB TRANSMITT EXTENDED ED H QUALIFIED ERX SYS LARYNGOSC 50826 LESLIE BOOKERBIANCA OPY W/WO 1 MEDICAL LEEANN TRACHEOSC SERV OPY FOUNDATIO W/MICRO/[place] L[place] 41883 [place] LINDSE[place] KAYLYN SURG 1 MEDICAL PATHOLOGY SERV FOUNDATIO GROSS&MIRTA ROSCOPIC EXAM EXC PRTD 49185 LESLIE VALENZUELA CARLA/PRTD 1 MEDICAL LEEANN GLND LAT SERV DSJ&PRSRV FOUNDATIO FACIAL NR ECG 73843 [facility] ROUTINE 1 Y Y ECG [facility] W/LEAST 12 LDS TRCG ONLY W/O I&R ECG 93589 LESLIE CLAUDETTE C ROUTINE 1 MEDICAL ECG SERV W/LEAST FOUNDATIO 12 LDS I&R ONLY R& L HRT 36263 HEART & HEART & CATH 1 VASCULAR VASCULAR W/INJEC SPECIALIS SPECIALIS HRT TS TS ART/GRFT& L VENT I CV STRS 61106 HEART & LE[facility] TST 1 VASCULAR XERS&/OR SPECIALIS RX CONT TS ECG W/O I&R CV STRS 49533 [facility] TST 1 MED CTR, MED CTR, XERS&/OR ATTN: ATTN: RX CONT DENE DENE ECG TRCG ONLY TECHNETIU A9500 [facility] M TC-99M 1 MED CTR, MED CTR, SESTAMIBI ATTN: ATTN: DX PER DENE DENE STUDY DOSE MYOCARDIA 36768 HEART & HEART & L SPECT 1 VASCULAR VASCULAR SINGLE SPECIALIS SPECIALIS STUDY AT [facility] REST OR STRESS MYOCARDIA 98104 [place] [facility] [place] L SPECT 1 MED CTR, MED CTR, MULTIPLE ATTN: ATTN: STUDIES DENE DENE ECHO 50155 HEART & LEIDY [facility]ANE TTHRC R-T 1 VASCULAR 2D SPECIALIS W/WOM-MOD TS E COMPL SPEC&COLR D INJECTION J2785 [facility] 1 MED CTR, MED CTR, REGADENOS ATTN: ATTN: ON 0.1 MG DENE DENE SPECTROPH 53666 [facility] OTOMET[facility] [address] [facility] [employer] ANALYT NOT ELSEWHERE SPECIFIED PH BODY 55211 [facility] FLUID NOT [address] [facility] [employer] INC ELSEWHERE SPECIFIED CREATININ 06371 [facility] E OTHER 1 [place] [address] [facility] INFUSION 1 MED CTR, MED CTR, HYDRATION ATTN: ATTN: INITIAL DENE DENE 31 MIN-1 [place] [address] [facility] INFUSION 1 MED CTR, MED CTR, THERAPY ATTN: ATTN: PROPHYLAX DENE DENE IS/DX EA HOUR CT THORAX 21144 [facility] 1 MED CTR, MED CTR, W/CONTRAS ATTN: ATTN: T DENE DENE MATERIAL CT THORAX 49149 [place] 1 RIVER HBP SHADIA W/CONTRAS LLC T MATERIAL RADIOLOGI 27392 [place] C [address] [place] [address] HBP SHADIA EXAMINATI LLC ON CHEST SINGLE VIEW FRONTAL CUL BACT 87498 [facility] AEROBIC 1 MED CTR, MED CTR, ADDL ATTN: ATTN: METHS DENE DENE DEFINITIV E EA ISOL ARTERIAL 61872 [facility] PUNCTURE 1 MED CTR, MED CTR, WITHDRAWA ATTN: ATTN: L BLOOD DENE DENE DX BLOOD 29102 [facility] GASES ANY 1 MED CTR, MED CTR, ATTN: ATTN: COMBINATI DENE DENE ON PH PCO2 PO2 CO2 HCO3 URNLS DIP 60416 [facility] 1 MED CTR, MED CTR, STICK/TAB ATTN: ATTN: LET DENE DENE REAGENT AUTO MICROSCOP Y CULTURE 49299 [facility] BACTERIAL 1 MED CTR, MED CTR, ATTN: ATTN: QUANTTATI DENE DENE VE COLONY COUNT URINE HEMOGLOBI 00962 [place] N 1 MED CTR, MED CTR, METHEMOGL ATTN: ATTN: OBIN DANIEL DENE QUANTITAT [place] NATRIURET 33461 [place] IC 1 MED CTR, MED CTR, PEPTIDE ATTN: ATTN: [place] [address] [place] TROPONIN 1 MED CTR, MED CTR, QUANTITAT ATTN: ATTN: WEST[place] DENE DENE BLOOD 58230 [place] COUNT 1 MED CTR, MED CTR, COMPLETE ATTN: ATTN: AUTO&AUTO DENE DENE DIFRNTL WBC SUSCEPTIB 87110 [place] LTY STDY 1 MED CTR, MED CTR, ANTIMICRB ATTN: ATTN: IAL DANIEL SANCHEZ MICRO/AGA R DILUTJ INJECTION J0696 [place] 1 MED CTR, MED CTR, CEFTRIAXO ATTN: ATTN: NE SODIUM DANIEL DENE PER 250 MG CREATINE 08964 [place] KINASE 1 MED CTR, MED CTR, TOTAL ATTN: ATTN: [place] [address] [place] MAGNESIUM 1 MED CTR, MED CTR, ATTN: ATTN: DENE DENE ECG 29658 [place] ROUTINE 1 MED CTR, MED CTR, ECG ATTN: ATTN: W/LEAST DENE DENE 12 LDS TRCG ONLY W/O I&R FIBRIN 23439 [place] DGRADJ 1 MED CTR, MED CTR, PRODUCTS ATTN: ATTN: D-DIMER DENE DENE QUAL/SEMI JUAN CARLOS COMPREHEN 55912 [place] SIVE 1 MED CTR, MED CTR, METABOLIC ATTN: ATTN: PANEL DENE DENE COLLECTIO 49414 [place] N VENOUS 1 MED CTR, MED CTR, BLOOD ATTN: ATTN: VENIPUNCT DENE DENE URE GASES 29272 [place] BLOOD PH 1 MED CTR, MED CTR, DIRECT ATTN: ATTN: FAREED XCPT DENE DENE PULSE OXIMITRY CARBOXYHE 86407 [place] MOGLOBIN 1 MED CTR, MED CTR, QUANTITAT ATTN: ATTN: [place]ST[place] DANIEL DENE CREATINE 30154 [place] KINASE MB 1 MED CTR, MED CTR, FRACTION ATTN: ATTN: ONLY DANIEL SANCHEZ LOCM Q9967 [facility] [place] RIVER [phone] 1 MED CTR, MED CTR, MG/ML ATTN: ATTN: IODINE DENE DENE CONCENTRA TION PER ML CYTP FINE 79822 [place] NO[place] NDL 1 MEDICAL BRILL YOL ASPIRATE SERV IMMT FOUNDATIO CYTOHIST STD DX 1ST CYTP EVAL 37608 [place] FINE 1 MEDICAL BRILL YOL NEEDLE SERV ASPIRATE FOUNDATIO INTERP & RE[place] [address] [place] FRIED A GUIDANCE 1 MEDICAL NEEDLE SERV PLACEMENT FOUNDATIO IMG S&I FINE 35351 [place] FRIED A NEEDLE 1 MEDICAL ASPIRATIO SERV N WITH FOUNDATIO IMAGING GUIDANCE CYTP FINE 78759 [place] NO[place]LE NDL 1 MEDICAL BRILL YOL ASPIRATE SERV IMMT FOUNDATIO CYTOHIST STD EA EVAL RADEX 99679 [place] ABDOMEN 1 1 RIVER HBP [facility] LLC ANTEROPOS TERIOR VIEW RADEX 44072 [place] ABDOMEN 1 1 RIVER HBP SH[facility]IA LLC ANTEROPOS TERIOR VIEW SIGMOIDOS 66346 [facility] L[place] RIVER COPY FLX 1 MED CTR, MED CTR, DX ATTN: ATTN: W/COLLKarl SANCHEZ SPEC BR/WA IF PFRMD ESOPHAGOG 19823 BRENDA CHOWDHURYSPIKEAvelina ASTRODUOD 1 PHYSICIAN MAXINE ENOSCOPY KATHERINE TRANSORAL DIAGNOSTI C COLONOSCO 28045 BRENDA CHOWDHURYSPWALLY PY FLX DX 1 PHYSICIAN MAXINE W/COLLJ KATHERINE SPEC WHEN PFRMD INJECTION J2765 [facility] 1 MED CTR, MED CTR, METOCLOPR ATTN: ATTN: AMIDE HCL DENE DENE UP TO 10 MG INJECTION J2250 [facility] 1 MED CTR, MED CTR, MIDAZOLAM ATTN: ATTN: HCL PER DENE DENE 1 MG ECG 71867 [facility] ROUTINE 1 MEDICAL MEETA ECG SPECIALIT W/LEAST Y CL 12 LDS I&[place] [address] RACHAEL NIKITA ABDOMEN & 1 RIVER HBP SHADIA PELVIS LLC W/CONTRAS T MATERIAL RADIOLOGI 70485 RACHAEL NIKITA C EXAM 1 RIVER HBP SHADIA CHEST 2 LLC VIEWS FRONTAL&L ATERAL BLOOD 85009 [facility] COUNT 1 [facility] COMPLETE AUTO&[place] [address] [facility] THYROID 1 [facility] STIMULATI NG HORMONE TSH COMPREHEN 32050 [facility] SIVE 1 [facility] METABOLIC PANEL CYTP EVAL 03486 [place] COLTEN GALLEGOS FINE 1 MEDICAL NEEDLE SERV ASPIRATE FOUNDATIO INTERP & REPORT FINE 97729 [place] COLTEN GALLEGOS NEEDLE 1 MEDICAL ASPIRATIO SERV N W/O FOUNDATIO IMAGING GUIDANCE LARYNGOSC 70993 [facility] OPY 1 ENT TAR INDIRECT CLINIC DIAGNOSTI PSC C SPX CREATININ 79893 [facility] E BLOOD 1 MED CTR, MED CTR, ATTN: ATTN: DANIEL SANCHEZ US SOFT 89797 [facility] NIKITA TISSUE 1 RIVER HBP SHADIA HEAD & LLC [place] [address] [facility] UREA 1 MED CTR, MED CTR, NITROGEN ATTN: ATTN: QUANTITAT DANIEL SANCHEZ [place] SOFT 02458 [facility] NIKITA TISSUE 1 RIVER HBP SHADIA NECK LLC W/CONTRAS T MATERIAL COLLECTIO 54685 [facility] N VENOUS 1 MED CTR, MED CTR, BLOOD ATTN: ATTN: VENIPIVAN SANCHEZ URE COMPREHEN 61826 [facility] SIVE 1 [facility] [place] [address] [facility] THYROID 1 [facility] STIMULATI NG HORMONE TSH LIPID 53219 [facility] PANEL 1 [facility] BLOOD 18302 [facility] COUNT 1 [facility] COMPLETE AUTO&AUTO DIFRNTL WBC MRI 18638 NEURODIAG [place] SPINAL 1 NOSTICPSC ROL CANAL CERVICAL W/O CONTRAST MATRL MRI 67418 [facility]UR[facility] [place] SPINAL 1 NOSTICPSC ROL CANAL LUMBAR W/O CONTRAST MATERIAL MRI ANY 42109 NEURODIAG [place] JT UPPER 1 NOSTICPSC ROL EXTREMITY W/O CONTRAST MATRL WALKER E0143 GEO GEO FOLDING 1 CO MEDI CO MEDI WHEELED [facility] ADJUSTABL E/FIXED HEIGHT HEPATIC 97553 [facility] FUNCTION 0 [facility] PANEL THERAPEUT 84385 [place] IC PX 1/> 0 MED CTR, MED CTR, AREAS ATTN: ATTN: EACH 15 DENE DENE MIN EXERCISES THERAPEUT 74029 [place] IC PX 1/> [...] THAN WND CARE PART TX PLAN THERAPEUT 37181 [place] IC PX 1/> 0 MED CTR MED CTR AREAS EACH 15 MIN EXERCISES THERAPEUT 00188 [place] IC PX 1/> 0 MED CTR MED CTR AREAS EACH 15 MIN EXERCISES E-STIM G0283 [place] 1/> AREAS 0 MED CTR MED CTR OTH THAN WND CARE PART TX PLAN PHYSICAL 66168 [place] THERAPY 0 MED CTR MED CTR RE-EVALUA TION THERAPEUT 45523 [place] IC PX 1/> 0 MED CTR MED CTR AREAS EACH 15 MIN EXERCISES E-STIM G0283 [place] 1/> AREAS 0 MED CTR MED CTR OTH THAN WND CARE PART TX PLAN RADEX 06373 RACHAEL NIKITA SPINE 0 RIVER HBP SHADIA THORACIC LLC 3 VIEWS THERAPEUT 66390 [place] PX 1/> 0 MED CTR MED CTR AREAS EACH 15 MIN EXERCISES RADEX 52980 RACHAEL NIKITA SPINE 0 RIVER HBP SHADIA LUMBOSACR LLC AL 2/3 VIEWS E-STIM G0283 [place] 1/> AREAS 0 MED CTR MED CTR OTH THAN WND CARE PART TX PLAN E-STIM G0283 [place] 1/> AREAS 0 MED CTR MED CTR OTH THAN WND CARE PART TX PLAN THERAPEUT 50291 [place] IC PX 1/> 0 MED CTR MED CTR AREAS EACH 15 MIN EXERCISES THERAPEUT 25472 [place] IC PX 1/> 0 MED CTR MED CTR AREAS EACH 15 MIN EXERCISES E-STIM G0283 [place] 1/> AREAS 0 MED CTR MED CTR OTH THAN WND CARE PART TX PLAN RADIOLOGI 88038 [place] C 0 MED CTR MED CTR EXAMINATI ON CHEST SINGLE VIEW FRONTAL E-STIM G0283 [place] 1/> AREAS 0 MED CTR MED CTR OTH THAN WND CARE PART TX PLAN ECG 72791 EHSAN EHSAN ROUTINE 0 PAB PAB ECG W/LEAST 12 LDS W/I&R THERAPEUT 89877 [place] IC PX 1/> 0 MED CTR MED CTR AREAS EACH 15 MIN EXERCISES THERAPEUT 13574 [place] IC PX 1/> 0 MED CTR MED CTR AREAS EACH 15 MIN EXERCISES E-STIM G0283 [place] 1/> AREAS 0 MED CTR MED CTR OTH THAN WND CARE PART TX PLAN THERAPEUT 78501 [place] IC PX 1/> 0 MED CTR MED CTR AREAS EACH 15 MIN EXERCISES E-STIM G0283 [place] 1/> AREAS 0 MED CTR MED CTR OTH THAN WND CARE PART TX PLAN E-STIM G0283 [place] 1/> AREAS 0 MED CTR MED CTR OTH THAN WND CARE PART TX PLAN THERAPEUT 28834 [place] IC PX 1/> 0 MED CTR MED CTR AREAS EACH 15 MIN EXERCISES THERAPEUT 93717 [place] IC PX 1/> 0 MED CTR MED CTR AREAS EACH 15 MIN EXERCISES E-STIM G0283 [place] 1/> AREAS 0 MED CTR MED CTR OTH THAN WND CARE PART TX PLAN E-STIM G0283 [place] 1/> AREAS 0 MED CTR MED CTR OTH THAN WND CARE PART TX PLAN THERAPEUT 94731 [place] IC PX 1/> 0 MED CTR MED CTR AREAS EACH 15 MIN EXERCISES PHYSICAL 02205 [place] THERAPY 0 MED CTR MED CTR RE-EVALUA TION THERAPEUT 08833 [place] P[place] 1/> 0 MED CTR MED CTR AREAS EACH 15 MIN EXERCISES E-STIM G0283 [place] 1/> AREAS 0 MED CTR MED CTR OTH THAN WND CARE PART TX PLAN BLOOD 01666 [facility] COUNT 0 [facility] COMPLETE AUTO&AUTO DIFRNTL WBC COMPREHEN 56467 [facility] SIVE 0 [facility] METABOLIC PANEL THERAPEUT 96536 [place] IC PX 1/> 0 MED CTR MED CTR AREAS EACH 15 [place] [address] [facility] THYROID 0 [facility] STIMULATI NG HORMONE TSH E-STIM G0283 [place] 1/> AREAS 0 MED CTR MED CTR OTH THAN WND CARE PART TX PLAN E-STIM G0283 [place] 1/> AREAS 0 MED CTR MED CTR OTH THAN WND CARE PART TX PLAN THERAPEUT 37757 [place] P[place] 1/> 0 MED CTR MED CTR AREAS EACH 15 MIN EXERCISES THERAPEUT 55863 [place] PX 1/> 0 MED CTR MED CTR AREAS EACH 15 MIN EXERCISES E-STIM G0283 [place] 1/> AREAS 0 MED CTR MED CTR OTH THAN WND CARE PART TX PLAN CULTURE 98267 [facility] BACTERIAL 0 [facility] QUANTTATI VE COLONY COUNT URINE CULTURE 94936 [facility] BCT 0 [facility] ISOL&PRSM PTV ID ISOLATE EA URINE URINLS 40913 EHSAN EHSAN DIP 0 PAB PAB STICK/TAB LET REAGNT NON-AUTO MICRSCPY STANDARD K0001 GEO GEO TellMiCHAI [address] [facility] R [facility] THERAPEUT 68902 [place] IC PX 1/> 0 MED CTR MED CTR AREAS EACH 15 MIN EXERCISES E-STIM G0283 [place] 1/> AREAS 0 MED CTR MED CTR OTH THAN WND CARE PART TX PLAN THERAPEUT 94974 [place] IC PX 1/> 0 MED CTR MED CTR AREAS EACH 15 MIN EXERCISES E-STIM G0283 [place] 1/> AREAS 0 MED CTR MED CTR OTH THAN WND CARE PART TX PLAN E-STIM G0283 [place] 1/> AREAS 0 MED CTR MED CTR OTH THAN WND CARE PART TX PLAN THERAPEUT 46875 [place] P[place] 1/> 0 MED CTR MED CTR AREAS EACH 15 MIN EXERCISES PHYSICAL 12425 [place] THERAPY 0 MED CTR MED CTR EVALUATIO N E-STIM G0283 [place] 1/> AREAS 0 MED CTR MED CTR OTH THAN WND CARE PART TX PLAN MRI 97086 NEURODIAG LUTZ TRA SPINAL 0 NOSTICPSC CANAL LUMBAR W/O CONTRAST MATERIAL URINLS 91168 EHSAN EHSAN DIP 0 PAB PAB STICK/TAB LET REAGNT NON-AUTO MICRSCPY CULTURE 58562 [facility] BCT 0 [facility] ISOL&PRSM PTV ID ISOLATE EA URINE CULTURE 43218 [facility] BACTERIAL 0 Ensequence INC Ensequence [place] [address] BREATHIT PAMPATI ABDOMINAL 0 [facility] REAL IMAGING TIME CENT W/IMAGE LIMITED STANDARD K0001 GEO GEO WHEELCHAI 0 CO MEDI CO MEDI R [facility] RADEX 25450 BREATHIT HOLT A SPINE 0 [facility] THORACIC IMAGING MINIMUM 4 CENT VIEWS RADEX 62016 BREATHIT HOLT A SPINE 0 [facility] LUMBOSACR IMAGING AL CENT MINIMUM 4 VIEWS CULTURE 05590 [facility] BACTERIAL 0 [facility] QUANTTATI VE COLONY COUNT URINE CULTURE 75719 [facility] BCT 0 [facility] ISOL&PRSM PTV ID ISOLATE EA URINE URINLS 90778 EHSAN EHSAN DIP 0 PAB PAB STICK/TAB [...] MEDI CO MEDI R [facility] LIPID 08929 [facility] PANEL 9 [place] [address] [facility] THYROID 9 [facility] STIMULATI NG HORMONE TSH COMPREHEN 71955 [facility] SIVE 9 [facility] METABOLIC PANEL BLOOD 93845 [facility] COUNT 9 [facility] COMPLETE AUTO&AUTO DIFRNTL WBC MRI 54195 GRAM HOLT, A SPINAL 9 RESOURCES R CANAL CERVICAL W/O CONTRAST MATRL RADEX 83674 [facility] [place] FINGR 8 MED CTR MED CTR MINIMUM 2 VIEWS INCI 8605 [place] W/REMOVAL 8 MED CTR MED CTR FB/DEVICE FROM SKIN & SUBQ TISSUE RADEX 12322 [facility] [place] SPINE 1 8 MED CTR MED CTR VIEW SPECIFY LEVEL CREATINE [address] [facility] RIVER KINASE 8 MED CTR MED CTR TOTAL GENERAL 22967 [facility] 8 MED CTR MED CTR PANEL ECG 77158 [facility] [place] ROUTINE 8 MED CTR MED CTR ECG W/LEAST 12 LDS TRCG ONLY W/O I&R COMPREHEN 43454 [facility] [place] SIVE 8 MED CTR MED CTR METABOLIC PANEL COLLECTIO 55108 [facility] [place] N VENOUS 8 MED CTR MED CTR BLOOD VENIPUNCT URE CREATINE [address] [facility] RIVER KINASE MB 8 MED CTR MED CTR FRACTION ONLY RADEX 54229 BREATHIT PAMPATI, HIPS 8 [facility] BILATERAL IMAGING 2 VIEWS CENTER ANTEROPOS T PELVIS BLOOD 95951 [facility] [place] COUNT 8 MED CTR MED CTR COMPLETE AUTO&AUTO DIFRNTL WBC DOP 49287 APPALACHI PALIWAL, ECHOCARD 8 [facility] PULSE CENTER WAVE W/SPECTRA L F-UP/LMTD STD ECHO 10956 APPALACHI PALIWAL, TRANSTHOR 8 [facility] C R-T 2D CENTER W/WO M-MODE REC F-UP/LMTD DOP 60724 APPALACHI PALIWAL, ECHOCARD 8 AN [facility]ART [facility] COLOR CENTER FLOW VELOCITY MAPPING OBSERVATI 05480 RUST ANYI, ON CARE 8 FAMILY CASA Y DISCHARGE PRACTICE CTR MANAGEMEN T Encounters Encounter Start End Date Code Location Performer Type Date [facility] TAVO - 6 6 [facility] TAVO - [address] [facility] T EMERGENCY 55696 HARRISON LERMA 6 6 [facility]IC[facility] FOR [facility]PART[facility] T VISIT HIGH/URGE NT SEVERITY [facility]OSPITAL TAV[facility] - 6 6 [facility] TAVO 6 6 [facility] T VISIT LOW/MODER SEVERITY OFFICE 87117 [facility] 6 6 MEDICAL ABD T VISIT 5 SERV MINUTES FOUNDATIO [facility] UNIVERSIT - 6 6 Y [facility] TAVO - 6 6 [facility] OFF[facility] 99977 Eduardo [facility] 6 6 GAYATRI ART T VISIT PSC 15 MINUTES [facility] UNIVERSIT - 5 5 Y [facility] T OFFICE 78872 L[facility]LIE MOE [facility] 5 5 MEDICAL T VISIT SERV 10 FOUNDATIO MINUTES [facility] UNIVERSIT - 5 5 [facility] T OFFICE 29942 [facility]IE MOE [facility] 5 5 MEDICAL T VISIT SERV 15 FOUNDATIO MINUTES [facility] UNIVERSIT - 4 4 Y [facility] T [facility] INPATIENT 4 4 [facility] UNIVERS[facility] - 4 4 [facility]PAT[facility] 4 4 [facility] CARDINAL - 4 4 [facility] UNIVERSIT [facility] 4 4 Y [facility] T OFFICE 76842 LESLIE MOE [facility] 4 4 MEDICAL T NEW 30 SERV MINUTES FOUNDATIO OFFICE 50983 LESLIE BRYSON JR OUTPATIEN 4 4 MEDICAL RAL T VISIT SERV 25 FOUNDATIO MINUTES OFFICE 29427 [place] CANDELARIO OUTPATIEN 4 4 MEDICAL PASHA T VISIT SERV 25 FOUNDATIO MINUTES OFFICE 66687 [place] LALA PHI OUTPATIEN 4 4 MEDICAL T VISIT SERV 15 FOUNDATIO MINUTES HOSPITAL TAVO - 4 4 [facility] EMERGENCY 02318 [place] HEIDI DEPT 4 4 MEDICAL MAT VISIT SERV HIGH FOUNDATIO SEVERITY& THREAT [facility] UNIVERSIT - 4 4 Y [facility] UNIVERSIT - OTHER 4 4 [facility] 4 Y [facility] UNIVERSIT - 4 4 Y [facility] UNIVERSIT - 3 3 Y [facility] T OFFICE 18753 [place] OUTPATIEN 3 3 MEDICAL ELSA T NEW 30 SERV MINUTES [facility] UNIVERSIT - 3 3 Y [facility] T EMERGENCY 85956 UNIVERSIT 3 3 Y [facility] T VISIT HIGH/URGE NT SEVERITY EMERGENCY 27173 LESLIE DOUGHERTY DEPT 3 3 MEDICAL PAMELA VISIT SERV HIGH FOUNDATIO SEVERITY& THREAT [facility] OFFICE 45821 [place] TOBY OUTPATIEN 3 3 MEDICAL JR DAMIAN T NEW 20 SERV MINUTES FOUNDATIO OFFICE 79905 [place] ALHAJERI OUTPATIEN 3 3 MEDICAL ABD T VISIT SERV 25 FOUNDATIO MINUTES OFFICE 91970 UNIVERSIT OUTPATI 3 3 Y T VISIT 5 [facility] UNIV[facility] - 3 3 Y [facility] TAVO - 3 [address] [facility] T EMERGENCY 92389 TAVO 3 3 [facility] DEPARTMEN INC T VISIT LOW/MODER SEVERITY HOSPITAL TAVO - 3 3 [facility] OUTPATIEN [facility] T EMERGENCY 86025 JAMES SMART DEPT 3 3 EMERGENCY VISIT SERVICES HIGH SEVERITY& THREAT FUNCJ OFFICE 33771 LESLIE RAZA OUTPATIEN 3 3 MEDICAL ABD T VISIT SERV [address] [facility] UNIVERSIT - 3 3 Y [facility] T OFFICE 46694 [facility] 3 3 Y T VIS[facility] UNIVERSIT - 3 3 Y [facility] T OFFICE 28394 [facility] MEDICAL ABD T VISIT SERV [address] [facility] UNIVERSIT - 2 2 [facility] T OFFICE 41986 A Karen BUNCH OUTPATIEN 2 2 GAYATRI ART T VISIT PSC 15 MINUTES EMERGENCY 69123 [facility]O [facility] V[facility] MODERATE SEVERITY HOSPITAL TAVO - 2 2 [facility] EMERGENC[facility] 92484 JAMES SMART DEPT 2 2 EMERGENCY VISIT SERVICES HIGH SEVERITY& THREAT FUNCJ OFFICE 19246 Eduardo BUNCH OUTPATIEN 2 2 GAYATRI ART T VISIT PSC 15 MINUTES OFFICE 93330 LESLIE SINGHPATIEN 2 2 MEDICAL ABD T VISIT SERV 15 FOUNDATIO MINUTES OFFICE 20681 LESLIE VALENZUELA OUTPATIEN 2 2 MEDICAL LEEANN T VISIT SERV [address] [facility] UNIVERSIT - 2 2 [facility] T OFFICE 58393 LESLIE VALENZUELA OUTPATIEN 2 2 MEDICAL LEEANN T VISIT SERV 15 FOUNDATIO MINUTES OFFICE 50290 [place] ALVENUSJERI OUTPATIEN 2 2 MEDICAL ABD T VISIT SERV 15 FOUNDATIO MINUTES OFFICE 13293 Eduardo VENEGAS [facility] OUTPATIEN 2 2 GAYATRI ART T NEW 20 [facility] UNIVERSIT [facility] 2 2 [facility] UNIVERSIT - 2 2 Y [facility] T OFFICE 06302 [place] RANDYJERI OUTPATIEN 2 2 MEDICAL ABD T NEW 45 SERV MINUTES [place]OUND[facility] OFFICE 14675 [place] BIANCA OUTPATIEN 2 2 MEDICAL LEEANN T VISIT SERV 15 FOUNDATIO MINUTES HOSPITAL UNIVERSIT - 2 2 Y [facility] T OFFICE 13752 [place] BIAN[place] OUTPATIEN 2 2 MEDICAL LEEANN T VISIT SERV 25 FOUNDATIO MINUTES OFFICE 36044 [facility] OUT[facility] 1 1 NEUMANNS PAB T VISIT EXTENDED 25 H MINUTES [facility] - 1 1 [facility] T MEDICAL OFFICE 26743 [facility] OUTPAT[facility] 1 1 NEUMANNS PAB T VISIT EXTENDED 15 H MINUTES OFFICE 54210 [facility] OUTPATIEN 1 1 NEUMANNS PAB T VISIT EXTENDED 15 H MINUTES OFFICE 99173 [facility] OUTPATI[facility] 1 1 NEUMANNS PAB T VISIT EXTENDED 25 H MINUTES OFFICE 33027 [facility] OUTPATIEN 1 1 NEUMANNS PAB T VISIT EXTENDED 15 H MINUTES OFFICE 38400 [facility] OUTPATI[facility] 1 1 NEUMANNS PAB T VISIT EXTENDED 25 H MINUTES HOSPITAL UNIVERSIT - 1 1 Y [facility] 71562 [facility] 1 1 VASCULAR T VISIT SPECIALIS 25 TS MINUTES [facility] - 1 1 MED CTR, OUTPATIEN ATTN: T DENE OFFICE 20230 LESLIE ALEMANO OUTPATIEN 1 1 MEDICAL LEEANN T VISIT SERV 40 FOUNDATIO MINUTES OFFICE 37753 LESLIE GOMEZ JR OUTPATIEN 1 1 MEDICAL THO T NEW 45 SERV MINUTES FOUNDATIO EMERGENCY 75784 [facility] 1 1 [facility] T VISIT MODERATE SEVERITY EMERGENCY 93948 [facility] 1 1 MED CTR, DEPARTMEN ATTN: T VISIT DENE HIGH/URGE NT SEVERITY [facility] - 1 1 MED CTR, OUTPATIEN ATTN: [facility] - 1 1 MED CTR, OUTPATIEN ATTN[facility] - 1 1 MED CTR, OUTPATIEN ATTN[facility] - 1 1 MED CTR, OUTPATIEN ATTN[facility] OFFICE 69798 [facility] 1 1 PHYSICIAN MAXINE T VISIT KATHERINE 10 MINUTES OFFICE 55794 EHSAN EHSAN OUTPATIEN 1 1 PAB PAB T VISIT 15 MINUTES OFFICE 09553 LESLIE VALENZUELA OUTPATIEN 1 1 MEDICAL LEEANN T NEW 45 SERV MINUTES FOUNDATIO OFFICE 97774 BRENDA CHOWDHURYWINSTONIKER OUTPATIEN 1 1 PHYSICIAN MAXINE T VISIT KATHERINE 10 MINUTES OFFICE 47217 BRENDA VAZQUEZMARIO OUTPATIEN 1 1 ENT TAR T NEW 45 CLINIC MINUTES [facility] - 1 1 MED CTR, OUTPATIEN ATTN: T [facility] OFFICE 26035 BRENDA HORN OUTPATIEN 1 1 PHYSICIAN MAXINE Santos NEW 20 KATHERINE MINUTES OFFICE [id number] EHSAN EHSAN OUTPATIEN 1 1 PAB PAB T VISIT 25 MINUTES OFFICE 28731 EHSAN EHSAN OUTPATIEN 1 1 PAB PAB T VISIT 25 MINUTES OFFICE [id number] EHSAN EHSAN OUTPATIEN 1 1 PAB PAB T VISIT 25 MINUTES [facility] [place] [facility] [facility] OUTPATIEN ATTN: T DENE OFFICE [id number] EHSAN EHSAN OUTPATIEN 0 0 PAB PAB T VISIT 25 MINUTES EMERGENCY 35057 [place] [facility] 0 [facility] T VISIT MODERATE SEVERITY [facility] [place] [facility], OUTPATIEN ATTN: T DENE OFFICE [id number] EHSAN EHSAN OUTPATIEN 0 0 PAB PAB T VISIT 25 MINUTES [facility] [place] [facility] [place] [facility] [place] [facility] T OFFICE 50175 EHS[facility] EHSAN OUTPATIEN 0 0 [facility] P[facility] T VISIT 25 MINUTES [facility] [place] [facility] T OFFICE 06576 EHSAN EHSAN OUTPATIEN 0 0 PAB PAB T VISIT 15 MINUTES OFFICE 81249 [place] OUTPATIEN 0 0 [place] [facility] 30 [facility] MINUTES [facility] [place] [facility]PATI[facility] T OFFICE [id number] EHSAN EHSAN OUTPATIEN 0 0 PAB PAB T VISIT 15 MINUTES OFFICE 09911 EHSAN EHSAN OUTPATIEN 0 0 [facility]AB [facility] T VISIT 25 MINUTES [facility] [place] [facility] [place] [facility] T OFFICE 44131 EHSAN EHSAN OUTPATIEN 0 0 PAB PAB T VISIT 25 MINUTES OFFICE 44314 EHSAN EHSAN OUTPATIEN 0 0 PAB PAB T VISIT 25 MINUTES OFFICE 35141 EHSAN EHSAN OUTPATIEN 0 0 [facility]AB P[facility] T VISIT 15 MINUTES OFFICE 45813 EHSAN EHSAN OUTPATIEN 0 0 PAB PAB T VISIT 25 MINUTES OFFICE 41239 EHSAN EHSAN OUTPATIEN 0 0 PAB PAB T VISIT 25 MINUTES OFFICE 60994 EHSAN, EHSAN, OUTPATIEN 9 9 SHAKIRA SHAKIRA T VISIT 15 MINUTES OFFICE 57874 EHSAN, EHSAN, OUTPATIEN 9 9 SHAKIRA SHAKIRA T VISIT 15 MINUTES OFFICE 70374 EHSAN, EHSAN, OUTPATIEN 9 9 SHAKIRA SHAKIRA T VISIT 25 MINUTES OFFICE 40452 EHSAN, EHSAN, OUTPATIEN 9 9 SHAKIRA SHAKIRA T VISIT 15 MINUTES OFFICE 26782 EHSAN, EHSAN, OUTPATIEN 9 9 SHAKIRA SHAKIRA T VISIT 25 MINUTES [facility] [place] [facility] [place] T [place] 80215 [place] [facility] T VISIT MODERATE SEVERITY EMERGENCY 04286 [facility] 8 8 [place] - YORBA, DEPARTMEN EMERGENCY ASIF T VISIT PHYS INC M HIGH/URGE NT SEVERITY [facility] [place] [facility] OUTPATIEN T OFFICE 12374 EHSAN MOSER OUTPATIEN 8 8 SHAKIRA SHAKIRA T VISIT 15 MINUTES EMERGENCY 43295 [place] [facility] T VISIT HIGH/URGE NT SEVERITY OFFICE 81020 EHSAN MOSER OUTPATIEN 8 8 SHAKIRA SHAKIRA T VISIT 15 MINUTES OFFICE 42372 LUIS PAUL, JOAT 8 8 [facility] NEW/ESTAB R PATIENT 40 MIN OFFICE 61592 EHSAN MOSER OUTPATIEN 8 8 SHAKIRA SHAKIRA T VISIT 15 MINUTES EMERGENCY 29012 ROSALINDA DUNN, 8 8 [facility] HIGH/URGE NT SEVERITY
--- OUTSIDE RECORDS SUMMARY | 2017-08-17 04:42 | External Medical Summary Rpt | CCD ---
Author Author , NAHID Organization NAHID Address Unknown Phone [email or web address] Immunization Name Date Rout CVX Reac Dose Comm Prov Is Faci e tion ent ider Refu lity Give sed n Infl 10-0 0.5 Hist KHAF No RITE uenz 6-20 mL oric VICKIE AID0 a 17 al AYMA 3938 Tri, Info N Adj rmat ion - Sour ce Unsp ecif ied Infl 10-2 Intr 135 999 Hist D203 No D203 uenz 5-20 amus oric 45 45 a, 16 cula al High r Info rmat Dose ion - Sour ce Unsp ecif ied
--- OUTSIDE RECORDS SUMMARY | 2017-08-17 04:42 | External Medical Summary Rpt | CCD ---
Author Author , NAHID Organization NAHID Address Unknown Phone [email or web address] Immunization Name Date Rout CVX Reac Dose [...]
== END 2017-08-16 18:50 | disposition home or self-care (01) ==
LOC: ER 16:40
PROVIDERS: General Practice
DX: J44.1 Chronic obstructive pulmonary disease with (acute) exacerbation (principal); M62.82 Rhabdomyolysis; Z79.82 Long term (current) use of aspirin; F17.210 Nicotine dependence, cigarettes, uncomplicated; Z88.0 Allergy status to penicillin; Z88.2 Allergy status to sulfonamides; Z88.7 Allergy status to serum and vaccine